=== PATIENT | female | born 1950 | race Caucasian/White ===

== ENCOUNTER 2019-06-27 13:30 | Day surgery (SDC) | payer MEDICARE, OTHER ==
[2019-06-25 09:18] VITALS: BMI 26.4
[~2019-06-27 13:30] MED LIST: HYDROmorphone 0.5 MG/0.5 ML SYRINGE IVP PRN; LACTATED RINGERS 1,000 ML IV SCH; ONDANSETRON 4 MG/2 ML VIAL IVP PRN
[2019-06-27 13:45] VITALS: TEMP 98.6
[2019-06-27] MEDS ORDERED: LIDOCAINE 1% 20 ML VIAL (10MG/ML) FOR IV START INTRADERMA ONE (13:57)
[2019-06-27] MEDS ORDERED: LIDOCAINE 1% INJ 10MG/ML (20 ML MDV) ONE (14:27)
[2019-06-27] MEDS ORDERED: PROPOFOL 10 MG/ML 20 ML VIAL IV ONE (14:27)
--- NOTE | 2019-06-27 15:27 | P.PCN ---
Date of Procedure: 06/27/19 Description of Procedure: Brief history: Patient is a pleasant scheduled for an elective upper endoscopy as well as colonoscopy as a part of evaluation of gastritis, blood per rectum and change in bowel habits. No prior colonoscopy reported. No family history of colon cancer reported. Procedure performed: Esophagogastroduodenoscopy with biopsy Colonoscopy with biopsy and tattoo Estimated blood loss: Minimal. Preoperative diagnosis: Gastritis, change in bowel habits, blood in stool [place] [facility] [place] After informed consent was obtained from the patient was brought into the endoscopy unit and IV sedation was administered by anesthesia under continuous monitoring. Initially upper endoscopy was done. The Olympus GF 190 video endoscope was inserted into the mouth and esophagus intubated without any difficulty and was gradually advanced into the stomach and duodenum and car efully examined. The bulb and second part of the duodenum appeared normal, with biopsies taken. The scope was then withdrawn into the stomach adequately insufflated with air and upon careful examination the antrum and body, cardia and fundus appeared normal, except for some mild scattered erythema in the body suggestive of mild gastritis biopsies taken. The scope was then withdrawn into the esophagus. The GE junction was located at 38 cm to the incisors. It appeared regular with no erythema erosions or ulcerations. Rest of the esophagus appeared normal. Patient tolerated the procedure well. At this time the patient continued to remain sedation. Initial digital rectal examination was normal. Olympus CF 190 video colonoscope was then inserted into the rectum and gradually advanced to distal sigmoid approximately 20 cm from the anal verge where a circumferential mass encompassing 80% of the lumen was seen. The mass was malignant-appearing and was biopsied. 3 mL of ink were used to tattoo the area distal to the mass. Retroflexion was performed in the rectum and no lesions were noted. Patient tolerated the procedure well. Impression: 1. Mild gastritis antrum and body biopsied. Duodenal biopsies. 2. Circumferential sigmoid mass 20 cm from the anal verge biopsied with tattoos placed distally to the mass. Recommendations: Findings of this examination were discussed with the patient as well as her family. Okay to resume diet. Okay to resume medications. Await pathology from biopsies. Patient will be referred for evaluation by surgical service. Primary care office will be informed of the findings.
[2019-06-27 15:39] VITALS: BP 137/85; PULSE 87; RESP 16
== END 2019-06-27 16:05 | disposition home or self-care (01) ==
LOC: ORWHC2ENDO 13:30
PROVIDERS: ATTEND Internal Medicine
DX: C18.7 Malignant neoplasm of sigmoid colon (principal); K29.50 Unspecified chronic gastritis without bleeding; I10 Essential (primary) hypertension; E07.9 Disorder of thyroid, unspecified; K21.9 Gastro-esophageal reflux disease without esophagitis; Z79.899 Other long term (current) drug therapy
CPT/HCPCS: 45380; 43239; 45381; 88305; J2001; J2704; 44404

== ENCOUNTER → 2019-07-19 | Outpatient (CLI) | payer MEDICARE, OTHER ==
[2019-07-19 11:14] LABS: Basophils % (A) 1 %; Eosinophils # (A) 0.1 k/uL (0-0.7); Eosinophils % (A) 2 %; HCT 44.8 % (34.0-46.0); HGB 14.5 gm/dL (11.4-16.0); Lymphocytes # (A) 1.1 k/uL (1.0-4.8); Lymphocytes % (A) 24 %; MCH 28.2 pg (25.0-35.0); MCHC 32.4 g/dL (31.0-37.0); MCV 87.1 fL (80.0-100.0); Monocytes # (A) 0.2 k/uL (0-1.0); Monocytes % (A) 4 %; Neutrophils % (A) 67 %; Platelet Count 272 k/uL (150-450); RBC 5.15 m/uL (3.80-5.40); RDW 12.3 % (11.5-15.5); WBC 4.4 k/uL (3.8-10.6)
[2019-07-19 11:24] LABS: INR 0.9 (<1.2); Partial Thromboplastin Time 22.9 sec (22.0-30.0); Prothrombin Time 10.1 sec (9.0-12.0)
[2019-07-19 15:54] LABS: Anion Gap 5.3 mmol/L (4.00-12.00); Carbon Dioxide 28.7 mmol/L (21.6-31.8); Non-African American GFR(CKD) 92.4 (60.0-200.0); Potassium 4.3 mmol/L (3.5-5.5)
== END ==
LOC: LABWHC1 10:41
PROVIDERS: ATTEND Student in an Organized Health Care Education/Training Program
DX: Z01.812 Encounter for preprocedural laboratory examination (principal); C18.9 Malignant neoplasm of colon, unspecified
CPT/HCPCS: 36415; 80048; 85025; 85610; 85730; 86850; 86900; 86901; 86920

== ENCOUNTER 2019-07-23 10:00 | Inpatient (IN) | payer MEDICARE, OTHER ==
[~2019-07-23 10:00] MED LIST changes: +ALVIMOPAN 12 MG CAPSULE PO ONE; +DEXAMETHASONE SOD PHOSPHATE 10 MG/ML 1 ML VIAL IV ONE; +HEPARIN SODIUM,PORCINE 5,000 UNIT/ML 1 ML VIAL SQ ONE; +MIDAZOLAM 2 MG/2 ML VIAL IV PRN; +ONDANSETRON 4 MG/2 ML VIAL IVP ONE; -ONDANSETRON 4 MG/2 ML VIAL IVP PRN; +metroNIDAZOLE-NS PMX 500 MG in SALINE 1 100ML.BAG IVPB ONE
[2019-07-23] MEDS ORDERED: LIDOCAINE 1% 20 ML VIAL (10MG/ML) FOR IV START INTRADERMA ONE (12:11)
[2019-07-23] MEDS ORDERED: MIDAZOLAM 2 MG/2 ML VIAL IV ONE (12:47)
[2019-07-23] MEDS ORDERED: LIDOCAINE 1% INJ 10MG/ML (20 ML MDV) ONE (13:09)
[2019-07-23] MEDS ORDERED: PROPOFOL 10 MG/ML 20 ML VIAL IV ONE (13:09)
[2019-07-23] MEDS ORDERED: ROCURONIUM BROMIDE 10 MG/ML 10 ML VIAL IV ONE (13:09)
[2019-07-23] MEDS ORDERED: MIDAZOLAM 2 MG/2 ML VIAL ONE (13:09)
[2019-07-23] MEDS ORDERED: NEOSTIGMINE 1 MG/ML 10 ML VIAL ONE (13:09)
[2019-07-23] MEDS ORDERED: ePHEDrine SULFATE/0.9% NACL/PF 50 MG/5 ML SYRINGE IV ONE (13:09)
[2019-07-23] MEDS ORDERED: GLYCOPYRROLATE 0.2 MG/ML 2 ML VIAL ONE (13:09)
[2019-07-23] MEDS ORDERED: fentaNYL (PF) 50 MCG/ML 2 ML AMP ONE (13:09)
[2019-07-23] MEDS ORDERED: PHENYLEPHRINE-0.9% NACL SYG 1 MG/10 ML SYRINGE ONE (13:09)
[2019-07-23] MEDS ORDERED: NALOXONE 0.4 MG/ML 1 ML VIAL IV PRN (13:20)
[2019-07-23] MEDS ORDERED: diphenhydrAMINE 50 MG/ML 1 ML VIAL IVP PRN (13:20)
[2019-07-23] MEDS ORDERED: NALBUPHINE 10 MG/ML (1 ML AMP) IV PRN (13:20)
[2019-07-23] MEDS ORDERED: LACTATED RINGERS 1,000 ML IV ONE (14:18)
--- NOTE | 2019-07-23 15:38 | P.OP ---
Date of Procedure: 07/23/19 Preoperative Diagnosis: colon cancer Postoperative Diagnosis: Same Procedure(s) Performed: Left hemicolectomy Anesthesia: GINETTE Surgeon: Peewee Rodriguez Veneer Puller #1: Jamir Prater Estimated Blood Loss (ml): 50 IV fluids (ml): 1,100 Urine output (ml): 100 Condition: stable Disposition: floor Description of Procedure: Patient is brought operative suite remained in the supine position underwent general endotracheal anesthesia per Department of anesthesia she was then placed in the lithotomy position prepped and draped in usual sterile fashion timeout performed correct patient correct procedure correct site was verified. A lower midline incision was made carried on the fashion which was incised and opened in the usual fashion no injuries were noted. The abdomen was inspected, the surface of the liver was palpated and no gross metastatic disease was noted. And the small bowel was packed into the upper quadrants. There was a retroperitoneal lesion noted at the aortic bifurcation this appeared to be mucinous in nature. Due to the mucinous nature of the lesion decision was made not to violate the retroperitoneum for biopsy or resection. The sigmoid colon was identified and the tattoo was identified. The colon was released along the white line of Toldt and approximate 8 cm proximal to the tumor the colon was stapled across with a RUTH ANN blue load 75 mm stapler. The mesentery was taken down with a LigaSure device at the base into the pelvis. At the rectosigmoid junction the colon was yet again stapled across with a 60 mm sequential firings of a Endo RUTH ANN purple load stapler. The specimen was marked with a proximal stitch and sent to pathology. There was ample amount of colon noted for anastomosis with no tension. Sizers were inserted through the rectum and 29 mm sizer was selected. The anvil was placed around the double's pursestring suture in the proximal end of the colon the sutures were tied down and a 29 mm Endo RUTH ANN stapler was used to create the low anastomosis. Leak test was performed and no leak was noted there was 2 complete donuts noted. Abdomen was copiously irrigated sponges were removed and sponge count, needle count and an short count was correct. The abdomen was closed with a 1 PDS looped suture followed by skin joshua. Sterile dressing was applied patient tolerated the procedure well no apparent complications
[2019-07-23] MEDS ORDERED: METOCLOPRAMIDE 5 MG/ML 2 ML VIAL IVP PRN (15:39)
[2019-07-23] MEDS: ROPIVACAINE 300 MG, HYDROMORPHONE (PF) 5 MG in SODIUM CHLORIDE 0.9% 190 ML EPIDURAL PRN ×2 (15:42→16:10)
[2019-07-23] MEDS: LACTATED RINGERS 1,000 ML IV SCH ×2 (16:50→23:48)
[2019-07-23 18:03] LABS: Basophils % (A) 0 %; Eosinophils % (A) 0 %; HCT 42.5 % (34.0-46.0); HGB 13.9 gm/dL (11.4-16.0); Lymphocytes # (A) 0.6 k/uL (1.0-4.8); Lymphocytes % (A) 5 %; MCH 28.6 pg (25.0-35.0); MCHC 32.8 g/dL (31.0-37.0); MCV 87.2 fL (80.0-100.0); Mean Platelet Volume 5.6; Monocytes # (A) 0.2 k/uL (0-1.0); Monocytes % (A) 1 %; Neutrophils # (A) 10.1 k/uL (1.3-7.7); Neutrophils % (A) 93 %; Platelet Count 219 k/uL (150-450); RBC 4.87 m/uL (3.80-5.40); RDW 12.3 % (11.5-15.5); WBC 10.9 k/uL (3.8-10.6)
[2019-07-23 18:07] LABS: African American GFR (CKD) >90 (>60 ml/min/1.73 sqM); Anion Gap 8 mmol/L; Blood Urea Nitrogen 19 mg/dL (7-17); Calcium 9.2 mg/dL (8.4-10.2); Carbon Dioxide 24 mmol/L (22-30); Chloride 108 mmol/L (98-107); Glucose 154 mg/dL (74-99); Non-African American GFR(CKD) >90 (>60 ml/min/1.73 sqM); Potassium 4.4 mmol/L (3.5-5.1); Sodium 140 mmol/L (137-145)
[2019-07-23] MEDS: FAMOTIDINE 20 MG/2 ML VIAL IV SCH (20:14)
[2019-07-24] MEDS: LACTATED RINGERS 1,000 ML IV SCH ×2 (05:21→19:31)
--- NOTE | 2019-07-24 07:20 | P.PN ---
Progress Note - Text 07/24 704am 68-year-old female status post left hemicolectomy by Dr. jones. Patient has an epidural catheter for postop pain control with solution running at 8 mL an hour with a VAS of 0. Patient has no motor or sensory deficits. Plan to continue epidural infusion
[2019-07-24] MEDS ORDERED: SODIUM CHLORIDE 0.9% 500 ML 500 ML IV ONE (07:36)
[2019-07-24] MEDS: METOPROLOL SUCCINATE (ER) 50 MG TAB.ER.24H PO SCH (07:54)
[2019-07-24] MEDS: FAMOTIDINE 20 MG/2 ML VIAL IV SCH ×2 (07:55→20:54)
[2019-07-24 08:00] LABS: Basophils % (A) 0 %; Eosinophils % (A) 0 %; HCT 40.8 % (34.0-46.0); HGB 13.3 gm/dL (11.4-16.0); Lymphocytes # (A) 0.7 k/uL (1.0-4.8); Lymphocytes % (A) 8 %; MCH 28.1 pg (25.0-35.0); MCHC 32.5 g/dL (31.0-37.0); MCV 86.6 fL (80.0-100.0); Mean Platelet Volume 6.3; Monocytes # (A) 0.5 k/uL (0-1.0); Monocytes % (A) 5 %; Neutrophils # (A) 7.7 k/uL (1.3-7.7); Neutrophils % (A) 85 %; Platelet Count 245 k/uL (150-450); RBC 4.71 m/uL (3.80-5.40); RDW 12.6 % (11.5-15.5)
[2019-07-24 08:15] LABS: African American GFR (CKD) >90 (>60 ml/min/1.73 sqM); Anion Gap 7 mmol/L; Blood Urea Nitrogen 26 mg/dL (7-17); Calcium 9.1 mg/dL (8.4-10.2); Carbon Dioxide 24 mmol/L (22-30); Chloride 108 mmol/L (98-107); Glucose 125 mg/dL (74-99); Non-African American GFR(CKD) 89 (>60 ml/min/1.73 sqM); Potassium 4.6 mmol/L (3.5-5.1); Sodium 139 mmol/L (137-145)
[2019-07-24] MEDS: ALVIMOPAN 12 MG CAPSULE PO SCH ×2 (09:10→20:54)
--- NOTE | 2019-07-24 14:24 | P.CONS ---
History of Present Illness - Reason for Consult Consult date: 07/23/19 Medical management Requesting physician: Peewee Rodriguez - Chief Complaint Colon cancer, post left sided colectomy, A. fib, anemia, hyperthyroidism - History of Present Illness 68-year-old female who started seen in the office patient few weeks ago found to have a new onset of A. fib was referred to have a colonoscopy came back with large mass in the left colon area patient was seen by Dr. rodriguez and schedule elective left sided colectomy. Surgery was done successfully today 07/23/2019 patient had epidural for pain management no NG tube she was diagnosed with A. fib the same time had hyperthyroidism was treated with Tapazole and has been doing well pulse rate is under control on beta cailin patient was not on any anticoagulation for now. Patient otherwise is doing well slightly bit anxious but pain is well controlled and hemodynamically very stable. Review of Systems CONSTITUTIONAL: Well-developed no acute respiratory distress. EYES: No icterus sclerae, no conjunctivitis. EARS, NOSE, MOUTH, THROAT, and FACE: No sore throat, lymphadenopathy, carotid bruits or deformity. RESPIRATORY: No SOB cough or wheezes. CARDIOVASCULAR: No CP, Palpitation, PND, Orthopnea, or angina. GASTROINTESTINAL: Slight abdominal pain with her surgical site with no nausea or vomiting. GENITOURINARY: Has a Samano catheter. INTEGUMENT/BREAST: Negative for any muscular injury with mild osteoarthritis.. HEMATOLOGIC/LYMPHATIC: Negative for bleed or purpura. MUSCULOSKELTAL: Negative for Myalgia or arthralgia. NEURLOGICAL: No LOC, Sz or syncope, blurred vision dizziness or abnormality.. BEHAVIORAL/PSYCH: Negative. ENDOCRINE: Negative. Past Medical History Past Medical History: Cancer, GERD/Reflux, Hypertension, Thyroid Disorder Additional Past Medical History / Comment(s): OCCASIONAL GERD, colon cancer, hx migraines, hx irregular heartbeat, occ blood in stool History of Any Multi-Drug Resistant Organisms: None Reported Past Surgical History: Section Additional Past Surgical History / Comment(s): colonoscopy Past Anesthesia/Blood Transfusion Reactions: No Reported Reaction Past Psychological History: No Psychological Hx Reported Smoking Status: Never smoker Past Alcohol Use History: None Reported Past Drug Use History: None Reported - Past Family History Mother Family Medical History: Cancer Father Family Medical History: Cancer Sister(s) Family Medical History: Cancer Additional Family Medical History / Comment(s): 2 SISTERS-BREAST CANCER. 1 SISTER CANCER IN LYMPH NODES. Medications and Allergies Home Medications Medication Instructions Recorded Confirmed Type Methimazole [Tapazole] 5 mg PO Q48H 06/25/19 07/23/19 History Metoprolol Succinate (ER) [Toprol 50 mg PO DAILY 06/25/19 07/23/19 History Xl] Allergies Allergy/AdvReac Type Severity Reaction Status Date / Time No Known Allergies Allergy Verified 07/23/19 12:01 Physical Exam Vitals: Vital Signs Temp Pulse Pulse Resp BP BP Pulse Ox 07/23/19 17:04 98.4 F 66 17 88/56 94 L 07/23/19 16:20 62 16 92/53 95 07/23/19 16:08 76 16 97/54 96 07/23/19 15:53 86 16 93/52 100 07/23/19 15:38 97 F L 87 18 106/56 98 07/23/19 11:59 98.6 F 102 H 16 151/76 95 Intake and Output 07/23/19 07/23/19 07/23/19 06:59 14:59 22:59 Intake Total 1500 105 Output Total 50 Balance 1500 55 Intake: IV 1500 105 Output: Estimated Blood Loss 50 Other: Voiding Method Indwelling Catheter Weight 72.121 kg 72.121 kg General Appearance: Alert, cooperative, no distress, appears stated age. Neck HEENT: Supple, no lymphadenopathy, no thyroid enlargement, no carotid bruits. Lungs: Clear to auscultation without crackles or wheezes no rhonchi, no deformity. Chest Wall: Chest wall normal expansion with deep inspiration no tenderness and no deformity was found on exam, no costochondral pain or discomfort. Heart: Regular rate and rhythm, S1, S2 normal, no murmur, rub or gallop no irregularity at the time of exam.. Back: Symmetric, no curvature, ROM normal, no CVA tenderness. Abdomen: Soft, no bowel sound, incision in the midline looks fine with no sign of bleeding. Extremities: Extremities normal, atraumatic, no cyanosis or edema. Pulses: 2+ and symmetric. Skin: Skin color, texture, tugor normal, no rashes or lesions. Neurologic: Alert oriented x3 cranial nerves II through XII intact, no motor deficit, no abnormal balance or gait. Results CBC & Chem 7: 07/24/19 07:32 07/24/19 07:45 Labs: Abnormal Lab Results - Last 24 Hours (Table) 07/19/19 07/23/19 07/23/19 Range/Units 10:51 18:00 18:00 WBC 10.9 H (3.8-10.6) k/uL Neutrophils # 10.1 H (1.3-7.7) k/uL Lymphocytes # 0.6 L (1.0-4.8) k/uL Chloride 108 H (98-107) mmol/L BUN 19 H (7-17) mg/dL Glucose 154 H (74-99) mg/dL Crossmatch See Detail Assessment and Plan Plan: 1 colon cancer: Post left sided colectomy doing well continue postsurgical care continue to watch patient hemodynamic status carefully. 2 A. fib: Pulse rate is well-controlled currently patient will continue metoprolol she is not on any anticoagulation for now except DVT prophylaxis postsurgery. 3 hyperthyroidism: On Tapazole 5 mg daily resume medication as soon as patient able to take medication. 4 anemia: Hemoglobin is holding well after surgery with no need for any transfusion but iron supplement and multivitamins. 5 hypertension: On metoprolol continue medication. 6 hyperglycemia: On diet control only Accu-Chek with sliding scales coverage and be done. 7 GI prophylaxis: Patient be on pantoprazole. 8 DVT prophylaxis: Venodyne boots and knee-high KIN hose will be done if agreeable heparin subcutaneous can be started in 24 hours. CODE STATUS: Full code. Dr. Rodriguez thank you very much for the consult if I can be any further help to please let me know
--- NOTE | 2019-07-24 15:59 | P.PN ---
Subjective Progress Note Date: 07/24/19 68-year-old female who started seen in the office patient few weeks ago found to have a new onset of A. fib was referred to have a colonoscopy came back with large mass in the left colon area patient was seen by Dr. jones and schedule elective left sided colectomy. Surgery was done successfully today 07/23/2019 patient had epidural for pain management no NG tube she was diagnosed with A. fib the same time had hyperthyroidism was treated with Tapazole and has been doing well pulse rate is under control on beta cailin patient was not on any anticoagulation for now. Patient otherwise is doing well slightly bit anxious but pain is well controlled and hemodynamically very stable. 07/24: Patient has been afebrile, heart rate 117, blood pressure 97/66, pulse ox 93% on room air repeat lab work reveals normal CBC, chloride 108, BUN 26, blood sugar 125. Patient remains with epidural in place for pain control. Patient has no motor or sensory deficits. Samano catheter remains in place. The patient is sitting up in a recliner. She denies any abdominal pain. She states she did have a small bowel movement last night. Bowel sounds are decreased. She is using incentive spirometry reaching 1000- 1500 MLS. Review of Systems CONSTITUTIONAL: Well-developed no acute respiratory distress. Denies fever, denies chills. EYES: No icterus sclerae, no conjunctivitis. EARS, NOSE, MOUTH, THROAT, and FACE: No sore throat, lymphadenopathy, carotid bruits or deformity. RESPIRATORY: No SOB cough or wheezes. CARDIOVASCULAR: No CP, Palpitation, PND, Orthopnea, or angina. GASTROINTESTINAL: Slight abdominal pain with her surgical site with no nausea or vomiting. GENITOURINARY: Has a Samano catheter. INTEGUMENT/BREAST: Negative for any muscular injury with mild osteoarthritis.. HEMATOLOGIC/LYMPHATIC: Negative for bleed or purpura. MUSCULOSKELTAL: Negative for Myalgia or arthralgia. NEURLOGICAL: No LOC, Sz or syncope, blurred vision dizziness or abnormality.. BEHAVIORAL/PSYCH: Negative. ENDOCRINE: Negative. Objective - Vital Signs Vital signs: Vital Signs Temp 98.3 F 07/24/19 07:30 Pulse 117 H 07/24/19 07:30 Resp 14 07/24/19 07:30 BP 97/66 07/24/19 07:30 Pulse Ox 93 L 07/24/19 07:30 Intake & Output 07/23/19 07/24/19 07/24/19 18:59 06:59 18:59 Intake Total 1605 1536 0.133 Output Total 50 700 Balance 1555 836 0.133 Weight 72.121 kg Intake: IV 1605 Intake, IV Titration 1536 0.133 Amount Lactated Ringers 1,000 ml 1440 @ 120 mls/hr IV .Q8H20M JOSE Rx#:[id number] Ropivacaine 300 mg 96 0.133 Hydromorphone (Pf) 5 mg In Sodium Chloride 0.9% 190 ml @ Per Protocol EPIDURAL .Q0M PRN Rx#: [id number] Output: Urine 700 Estimated Blood Loss 50 Other: Voiding Method Indwelling Catheter Indwelling Catheter - Exam General Appearance: Alert, cooperative, no distress, appears stated age. Patient is resting in chair. Neck HEENT: Supple, no lymphadenopathy, no thyroid enlargement, no carotid bruits. Lungs: Clear to auscultation without crackles or wheezes no rhonchi, no deformity. Chest Wall: Chest wall normal expansion with deep inspiration no tenderness and no deformity was found on exam, no costochondral pain or discomfort. Heart: Regular rate and rhythm, S1, S2 normal, no murmur, rub or gallop no irregularity at the time of exam.. Back: Symmetric, no curvature, ROM normal, no CVA tenderness. Abdomen: Soft, hypoactive bowel sound, incision in the midline looks fine with n o sign of bleeding. Samano catheter draining clear georgina urine. Extremities: Extremities normal, atraumatic, no cyanosis or edema. Pulses: 2+ and symmetric. Skin: Skin color, texture, tugor normal, no rashes or lesions. Neurologic: Alert oriented x3 cranial nerves II through XII intact, no motor def icit, no abnormal balance or gait. - Labs CBC & Chem 7: 07/24/19 07:32 07/24/19 07:45 Labs: Abnormal Lab Results - Last 24 Hours (Table) 07/19/19 07/23/19 07/23/19 Range/Units 10:51 18:00 18:00 WBC 10.9 H (3.8-10.6) k/uL Neutrophils # 10.1 H (1.3-7.7) k/uL Lymphocytes # 0.6 L (1.0-4.8) k/uL Chloride 108 H (98-107) mmol/L BUN 19 H (7-17) mg/dL Glucose 154 H (74-99) mg/dL Crossmatch See Detail 07/24/19 07/24/19 Range/Units 07:32 07:45 WBC (3.8-10.6) k/uL Neutrophils # (1.3-7.7) k/uL Lymphocytes # 0.7 L (1.0-4.8) k/uL Chloride 108 H (98-107) mmol/L BUN 26 H (7-17) mg/dL Glucose 125 H (74-99) mg/dL Crossmatch Assessment and Plan Plan: 1 colon cancer: Post left sided colectomy doing well continue postsurgical care continue to watch patient hemodynamic status carefully. Continue epidural for pain control, incentive spirometry, pain management. 2 A. fib: Pulse rate is well-controlled currently patient will continue metoprolol she is not on any anticoagulation for now except DVT prophylaxis postsurgery. 3 hyperthyroidism: On Tapazole 5 mg daily resume medication as soon as patient able to take medication. 4 anemia: Hemoglobin is holding well after surgery with no need for any transfusion but iron supplement and multivitamins. 5 hypertension: On metoprolol continue medication. 6 hyperglycemia: On diet control only Accu-Chek with sliding scales coverage and be done. 7 GI prophylaxis: Patient be on pantoprazole. 8 DVT prophylaxis: Venodyne boots and knee-high KIN hose will be done if agreeable heparin subcutaneous can be started in 24 hours. CODE STATUS: Full code. Discharge plan: Home Impression and plan of care have been directed as dictated by the signing physician. Puja Diamond nurse practitioner acting as scribe for signing ph ysician.
--- NOTE | 2019-07-24 16:31 | P.PN ---
Subjective Progress Note Date: 07/24/19 Patient is doing well. She apparently had a BM overnight after she was brought to her room however no flatus this AM. Objective - Vital Signs Vital signs: Vital Signs Temp 98.3 F 07/24/19 15:00 Pulse 80 07/24/19 16:00 Resp 16 07/24/19 15:00 BP 100/62 07/24/19 15:00 Pulse Ox 95 07/24/19 15:00 Intake & Output 07/23/19 07/24/19 07/24/19 18:59 06:59 18:59 Intake Total 1605 1536 44.167 Output Total 50 700 Balance 1555 836 44.167 Weight 72.121 kg Intake: IV 1605 Intake, IV Titration 1536 44.167 Amount Lactated Ringers 1,000 ml 1440 @ 120 mls/hr IV .Q8H20M JOSE Rx#:[id number] Ropivacaine 300 mg 96 44.167 Hydromorphone (Pf) 5 mg In Sodium Chloride 0.9% 190 ml @ Per Protocol EPIDURAL .Q0M PRN Rx#: [id number] Output: Urine 700 Estimated Blood Loss 50 Other: Voiding Method Indwelling Catheter Indwelling Catheter Indwelling Catheter - Constitutional General appearance: Present: cooperative - Respiratory Details: nonlabored - Cardiovascular Heart rate: 112 - Gastrointestinal Gastrointestinal Comment(s): S/NT/ND dressing is CDI - Psychiatric Psychiatric: Present: A&O x's 3 - Labs CBC & Chem 7: 07/24/19 07:32 07/24/19 07:45 Labs: Abnormal Lab Results - Last 24 Hours (Table) 07/19/19 07/23/19 07/23/19 Range/Units 10:51 18:00 18:00 WBC 10.9 H (3.8-10.6) k/uL Neutrophils # 10.1 H (1.3-7.7) k/uL Lymphocytes # 0.6 L (1.0-4.8) k/uL Chloride 108 H (98-107) mmol/L BUN 19 H (7-17) mg/dL Glucose 154 H (74-99) mg/dL Crossmatch See Detail 07/24/19 07/24/19 Range/Units 07:32 07:45 WBC (3.8-10.6) k/uL Neutrophils # (1.3-7.7) k/uL Lymphocytes # 0.7 L (1.0-4.8) k/uL Chloride 108 H (98-107) mmol/L BUN 26 H (7-17) mg/dL Glucose 125 H (74-99) mg/dL Crossmatch Assessment and Plan Assessment: POD#1 Left hemicolectomy Plan: Pain is well controlled on epidural. Management per anesthesia. She may have sips and ice chips. Ambulation/OOBTC. Cont. robledo with epidural
[2019-07-25] MEDS: LACTATED RINGERS 1,000 ML IV SCH ×4 (00:26→18:16)
[2019-07-25] MEDS: ROPIVACAINE 300 MG, HYDROMORPHONE (PF) 5 MG in SODIUM CHLORIDE 0.9% 190 ML EPIDURAL PRN (00:27)
--- NOTE | 2019-07-25 05:50 | P.PN ---
Progress Note - Text Progress Note Date: 07/25/19 68 yo female s/p open hemicolectomy, POD#2. VAS=2/10, no motor deficit. No nausea, vomiting or headache. Epidural catheter insertion site intact and clean. Keep epidural rate at 4 cc/hr.
[2019-07-25 08:33] LABS: Basophils % (A) 0 %; Eosinophils % (A) 0 %; HCT 38.1 % (34.0-46.0); HGB 12.9 gm/dL (11.4-16.0); Lymphocytes # (A) 1.3 k/uL (1.0-4.8); Lymphocytes % (A) 17 %; MCH 29.5 pg (25.0-35.0); MCHC 33.8 g/dL (31.0-37.0); MCV 87.4 fL (80.0-100.0); Mean Platelet Volume 5.5; Monocytes # (A) 0.4 k/uL (0-1.0); Monocytes % (A) 4 %; Neutrophils # (A) 6.1 k/uL (1.3-7.7); Neutrophils % (A) 77 %; Platelet Count 215 k/uL (150-450); RBC 4.36 m/uL (3.80-5.40); RDW 12.5 % (11.5-15.5)
[2019-07-25 08:43] LABS: African American GFR (CKD) >90 (>60 ml/min/1.73 sqM); Anion Gap 4 mmol/L; Blood Urea Nitrogen 23 mg/dL (7-17); Carbon Dioxide 28 mmol/L (22-30); Chloride 106 mmol/L (98-107); Glucose 86 mg/dL (74-99); Non-African American GFR(CKD) >90 (>60 ml/min/1.73 sqM); Potassium 4.6 mmol/L (3.5-5.1); Sodium 138 mmol/L (137-145)
[2019-07-25] MEDS: ALVIMOPAN 12 MG CAPSULE PO SCH ×2 (09:09→20:08)
[2019-07-25] MEDS: FAMOTIDINE 20 MG/2 ML VIAL IV SCH ×2 (09:09→20:08)
[2019-07-25] MEDS: METOPROLOL SUCCINATE (ER) 50 MG TAB.ER.24H PO SCH (09:09)
--- NOTE | 2019-07-25 12:14 | P.PN ---
Subjective Progress Note Date: 07/25/19 Patient is doing well. No reported BM or flatus. Pain well controlled. Up in chair. Objective - Vital Signs Vital signs: Vital Signs Temp 97.9 F 07/25/19 07:00 Pulse 91 07/25/19 07:00 Resp 16 07/25/19 07:00 BP 110/71 07/25/19 07:00 Pulse Ox 94 L 07/25/19 07:00 Intake & Output 07/24/19 07/25/19 07/25/19 18:59 06:59 18:59 Intake Total 44.167 1709.467 Output Total 400 975 Balance -355.833 734.467 Intake: Intake, IV Titration 44.167 1709.467 Amount Lactated Ringers 1,000 ml 1680 @ 120 mls/hr IV .Q8H20M JOSE Rx#:[id number] Ropivacaine 300 mg 44.167 29.467 Hydromorphone (Pf) 5 mg In Sodium Chloride 0.9% 190 ml @ Per Protocol EPIDURAL .Q0M PRN Rx#: [id number] Output: Urine 400 975 Other: Voiding Method Indwelling Catheter Indwelling Catheter Indwelling Catheter - Constitutional General appearance: Present: cooperative - Respiratory Details: nonlabored - Cardiovascular Rhythm: regular - Gastrointestinal Gastrointestinal Comment(s): S/ND Dressing CDI - Psychiatric Psychiatric: Present: A&O x's 3 - Labs CBC & Chem 7: 07/25/19 08:02 07/25/19 08:02 Labs: Abnormal Lab Results - Last 24 Hours (Table) 07/25/19 Range/Units 08:02 BUN 23 H (7-17) mg/dL Assessment and Plan Assessment: POD#2 Left hemicolectomy Plan: Pain is well controlled on epidural. Management per anesthesia. She may have sips and ice chips. Ambulation/OOBTC. Cont. robledo with epidural. Advance diet when return of bowel function occurs. Patient did have a small hypoechoic lesion on her liver on CT prior to surgery. Surgery was not delayed for biopsy of the lesion due to patient being symptomatic from the near obstructing lesion. I did discuss with the patient that she will need to be evaluated by IR for possible biopsy of the liver lesion. She understood
--- NOTE | 2019-07-25 13:57 | P.PN ---
Subjective Progress Note Date: 07/25/19 Principal diagnosis: Colon cancer, post left sided colectomy, A. fib, anemia, hyperthyroidism 68-year-old female who started seen in the office patient few weeks ago found to have a new onset of A. fib was referred to have a colonoscopy came back with large mass in the left colon area patient was seen by Dr. jones and schedule elective left sided colectomy. Surgery was done successfully today 07/23/2019 patient had epidural for pain management no NG tube she was diagnosed with A. fib the same time had hyperthyroidism was treated with Tapazole and has been doing well pulse rate is under control on beta cailin patient was not on any anticoagulation for now. Patient otherwise is doing well slightly bit anxious but pain is well controlled and hemodynamically very stable. 07/25: Patient is doing very well still on epidural for pain management no NG tube still have Samano catheter and ambulating with help pain is well-controlled patient is very stable hemodynamically. Objective - Vital Signs Vital signs: Vital Signs Temp 97.9 F 07/25/19 07:00 Pulse 91 07/25/19 07:00 Resp 16 07/25/19 07:00 BP 110/71 07/25/19 07:00 Pulse Ox 94 L 07/25/19 07:00 Intake & Output 07/24/19 07/25/19 07/25/19 18:59 06:59 18:59 Intake Total 44.167 1709.467 Output Total 400 975 Balance -355.833 734.467 Intake: Intake, IV Titration 44.167 1709.467 Amount Lactated Ringers 1,000 ml 1680 @ 120 mls/hr IV .Q8H20M [facility] Rx#:[id number] Ropivacaine 300 mg 44.167 29.467 Hydromorphone (Pf) 5 mg In Sodium Chloride 0.9% 190 ml @ Per Protocol EPIDURAL .Q0M PRN Rx#: [id number] Output: Urine 400 975 Other: Voiding Method Indwelling Catheter Indwelling Catheter Indwelling Catheter - Exam Review of Systems CONSTITUTIONAL: Well-developed no acute respiratory distress. EYES: No icterus sclerae, no conjunctivitis. EARS, NOSE, MOUTH, THROAT, and FACE: No sore throat, lymphadenopathy, carotid bruits or deformity. RESPIRATORY: No SOB cough or wheezes. CARDIOVASCULAR: No CP, Palpitation, PND, Orthopnea, or angina. GASTROINTESTINAL: Slight abdominal pain with her surgical site with no nausea or vomiting. GENITOURINARY: Has a Samano catheter. INTEGUMENT/BREAST: Negative for any muscular injury with mild osteoarthritis.. HEMATOLOGIC/LYMPHATIC: Negative for bleed or purpura. MUSCULOSKELTAL: Negative for Myalgia or arthralgia. NEURLOGICAL: No LOC, Sz or syncope, blurred vision dizziness or abnormality.. BEHAVIORAL/PSYCH: Negative. ENDOCRINE: Negative. Physical Exam General Appearance: Alert, cooperative, no distress, appears stated age. Neck HEENT: Supple, no lymphadenopathy, no thyroid enlargement, no carotid bruits. Lungs: Clear to auscultation without crackles or wheezes no rhonchi, no deformity. Chest Wall: Chest wall normal expansion with deep inspiration no tenderness and no deformity was found on exam, no costochondral pain or discomfort. Heart: Regular rate and rhythm, S1, S2 normal, no murmur, rub or gallop no irregularity at the time of exam.. Back: Symmetric, no curvature, ROM normal, no CVA tenderness. Abdomen: Soft, no bowel sound, incision in the midline looks fine with no sign of bleeding. Extremities: Extremities normal, atraumatic, no cyanosis or edema. Pulses: 2+ and symmetric. Skin: Skin color, texture, tugor normal, no rashes or lesions. Neurologic: Alert oriented x3 cranial nerves II through XII intact, no motor deficit, no abnormal balance or gait. - Labs CBC & Chem 7: 07/25/19 08:02 07/25/19 08:02 Labs: Abnormal Lab Results - Last 24 Hours (Table) 07/25/19 Range/Units 08:02 BUN 23 H (7-17) mg/dL Assessment and Plan Plan: 1 colon cancer: Post left sided colectomy doing well continue postsurgical care continue to watch patient hemodynamic status carefully. 2 A. fib: Pulse rate is well-controlled currently patient will continue metoprolol she is not on any anticoagulation for now except DVT prophylaxis postsurgery. 3 hyperthyroidism: On Tapazole 5 mg daily resume medication as soon as patient able to take medication. 4 anemia: Hemoglobin is holding well after surgery with no need for any transfusion but iron supplement and multivitamins. 5 hypertension: On metoprolol continue medication. 6 hyperglycemia: On diet control only Accu-Chek with sliding scales coverage and be done. 7 GI prophylaxis: Patient be on pantoprazole. Patient is doing very well advance PTOT still on epidural and well controlled on pain management, A. fib slightly more active still no anticoagulation needed at this point till this is discussed as an outpatient after recovery.
[2019-07-26] MEDS: ROPIVACAINE 300 MG, HYDROMORPHONE (PF) 5 MG in SODIUM CHLORIDE 0.9% 190 ML EPIDURAL PRN (05:03)
[2019-07-26 07:31] LABS: Basophils % (A) 0 %; Eosinophils # (A) 0.1 k/uL (0-0.7); Eosinophils % (A) 2 %; HCT 36.7 % (34.0-46.0); HGB 12.2 gm/dL (11.4-16.0); Lymphocytes # (A) 1.1 k/uL (1.0-4.8); Lymphocytes % (A) 18 %; MCH 29.1 pg (25.0-35.0); MCHC 33.2 g/dL (31.0-37.0); MCV 87.5 fL (80.0-100.0); Mean Platelet Volume 7.1; Monocytes # (A) 0.3 k/uL (0-1.0); Monocytes % (A) 4 %; Neutrophils # (A) 4.6 k/uL (1.3-7.7); Neutrophils % (A) 75 %; Platelet Count 166 k/uL (150-450); RDW 12.1 % (11.5-15.5); WBC 6.2 k/uL (3.8-10.6)
[2019-07-26] MEDS: METOPROLOL SUCCINATE (ER) 50 MG TAB.ER.24H PO SCH (09:04)
[2019-07-26] MEDS: FAMOTIDINE 20 MG/2 ML VIAL IV SCH ×2 (09:04→20:12)
[2019-07-26] MEDS: ALVIMOPAN 12 MG CAPSULE PO SCH ×2 (09:04→20:12)
[2019-07-26] MEDS: LACTATED RINGERS 1,000 ML IV SCH ×2 (11:20→20:12)
--- NOTE | 2019-07-26 12:33 | P.PN ---
Subjective Progress Note Date: 07/26/19 Patient is doing well. No BM but she is passing flatus. Pain well controlled. Up in chair. Objective - Vital Signs Vital signs: Vital Signs Temp 98.0 F 07/26/19 07:00 Pulse 96 07/26/19 07:00 Resp 16 07/26/19 07:00 BP 144/84 07/26/19 07:00 Pulse Ox 96 07/26/19 07:00 Intake & Output 07/25/19 07/26/19 07/26/19 18:59 06:59 18:59 Intake Total 960 1584.4 Output Total 650 450 Balance 310 1134.4 Intake: IV 960 Lactated Ringers 1,000 ml 960 @ 120 mls/hr IV .Q8H20M [facility] Rx#:[id number] Intake, IV Titration 1554.4 Amount Lactated Ringers 1,000 ml 1440 @ 120 mls/hr IV .Q8H20M [facility] Rx#:[id number] Ropivacaine 300 mg 114.4 Hydromorphone (Pf) 5 mg In Sodium Chloride 0.9% 190 ml @ Per Protocol EPIDURAL .Q0M PRN Rx#: [id number] Oral 30 Output: Urine 650 450 Uretheral (Robledo) 400 Other: Voiding Method Indwelling Catheter Indwelling Catheter Indwelling Catheter - Constitutional General appearance: Present: cooperative - Respiratory Details: nonlabored - Cardiovascular Heart rate: 80 - Gastrointestinal Gastrointestinal Comment(s): S/NT/ND dressing CDI - Psychiatric Psychiatric: Present: A&O x's 3 - Labs CBC & Chem 7: 07/26/19 06:50 07/25/19 08:02 Assessment and Plan Assessment: POD#3 Left hemicolectomy Plan: Pain is well controlled on epidural. Management per anesthesia. She may have clears today. Ambulation/OOBTC. Cont. robledo with epidural. Advance diet when return of bowel function occurs. Liver lesion discussed with IR. At this time there was low concern for it being metastatic lesion according to radiologist and the recommendation from IR is for CT PET as an outpatient.
--- NOTE | 2019-07-26 14:28 | P.PN ---
Progress Note - Text 07/26 645am 68-year-old female status post left hemicolectomy with Dr. jones. Patient has an epidural catheter for postop pain control with the solution running at 8 mL an hour. Patient has a VAS of 1 or sensory deficit.plan to DC epidural catheter and the nurse was informed
--- NOTE | 2019-07-26 14:54 | P.PN ---
Subjective Progress Note Date: 07/26/19 Principal diagnosis: Colon cancer, post left sided colectomy, A. fib, anemia, hyperthyroidism 68-year-old female who started seen in the office patient few weeks ago found to have a new onset of A. fib was referred to have a colonoscopy came back with large mass in the left colon area patient was seen by Dr. jones and schedule elective left sided colectomy. Surgery was done successfully today 07/23/2019 patient had epidural for pain management no NG tube she was diagnosed with A. fib the same time had hyperthyroidism was treated with Tapazole and has been doing well pulse rate is under control on beta cailin patient was not on any anticoagulation for now. Patient otherwise is doing well slightly bit anxious but pain is well controlled and hemodynamically very stable. 07/25: Patient is doing very well still on epidural for pain management no NG tube still have Samano catheter and ambulating with help pain is well-controlled patient is very stable hemodynamically. 07/26 colon pathology came back positive with invasive moderately differentiated adenocarcinoma margins negative for malignancy but there is 2 of 15 sample of mesenteric lymph node positive for metastasis. Patient is passing gas but no bowel movement yet advance diet still have Samano catheter still have epidural which will be removed probably by the end of the day today. She is agreeable to see oncology watch his the hospital for further management also she had a spot in the liver will be going for CT guided biopsy as an outpatient by intervention radiology. Objective - Vital Signs Vital signs: Vital Signs Temp 98.0 F 07/26/19 07:00 Pulse 96 07/26/19 07:00 Resp 16 07/26/19 07:00 BP 144/84 07/26/19 07:00 Pulse Ox 96 07/26/19 07:00 Intake & Output 07/25/19 07/26/19 07/26/19 18:59 06:59 18:59 Intake Total 960 1584.4 Output Total 650 450 Balance 310 1134.4 Weight 72.121 kg Intake: IV 960 Lactated Ringers 1,000 ml 960 @ 120 mls/hr IV .Q8H20M [facility] Rx#:[id number] Intake, IV Titration 1554.4 Amount Lactated Ringers 1,000 ml 1440 @ 120 mls/hr IV .Q8H20M [facility] Rx#:[id number] Ropivacaine 300 mg 114.4 Hydromorphone (Pf) 5 mg In Sodium Chloride 0.9% 190 ml @ Per Protocol EPIDURAL .Q0M [facility] Rx#: [id number] Oral 30 Output: Urine 650 450 Uretheral (Samano) 400 Other: Voiding Method Indwelling Catheter Indwelling Catheter Indwelling Catheter - Exam Review of Systems CONSTITUTIONAL: Well-developed no acute respiratory distress. EYES: No icterus sclerae, no conjunctivitis. EARS, NOSE, MOUTH, THROAT, and FACE: No sore throat, lymphadenopathy, carotid bruits or deformity. RESPIRATORY: No SOB cough or wheezes. CARDIOVASCULAR: No CP, Palpitation, PND, Orthopnea, or angina. GASTROINTESTINAL: Slight abdominal pain with her surgical site with no nausea or vomiting. GENITOURINARY: Has a Samano catheter. INTEGUMENT/BREAST: Negative for any muscular injury with mild osteoarthritis.. HEMATOLOGIC/LYMPHATIC: Negative for bleed or purpura. MUSCULOSKELTAL: Negative for Myalgia or arthralgia. NEURLOGICAL: No LOC, Sz or syncope, blurred vision dizziness or abnormality.. BEHAVIORAL/PSYCH: Negative. ENDOCRINE: Negative. Physical Exam General Appearance: Alert, cooperative, no distress, appears stated age. Neck HEENT: Supple, no lymphadenopathy, no thyroid enlargement, no carotid bruits. Lungs: Clear to auscultation without crackles or wheezes no rhonchi, no deformity. Chest Wall: Chest wall normal expansion with deep inspiration no tenderness and no deformity was found on exam, no costochondral pain or discomfort. Heart: Regular rate and rhythm, S1, S2 normal, no murmur, rub or gallop no irregularity at the time of exam.. Back: Symmetric, no curvature, ROM normal, no CVA tenderness. Abdomen: Soft, no bowel sound, incision in the midline looks fine with no sign of bleeding. Extremities: Extremities normal, atraumatic, no cyanosis or edema. Pulses: 2+ and symmetric. Skin: Skin color, texture, tugor normal, no rashes or lesions. Neurologic: Alert oriented x3 cranial nerves II through XII intact, no motor deficit, no abnormal balance or gait. - Labs CBC & Chem 7: 07/26/19 06:50 07/25/19 08:02 Assessment and Plan Plan: 1 colon cancer: Post left sided colectomy with pathology positive for invasive moderately differentiated adenocarcinoma with negative margin but 2 out of 15 lymph nodes positive with possible metastasis to the liver, we'll consult oncology for early involvement patient most likely will require chemotherapy after her liver biopsy. Further staging my P require and leave it up to onc ology. 2 A. fib: Pulse rate is well-controlled currently patient will continue metoprolol she is not on any anticoagulation for now except DVT prophylaxis postsurgery. 3 hyperthyroidism: On Tapazole 5 mg daily resume medication as soon as patient able to take medication. 4 anemia: Hemoglobin is holding well after surgery with no need for any transfusion but iron supplement and multivitamins. 5 hypertension: On metoprolol continue medication. 6 hyperglycemia: On diet control only Accu-Chek with sliding scales coverage and be done. 7 GI prophylaxis: Patient be on pantoprazole. Patient is doing very well advance PTOT still on epidural and well controlled on pain management, A. fib slightly more active still no anticoagulation needed at this point till this is discussed as an outpatient after recovery.
--- NOTE | 2019-07-26 15:57 | P.CONS ---
History of Present Illness - Reason for Consult Consult date: 07/26/19 sigmoid adenocarcinoma Requesting physician: Luis Collins - Chief Complaint Planned surgery - History of Present Illness Ms. Polo is a very pleasant 68-year-old female patient of Dr. Collins who had noticed unintentional weight loss, associated with abdominal pain, pain with bowel movements and blood in her stool. This prompted her to request a colonoscopy. Patient was seen by Dr. Nugent, had colonoscopy and EGD June 27. Sigmoid biopsy was positive for moderately differentiated adenocarcinoma. Patient was taken to surgery by Dr. Rodriguez on 07/23 and she had a left hemicolectomy. Final pathology revealing a moderately differentiated adenocarcinoma, negative margins, 2 out of 15 lymph nodes positive, no perforation, MSI reported stable. Patient states doing very well postoperatively, her pain is controlled, she is being advanced to a clear diet, she does have an appetite. Patient thinks may be her parents had type some type of cancer, she has 2 sisters, both had breast cancer, no personal history of cancer. She is in need of a mammogram. Review of Systems 14 point review of systems is negative except as stated in HPI Past Medical History Past Medical History: Cancer, GERD/Reflux, Hypertension, Thyroid Disorder Additional Past Medical History / Comment(s): OCCASIONAL GERD, colon cancer, hx migraines, hx irregular heartbeat, occ blood in stool History of Any Multi-Drug Resistant Organisms: None Reported Past Surgical History: Section Additional Past Surgical History / Comment(s): colonoscopy Past Anesthesia/Blood Transfusion Reactions: No Reported Reaction Past Psychological History: No Psychological Hx Reported Smoking Status: Never smoker Past Alcohol Use History: None Reported Past Drug Use History: None Reported - Past Family History Mother Family Medical History: Cancer Father Family Medical History: Cancer Sister(s) Family Medical History: Cancer Additional Family Medical History / Comment(s): 2 SISTERS-BREAST CANCER. 1 SISTER CANCER IN LYMPH NODES. Medications and Allergies Home Medications Medication Instructions Recorded Confirmed Type Methimazole [Tapazole] 5 mg PO Q48H 06/25/19 07/23/19 History Metoprolol Succinate (ER) [Toprol 50 mg PO DAILY 06/25/19 07/23/19 History Xl] Allergies Allergy/AdvReac Type Severity Reaction Status Date / Time No Known Allergies Allergy Verified 07/23/19 12:01 Physical Exam Vitals: Vital Signs Temp Pulse Resp BP Pulse Ox 07/26/19 14:51 98.0 F 76 15 132/81 94 L 07/26/19 07:00 98.0 F 96 16 144/84 96 07/26/19 00:20 98.2 F 104 H 18 126/71 94 L 07/25/19 18:56 97.8 F 80 18 134/83 95 Intake and Output 07/26/19 07/26/19 07/26/19 06:59 14:59 22:59 Intake Total 1554.4 Output Total 450 400 Balance 1104.4 -400 Intake: Intake, IV Titration 1554.4 Amount Lactated Ringers 1,000 ml 1440 @ 120 mls/hr IV .Q8H20M [facility] Rx#:[id number] Ropivacaine 300 mg 114.4 Hydromorphone (Pf) 5 mg In Sodium Chloride 0.9% 190 ml @ Per Protocol EPIDURAL .Q0M [facility] Rx#: [id number] Output: Urine 450 400 Uretheral (Samano) 400 Other: Voiding Method Indwelling Catheter Weight 72.121 kg - Constitutional General appearance: average body habitus, cooperative, no acute distress - EENT Eyes: anicteric sclerae, EOMI ENT: hearing grossly normal, normal oropharynx - Neck Neck: no lymphadenopathy - Respiratory Respiratory: bilateral: CTA - Cardiovascular Rhythm: irregularly irregular Heart sounds: normal: S1, S2 Abnormal Heart Sounds: no systolic murmur, no diastolic murmur, no rub, no S3 Gallop, no S4 Gallop, no click, no other leg Peripheral Edema: bilateral: None - Gastrointestinal Midline incision dressing is clean dry and intact, no unusual pain with palpation, only minimal swelling, hypoactive bowel sounds General gastrointestinal: no absent bowel sounds, decreased bowel sounds, no distended, no hepatomegaly, no hyperactive bowel sounds, no normal bowel sounds, no organomegaly, no rigid, no scaphoid, soft, no splenomegaly, no tenderness, no umbilical hernia, no ventral hernia - Integumentary Integumentary: normal, normal turgor - Neurologic Neurologic: CNII-XII intact - Musculoskeletal Musculoskeletal: strength equal bilaterally - Psychiatric Psychiatric: A&O x's 3, appropriate affect, intact judgment & insight Results CBC & Chem 7: 07/26/19 06:50 07/25/19 08:02 Assessment and Plan (1) Adenocarcinoma of sigmoid colon Narrative/Plan: I reviewed the pathology with the patient. I told her that because of the positive lymph nodes that Medical Oncology is going to recommend adjuvant chemotherapy. We discussed the reasoning behind adjuvant treatment. I explained to patient that treatment would not even be considered until she is completely healed up from surgery, usually somewhere between 4-6 weeks. She verbalized understanding. She is interested in talking with the Medical Oncologist about adjuvant chemotherapy. We'll place a request in chart for her to have an appointment in about [address] AP. Current Visit: Yes Status: Acute Priority: High Code(s): C18.7 - MALIGNANT NEOPLASM OF SIGMOID COLON SNOMED Code(s): 798038339 Plan: Doctor attests: I performed a history and physical examination of this patient, developed impression and plan of care, discussed with dictator. I agree with dictators note, documented as a scribe.
[2019-07-26] MEDS ORDERED: IOPAMIDOL CONTRAST (ORAL USE) VIAL PO PRN (17:26)
--- NOTE | 2019-07-27 07:02 | P.PN ---
Subjective Progress Note Date: 07/27/19 Patient is doing well. Small BM yesterday she is passing flatus. Pain well controlled. Up in chair, ambulating. Objective - Vital Signs Vital signs: Vital Signs Temp 98 F 07/27/19 01:42 Pulse 94 07/27/19 01:42 Resp 16 07/27/19 01:42 BP 100/65 07/27/19 01:42 Pulse Ox 95 07/27/19 01:42 Intake & Output 07/26/19 07/27/19 07/27/19 18:59 06:59 18:59 Intake Total 15 320 Output Total 400 Balance -385 320 Weight 72.121 kg Intake: Intake, IV Titration 240 Amount Lactated Ringers 1,000 ml 240 @ 20 mls/hr IV .Q24H [facility] Rx#:[id number] Oral 15 80 Output: Urine 400 Uretheral (Robledo) 400 Other: Voiding Method Indwelling Catheter Indwelling Catheter # Voids 3 - Constitutional General appearance: Present: cooperative - Respiratory Details: nonlabored - Gastrointestinal Gastrointestinal Comment(s): Incision CDI - Labs CBC & Chem 7: 07/26/19 06:50 07/25/19 08:02 Assessment and Plan Assessment: POD#4 Left hemicolectomy Plan: Pain is well controlled. DC epidural and robledo today, start oral pain meds as needed. Advance diet to soft. Discharge planning
[2019-07-27] MEDS ORDERED: HYDROmorphone 1 MG/ML 1 ML SYRINGE IVP PRN (07:17)
[2019-07-27] MEDS: FAMOTIDINE 20 MG/2 ML VIAL IV SCH ×2 (07:59→20:46)
[2019-07-27] MEDS: ALVIMOPAN 12 MG CAPSULE PO SCH (07:59)
[2019-07-27] MEDS: METOPROLOL SUCCINATE (ER) 50 MG TAB.ER.24H PO SCH (07:59)
[2019-07-27] MEDS: HYDROcodone/APAP 5-325MG 1 EACH TAB PO PRN ×2 (11:10→20:50)
--- NOTE | 2019-07-27 12:10 | P.PN ---
Subjective Progress Note Date: 07/27/19 68-year-old female who started seen in the office patient few weeks ago found to have a new onset of A. fib was referred to have a colonoscopy came back with large mass in the left colon area patient was seen by Dr. jones and schedule elective left sided colectomy. Surgery was done successfully today 07/23/2019 patient had epidural for pain management no NG tube she was diagnosed with A. fib the same time had hyperthyroidism was treated with Tapazole and has been doing well pulse rate is under control on beta cailin patient was not on any anticoagulation for now. Patient otherwise is doing well slightly bit anxious but pain is well controlled and hemodynamically very stable. 07/24: Patient has been afebrile, heart rate 117, blood pressure 97/66, pulse ox 93% on room air repeat lab work reveals normal CBC, chloride 108, BUN 26, blood sugar 125. Patient remains with epidural in place for pain control. Patient has no motor or sensory deficits. Samano catheter remains in place. The patient is sitting up in a recliner. She denies any abdominal pain. She states she did have a small bowel movement last night. Bowel sounds are decreased. She is using incentive spirometry reaching 1000- 1500 MLS. 07/25: Patient is doing very well still on epidural for pain management no NG t ube still have Samano catheter and ambulating with help pain is well-controlled patient is very stable hemodynamically. 07/26 colon pathology came back positive with invasive moderately differentiated adenocarcinoma margins negative for malignancy but there is 2 of 15 sample of mesenteric lymph node positive for metastasis. Patient is passing gas but no bowel movement yet advance diet still have Samano catheter still have epidural which will be removed probably by the end of the day today. She is agreeable to see oncology watch his the hospital for further management also she had a spot in the liver will be going for CT guided biopsy as an outpatient by intervention radiology. 07/27: Patient has been seen by oncology with recommendations for adjuvant chemotherapy as patient did have a positive lymph node and would start after she is completely healed from surgery usually 4-6 weeks. Patient is to follow-up with oncology in 6 weeks. Epidural was discontinued this morning and expect Samano catheter to be removed today. Patient states that she slept well last night. Pain is currently well controlled but she does have a little pain in the right lower quadrant. She is to start a chopped diet for lunch. She is utilizing incentive spirometry every hour. Review of Systems CONSTITUTIONAL: Well-developed no acute respiratory distress. Denies fever, denies chills. EYES: No icterus sclerae, no conjunctivitis. EARS, NOSE, MOUTH, THROAT, and FACE: No sore throat, lymphadenopathy, carotid bruits or deformity. RESPIRATORY: No SOB cough or wheezes. CARDIOVASCULAR: No CP, Palpitation, PND, Orthopnea, or angina. GASTROINTESTINAL: Slight abdominal pain with her surgical site with no nausea or vomiting. GENITOURINARY: Has a Samano catheter. INTEGUMENT/BREAST: Negative for any muscular injury with mild osteoarthritis.. HEMATOLOGIC/LYMPHATIC: Negative for bleed or purpura. MUSCULOSKELTAL: Negative for Myalgia or arthralgia. NEURLOGICAL: No LOC, Sz or syncope, blurred vision dizziness or abnormality.. BEHAVIORAL/PSYCH: Negative. ENDOCRINE: Negative. Objective - Vital Signs Vital signs: Vital Signs Temp 97.9 F 07/27/19 07:29 Pulse 98 07/27/19 07:29 Resp 16 07/27/19 07:29 BP 114/71 07/27/19 07:29 Pulse Ox 99 07/27/19 07:29 Intake & Output 07/26/19 07/27/19 07/27/19 18:59 06:59 18:59 Intake Total 15 320 Output Total 400 2300 Balance -385 320 -2300 Weight 72.121 kg Intake: Intake, IV Titration 240 Amount Lactated Ringers 1,000 ml 240 @ 20 mls/hr IV .Q24H [facility] Rx#:[id number] Oral 15 80 Output: Urine 400 2300 Uretheral (Samano) 400 Other: Voiding Method Indwelling Catheter Indwelling Catheter # Voids 3 - Exam General Appearance: Alert, cooperative, no distress, appears stated age. Patient is resting in bed. Neck HEENT: Supple, no lymphadenopathy, no thyroid enlargement, no carotid bruits. Lungs: Clear to auscultation without crackles or wheezes no rhonchi, no deformity. Chest Wall: Chest wall normal expansion with deep inspiration no tenderness and no deformity was found on exam, no costochondral pain or discomfort. Heart: Regular rate and rhythm, S1, S2 normal, no murmur, rub or gallop no irregularity at the time of exam.. Back: Symmetric, no curvature, ROM normal, no CVA tenderness. Abdomen: Soft, hypoactive bowel sound, incision in the midline looks fine with no sign of bleeding. Samano catheter draining clear georgina urine. Extremities: Extremities normal, atraumatic, no cyanosis or edema. Pulses: 2+ and symmetric. Skin: Skin color, texture, tugor normal, no rashes or lesions. Neurologic: Alert oriented x3 cranial nerves II through XII intact, no motor deficit, no abnormal balance or gait. - Labs CBC & Chem 7: 07/26/19 06:50 07/25/19 08:02 Assessment and Plan Plan: 1 colon cancer: Post left sided colectomy doing well continue postsurgical care continue to watch patient hemodynamic status carefully. Continue epidural discontinued this morning, continue incentive spirometry, pain management. 2 A. fib: Pulse rate is well-controlled currently patient will continue metoprolol she is not on any anticoagulation for now except DVT prophylaxis postsurgery. 3 hyperthyroidism: On Tapazole 5 mg daily resume medication as soon as patient able to take medication. 4 anemia: Hemoglobin is holding well after surgery with no need for any transfusion but iron supplement and multivitamins. 5 hypertension: On metoprolol continue medication. 6 hyperglycemia: On diet control only Accu-Chek with sliding scales coverage and be done. 7 GI prophylaxis: Patient be on pantoprazole. 8 DVT prophylaxis: Venodyne boots and knee-high KIN hose will be done if agreeable heparin subcutaneous can be started in 24 hours. CODE STATUS: Full code. Discharge plan: Home Impression and plan of care have been directed as dictated by the signing physician. Puja Diamond nurse practitioner acting as scribe for signing physician.
[2019-07-27] MEDS: HEPARIN SODIUM,PORCINE 5,000 UNIT/ML 1 ML VIAL SQ SCH (15:46)
[2019-07-27] MEDS: LACTATED RINGERS 1,000 ML IV SCH (17:06)
[2019-07-28] MEDS: HEPARIN SODIUM,PORCINE 5,000 UNIT/ML 1 ML VIAL SQ SCH ×3 (00:15→11:33)
[2019-07-28 06:05] LABS: Appearance,Urine Turbid (Clear); Bacteria,Urine Occasional /hpf; Bilirubin,Urine Negative (Negative); Blood,Urine Large (Negative); Color,Urine Dark Red; Glucose,Urine (UA) Negative (Negative); Ketones,Urine Negative (Negative); Leukocyte Esterase,Urine Large (Negative); Mucus,Urine Many /hpf; Nitrite,Urine Negative (Negative); Protein,Urine 2+ (Negative); RBC,Urine >182 /hpf (0-5); Specific Gravity,Urine 1.012 (1.001-1.035); Squamous Epithelial Cell,Urine <1 /hpf (0-4); Urobilinogen,Urine <2.0 mg/dL (<2.0); WBC,Urine >182 /hpf (0-5)
[2019-07-28] MEDS: METOPROLOL SUCCINATE (ER) 50 MG TAB.ER.24H PO SCH (08:13)
[2019-07-28] MEDS: HYDROcodone/APAP 5-325MG 1 EACH TAB PO PRN ×3 (08:13→20:59)
[2019-07-28] MEDS: FAMOTIDINE 20 MG/2 ML VIAL IV SCH ×2 (08:14→20:59)
[2019-07-28 09:29] LABS: African American GFR (CKD) >90 (>60 ml/min/1.73 sqM); Anion Gap 6 mmol/L; Blood Urea Nitrogen 12 mg/dL (7-17); Calcium 8.8 mg/dL (8.4-10.2); Carbon Dioxide 26 mmol/L (22-30); Chloride 106 mmol/L (98-107); Glucose 118 mg/dL (74-99); Non-African American GFR(CKD) >90 (>60 ml/min/1.73 sqM); Sodium 138 mmol/L (137-145)
--- NOTE | 2019-07-28 12:01 | P.PN ---
Subjective Progress Note Date: 07/28/19 68-year-old female who started seen in the office patient few weeks ago found to have a new onset of A. fib was referred to have a colonoscopy came back with large mass in the left colon area patient was seen by Dr. jones and schedule elective left sided colectomy. Surgery was done successfully today 07/23/2019 patient had epidural for pain management no NG tube she was diagnosed with A. fib the same time had hyperthyroidism was treated with Tapazole and has been doing well pulse rate is under control on beta cailin patient was not on any anticoagulation for now. Patient otherwise is doing well slightly bit anxious but pain is well controlled and hemodynamically very stable. 07/24: Patient has been afebrile, heart rate 117, blood pressure 97/66, pulse ox 93% on room air repeat lab work reveals normal CBC, chloride 108, BUN 26, blood sugar 125. Patient remains with epidural in place for pain control. Patient has no motor or sensory deficits. Samano catheter remains in place. The patient is sitting up in a recliner. She denies any abdominal pain. She states she did have a small bowel movement last night. Bowel sounds are decreased. She is using incentive spirometry reaching 1000- 1500 MLS. 07/25: Patient is doing very well still on epidural for pain management no NG t ube still have Samano catheter and ambulating with help pain is well-controlled patient is very stable hemodynamically. 07/26 colon pathology came back positive with invasive moderately differentiated adenocarcinoma margins negative for malignancy but there is 2 of 15 sample of mesenteric lymph node positive for metastasis. Patient is passing gas but no bowel movement yet advance diet still have Samano catheter still have epidural which will be removed probably by the end of the day today. She is agreeable to see oncology watch his the hospital for further management also she had a spot in the liver will be going for CT guided biopsy as an outpatient by intervention radiology. 07/27: Patient has been seen by oncology with recommendations for adjuvant chemotherapy as patient did have a positive lymph node and would start after she is completely healed from surgery usually 4-6 weeks. Patient is to follow-up with oncology in 6 weeks. Epidural was discontinued this morning and expect Samano catheter to be removed today. Patient states that she slept well last night. Pain is currently well controlled but she does have a little pain in the right lower quadrant. She is to start a chopped diet for lunch. She is utilizing incentive spirometry every hour. 07/28: Patient has been afebrile, heart rate 103, blood pressure 122/88, pulse ox 97% on room air. Patient had one episode of a dark susie colored urine for which a UA was sent. She has had no difficulty passing urine and no pain or burning with urination. Urinalysis is turbid, blood large, leukoesterase large, RBCs greater than 182, wbc's greater than 182, bacteria occasional. Urine culture will be obtained. Heparin will be discontinued although this is not thought to be cause of hematuria. Review of Systems CONSTITUTIONAL: Well-developed no acute respiratory distress. Denies fever, denies chills. EYES: No icterus sclerae, no conjunctivitis. EARS, NOSE, MOUTH, THROAT, and FACE: No sore throat, lymphadenopathy, carotid bruits or deformity. RESPIRATORY: No SOB cough or wheezes. CARDIOVASCULAR: No CP, Palpitation, PND, Orthopnea, or angina. GASTROINTESTINAL: Slight abdominal pain with her surgical site with no nausea or vomiting. GENITOURINARY: Reports hematuria INTEGUMENT/BREAST: Negative for any muscular injury with mild osteoarthritis.. MUSCULOSKELTAL: Negative for Myalgia or arthralgia. NEURLOGICAL: No LOC, Sz or syncope, blurred vision dizziness or abnormality.. BEHAVIORAL/PSYCH: Negative. ENDOCRINE: Negative. Objective - Vital Signs Vital signs: Vital Signs Temp 98.3 F 07/28/19 00:43 Pulse 103 H 07/28/19 00:43 Resp 18 07/28/19 00:43 BP 122/88 07/28/19 00:43 Pulse Ox 97 07/28/19 00:43 Intake & Output 07/27/19 07/28/19 07/28/19 18:59 06:59 18:59 Intake Total 880 560 Output Total 3025 1190 Balance -2147 -050 Intake: IV 800 Lactated Ringers 1,000 ml 800 @ 20 mls/hr IV .Q24H [facility] Rx#:[id number] Intake, IV Titration 180 Amount Lactated Ringers 1,000 ml 180 @ 20 mls/hr IV .Q24H [facility] Rx#:[id number] Oral 80 380 Output: Urine 3025 1190 Other: # Voids 1 1 - Exam General Appearance: Alert, cooperative, no distress, appears stated age. Patient is resting in chair and appears to be comfortable. Neck HEENT: Supple, no lymphadenopathy, no thyroid enlargement, no carotid bruits. Lungs: Clear to auscultation without crackles or wheezes no rhonchi, no deformity. Chest Wall: Chest wall normal expansion with deep inspiration no tenderness and no deformity was found on exam, no costochondral pain or discomfort. Heart: Regular rate and rhythm, S1, S2 normal, no murmur, rub or gallop no irregularity at the time of exam.. Back: Symmetric, no curvature, ROM normal, no CVA tenderness. Abdomen: Soft, hypoactive bowel sound, incision in the midline looks fine with no sign of bleeding. Extremities: Extremities normal, atraumatic, no cyanosis or edema. Pulses: 2+ and symmetric. Skin: Skin color, texture, tugor normal, no rashes or lesions. Neurologic: Alert oriented x3 cranial nerves II through XII intact, no motor deficit, no abnormal balance or gait. - Labs CBC & Chem 7: 07/26/19 06:50 07/28/19 09:03 Labs: Abnormal Lab Results - Last 24 Hours (Table) 07/28/19 Range/Units 05:40 Urine Appearance Turbid H (Clear) Urine Protein 2+ H (Negative) Urine Blood Large H (Negative) Ur Leukocyte Esterase Large H (Negative) Urine RBC >182 H (0-5) /hpf Urine WBC >182 H (0-5) /hpf Urine Bacteria Occasional H (None) /hpf Urine Mucus Many H (None) /hpf Assessment and Plan Plan: 1 colon cancer: Post left sided colectomy doing well continue postsurgical care continue to watch patient hemodynamic status carefully. Continue epidural discontinued this morning, continue incentive spirometry, pain management. 2 paroxysmal atrial fibrillation. Continue Toprol-XL. No anticoagulation. 3 hyperthyroidism: On Tapazole 5 mg daily resume medication as soon as patient able to take medication. 4 anemia: Hemoglobin is holding well after surgery with no need for any transfusion but iron supplement and multivitamins. 5 hypertension: On metoprolol continue medication. 6 hyperglycemia: On diet control only Accu-Chek with sliding scales coverage and be done. 7 GI prophylaxis: Patient be on pantoprazole. 8 DVT prophylaxis: Venodyne boots and knee-high KIN hose. 9. Hematuria secondary to Samano catheter trauma. Urine culture will be ob tained. Heparin discontinued. CODE STATUS: Full code. Discharge plan: Home Impression and plan of care have been directed as dictated by the signing physician. Puja Diamond nurse practitioner acting as scribe for signing physician.
--- NOTE | 2019-07-28 12:05 | P.PN ---
Subjective Progress Note Date: 07/28/19 Patient is doing well. Small BM yesterday she is passing flatus. Pain well controlled. Up in chair, ambulating. Since the robledo was discountinued patient has been having dark red urine. UA and culture sent. Objective - Vital Signs Vital signs: Vital Signs Temp 98.2 F 07/28/19 07:00 Pulse 111 H 07/28/19 07:00 Resp 19 07/28/19 07:00 BP 148/89 07/28/19 07:00 Pulse Ox 96 07/28/19 07:00 Intake & Output 07/27/19 07/28/19 07/28/19 18:59 06:59 18:59 Intake Total 880 560 Output Total 3025 1190 Balance -2145 -630 Intake: IV 800 Lactated Ringers 1,000 ml 800 @ 20 mls/hr IV .Q24H [facility] Rx#:[id number] Intake, IV Titration 180 Amount Lactated Ringers 1,000 ml 180 @ 20 mls/hr IV .Q24H [facility] Rx#:[id number] Oral 80 380 Output: Urine 3025 1190 Other: # Voids 1 1 - Constitutional General appearance: Present: cooperative - Respiratory Details: nonlabored - Cardiovascular Details: afib - Gastrointestinal Gastrointestinal Comment(s): S/NT/ND Incision CDI - Psychiatric Psychiatric: Present: A&O x's 3 - Labs CBC & Chem 7: 07/26/19 06:50 07/28/19 09:03 Labs: Abnormal Lab Results - Last 24 Hours (Table) 07/28/19 07/28/19 Range/Units 05:40 09:03 Creatinine 0.48 L (0.52-1.04) mg/dL Glucose 118 H (74-99) mg/dL Urine Appearance Turbid H (Clear) Urine Protein 2+ H (Negative) Urine Blood Large H (Negative) Ur Leukocyte Esterase Large H (Negative) Urine RBC >182 H (0-5) /hpf Urine WBC >182 H (0-5) /hpf Urine Bacteria Occasional H (None) /hpf Urine Mucus Many H (None) /hpf Assessment and Plan Assessment: POD#4 Left hemicolectomy Plan: Pain is well controlled.Diet is tolerated. Patient is being worked up for UTI. The dark blood could also represent old clot in bladder from manipulation during surgery. Will continue to watch closely. Anticipate DC tomorrow
[2019-07-28] MEDS: LACTATED RINGERS 1,000 ML IV SCH (20:42)
[2019-07-28] MEDS: ONDANSETRON 4 MG/2 ML VIAL IVP PRN (20:59)
[2019-07-29 07:02] LABS: African American GFR (CKD) >90 (>60 ml/min/1.73 sqM); Anion Gap 3 mmol/L; Blood Urea Nitrogen 11 mg/dL (7-17); Calcium 8.6 mg/dL (8.4-10.2); Carbon Dioxide 31 mmol/L (22-30); Chloride 105 mmol/L (98-107); Glucose 110 mg/dL (74-99); Non-African American GFR(CKD) >90 (>60 ml/min/1.73 sqM); Potassium 3.9 mmol/L (3.5-5.1); Sodium 139 mmol/L (137-145)
[2019-07-29] MEDS: ONDANSETRON 4 MG/2 ML VIAL IVP PRN (08:01)
[2019-07-29] MEDS: FAMOTIDINE 20 MG/2 ML VIAL IV SCH ×2 (08:01→21:14)
[2019-07-29] MEDS: METOPROLOL SUCCINATE (ER) 50 MG TAB.ER.24H PO SCH (08:01)
[2019-07-29] MEDS: HYDROcodone/APAP 5-325MG 1 EACH TAB PO PRN ×2 (08:31→13:24)
[2019-07-29 09:47] LABS: HCT 37.8 % (34.0-46.0); HGB 12.6 gm/dL (11.4-16.0); MCH 29.1 pg (25.0-35.0); MCHC 33.2 g/dL (31.0-37.0); MCV 87.5 fL (80.0-100.0); Mean Platelet Volume 6.7; Platelet Count 213 k/uL (150-450); RBC 4.32 m/uL (3.80-5.40); WBC 9.3 k/uL (3.8-10.6)
--- NOTE | 2019-07-29 10:40 | XR ---
EXAMINATION TYPE: XR abdomen 2V DATE OF EXAM: 07/29/2019 10:04 AM CLINICAL HISTORY: Bloating, nausea and prior colonic surgery. TECHNIQUE: Supine and upright views of the abdomen were obtained. COMPARISON: None. FINDINGS: There is gaseous distention of the left hemicolon and transverse colon without abnormal dil ation as caliber measures up to 5.3 cm. No dilated small bowel. Extensive degenerative changes of the spine with diffuse osseous demineralization levoscoliosis. No abnormal calcification in the abdomen or pelvis. Surgical sutures in the pelvis and joshua in the left lower quadrant. Lung bases are well aerated.. IMPRESSION: Gaseous distention without abnormal dilation of the left hemicolon. Colonic ileus is susp ected.
[2019-07-29] MEDS: SODIUM CHLORIDE 0.9% 1,000 ML IV SCH ×2 (13:15→23:55)
[2019-07-29 14:56] VITALS: BMI 27.6
--- NOTE | 2019-07-29 14:58 | P.PN ---
Subjective Progress Note Date: 07/29/19 68-year-old female who started seen in the office patient few weeks ago found to have a new onset of A. fib was referred to have a colonoscopy came back with large mass in the left colon area patient was seen by Dr. jones and schedule elective left sided colectomy. Surgery was done successfully today 07/23/2019 patient had epidural for pain management no NG tube she was diagnosed with A. fib the same time had hyperthyroidism was treated with Tapazole and has been doing well pulse rate is under control on beta cailin patient was not on any anticoagulation for now. Patient otherwise is doing well slightly bit anxious but pain is well controlled and hemodynamically very stable. 07/24: Patient has been afebrile, heart rate 117, blood pressure 97/66, pulse ox 93% on room air repeat lab work reveals normal CBC, chloride 108, BUN 26, blood sugar 125. Patient remains with epidural in place for pain control. Patient has no motor or sensory deficits. Samano catheter remains in place. The patient is sitting up in a recliner. She denies any abdominal pain. She states she did have a small bowel movement last night. Bowel sounds are decreased. She is using incentive spirometry reaching 1000- 1500 MLS. 07/25: Patient is doing very well still on epidural for pain management no NG t ube still have Samano catheter and ambulating with help pain is well-controlled patient is very stable hemodynamically. 07/26 colon pathology came back positive with invasive moderately differentiated adenocarcinoma margins negative for malignancy but there is 2 of 15 sample of mesenteric lymph node positive for metastasis. Patient is passing gas but no bowel movement yet advance diet still have Samano catheter still have epidural which will be removed probably by the end of the day today. She is agreeable to see oncology watch his the hospital for further management also she had a spot in the liver will be going for CT guided biopsy as an outpatient by intervention radiology. 07/27: Patient has been seen by oncology with recommendations for adjuvant chemotherapy as patient did have a positive lymph node and would start after she is completely healed from surgery usually 4-6 weeks. Patient is to follow-up with oncology in 6 weeks. Epidural was discontinued this morning and expect Samano catheter to be removed today. Patient states that she slept well last night. Pain is currently well controlled but she does have a little pain in the right lower quadrant. She is to start a chopped diet for lunch. She is utilizing incentive spirometry every hour. 07/28: Patient has been afebrile, heart rate 103, blood pressure 122/88, pulse ox 97% on room air. Patient had one episode of a dark susie colored urine for which a UA was sent. She has had no difficulty passing urine and no pain or burning with urination. Urinalysis is turbid, blood large, leukoesterase large, RBCs greater than 182, wbc's greater than 182, bacteria occasional. Urine culture will be obtained. Heparin will be discontinued although this is not thought to be cause of hematuria. 07/29: Patient states that she is not feeling well today. She complains of nausea every time she tries to eat. She states she is not passing gas today. She did have a smear of a bowel movement only. She is complaining of pain in the mid abdomen area. Hematuria is improved today. Abdominal x-rays ordered that revealed gaseous distention without abnormal dilatation of the left hemicolon. Colonic ileus is suspected. Urine culture showing gram-negative bacilli. CBC reveals a normal white count of 9.3, hemoglobin stable at 12.6, platelet count 213. Creatinine is 0.58. Review of Systems CONSTITUTIONAL: Well-developed no acute respiratory distress. Denies fever, denies chills. EYES: No icterus sclerae, no conjunctivitis. EARS, NOSE, MOUTH, THROAT, and FACE: No sore throat, lymphadenopathy, carotid bruits or deformity. RESPIRATORY: No SOB cough or wheezes. CARDIOVASCULAR: No CP, Palpitation, PND, Orthopnea, or angina. GASTROINTESTINAL: Reports abdominal pain, reports nausea. GENITOURINARY: Reports hematuria INTEGUMENT/BREAST: Negative for any muscular injury with mild osteoarthritis.. MUSCULOSKELTAL: Negative for Myalgia or arthralgia. NEURLOGICAL: No LOC, Sz or syncope, blurred vision dizziness or abnormality.. BEHAVIORAL/PSYCH: Negative. ENDOCRINE: Negative. Objective - Vital Signs Vital signs: Vital Signs Temp 98 F 07/29/19 07:00 Pulse 106 H 07/29/19 07:00 Resp 16 07/29/19 07:00 BP 134/76 07/29/19 07:00 Pulse Ox 94 L 07/29/19 07:00 Intake & Output 07/28/19 07/29/19 07/29/19 18:59 06:59 18:59 Intake Total 1170 Balance 1170 Intake: Oral 1170 Other: Voiding Method Toilet # Voids 4 2 # Bowel Movements 1 - Exam General Appearance: Alert, cooperative, no distress, appears stated age. Patient is resting in chair and appears to be comfortable. Neck HEENT: Supple, no lymphadenopathy, no thyroid enlargement, no carotid bruits. Lungs: Clear to auscultation without crackles or wheezes no rhonchi, no deformity. Chest Wall: Chest wall normal expansion with deep inspiration no tenderness and no deformity was found on exam, no costochondral pain or discomfort. Heart: Regular rate and rhythm, S1, S2 normal, no murmur, rub or gallop no irregularity at the time of exam.. Back: Symmetric, no curvature, ROM normal, no CVA tenderness. Abdomen: Soft, hypoactive bowel sound, incision in the midline with no sign of bleeding. Generalized mid abdominal tenderness, mild. Extremities: Extremities normal, atraumatic, no cyanosis or edema. Pulses: 2+ and symmetric. Skin: Skin color, texture, tugor normal, no rashes or lesions. Neurologic: Alert oriented x3 cranial nerves II through XII intact, no motor deficit, no abnormal balance or gait. - Labs CBC & Chem 7: 07/29/19 06:32 07/29/19 06:32 Labs: Abnormal Lab Results - Last 24 Hours (Table) 07/29/19 Range/Units 06:32 Carbon Dioxide 31 H (22-30) mmol/L Glucose 110 H (74-99) mg/dL Microbiology - Last 24 Hours (Table) 07/28/19 11:40 Urine Culture - Preliminary Urine,Clean Catch Assessment and Plan Plan: 1 colon cancer: Post left sided colectomy doing well continue postsurgical care continue to watch patient hemodynamic status carefully. Continue epidural discontinued, continue incentive spirometry, pain management. 2 paroxysmal atrial fibrillation. Continue Toprol-XL. No anticoagulation. 3 hyperthyroidism: On Tapazole 5 mg daily resume medication as soon as patient able to take medication. 4 anemia, currently with normal hemoglobin. 5 hypertension: On metoprolol continue medication. 6 hyperglycemia: On diet control only Accu-Chek with sliding scales coverage and be done. 7 GI prophylaxis: Patient be on pantoprazole. 8 DVT prophylaxis: Venodyne boots and knee-high KIN hose. 9. Hematuria secondary to Samano catheter trauma. Urine culture will be obtained. Heparin discontinued. Rocephin started prophylactically. CODE STATUS: Full code. Discharge plan: Home Impression and plan of care have been directed as dictated by the signing physician. Puja Diamond nurse practitioner acting as scribe for signing physician.
--- NOTE | 2019-07-29 17:08 | P.PN ---
Subjective Patient is doing well. 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 No pain. Passing gas. Objective - Vital Signs Vital signs: Vital Signs Temp 98.3 F 07/29/19 15:00 Pulse 72 07/29/19 15:00 Resp 16 07/29/19 15:00 BP 118/80 07/29/19 15:00 Pulse Ox 95 07/29/19 15:00 Intake & Output 07/28/19 07/29/19 07/29/19 18:59 06:59 18:59 Intake Total 1170 Balance 1170 Weight 77.474 kg Intake: Oral 1170 Other: Voiding Method Toilet Toilet # Voids 4 2 1 # Bowel Movements 1 - Constitutional General appearance: Present: cooperative - Respiratory Details: nonlabored - Cardiovascular Details: afib Heart rate: 90 - Gastrointestinal Gastrointestinal Comment(s): S/ND/Incision CDI - Psychiatric Psychiatric: Present: A&O x's 3 - Labs CBC & Chem 7: 07/29/19 06:32 07/29/19 06:32 Labs: Abnormal Lab Results - Last 24 Hours (Table) 07/29/19 Range/Units 06:32 Carbon Dioxide 31 H (22-30) mmol/L Glucose 110 H (74-99) mg/dL Microbiology - Last 24 Hours (Table) 07/28/19 11:40 Urine Culture - Preliminary Urine,Clean Catch Gram Neg Bacilli Assessment and Plan Assessment: POD#6 Left hemicolectomy Plan: Pain is well controlled.Diet is tolerated. Patient is being worked up for UTI. The dark blood could also represent old clot in bladder from manipulation during surgery. Will continue to watch closely.
[2019-07-29] MEDS: LACTATED RINGERS 1,000 ML IV SCH (19:09)
[2019-07-30] MEDS: HYDROcodone/APAP 5-325MG 1 EACH TAB PO PRN ×3 (00:07→17:35)
[2019-07-30 07:39] LABS: HCT 37.3 % (34.0-46.0); HGB 11.9 gm/dL (11.4-16.0); MCH 27.9 pg (25.0-35.0); MCHC 31.8 g/dL (31.0-37.0); MCV 87.6 fL (80.0-100.0); Mean Platelet Volume 6.4; Platelet Count 212 k/uL (150-450); RBC 4.26 m/uL (3.80-5.40); RDW 12.9 % (11.5-15.5); WBC 7.5 k/uL (3.8-10.6)
[2019-07-30 07:53] LABS: African American GFR (CKD) >90 (>60 ml/min/1.73 sqM); Anion Gap 6 mmol/L; Blood Urea Nitrogen 12 mg/dL (7-17); Calcium 8.6 mg/dL (8.4-10.2); Carbon Dioxide 31 mmol/L (22-30); Chloride 105 mmol/L (98-107); Glucose 102 mg/dL (74-99); Non-African American GFR(CKD) >90 (>60 ml/min/1.73 sqM); Potassium 3.8 mmol/L (3.5-5.1); Sodium 142 mmol/L (137-145)
[2019-07-30] MEDS: METOPROLOL SUCCINATE (ER) 50 MG TAB.ER.24H PO SCH (08:46)
[2019-07-30] MEDS: FAMOTIDINE 20 MG/2 ML VIAL IV SCH (08:46)
--- NOTE | 2019-07-30 11:59 | P.PN ---
Subjective Progress Note Date: 07/30/19 68-year-old female who started seen in the office patient few weeks ago found to have a new onset of A. fib was referred to have a colonoscopy came back with large mass in the left colon area patient was seen by Dr. jones and schedule elective left sided colectomy. Surgery was done successfully today 07/23/2019 patient had epidural for pain management no NG tube she was diagnosed with A. fib the same time had hyperthyroidism was treated with Tapazole and has been doing well pulse rate is under control on beta cailin patient was not on any anticoagulation for now. Patient otherwise is doing well slightly bit anxious but pain is well controlled and hemodynamically very stable. 07/24: Patient has been afebrile, heart rate 117, blood pressure 97/66, pulse ox 93% on room air repeat lab work reveals normal CBC, chloride 108, BUN 26, blood sugar 125. Patient remains with epidural in place for pain control. Patient has no motor or sensory deficits. Samano catheter remains in place. The patient is sitting up in a recliner. She denies any abdominal pain. She states she did have a small bowel movement last night. Bowel sounds are decreased. She is using incentive spirometry reaching 1000- 1500 MLS. 07/25: Patient is doing very well still on epidural for pain management no NG t ube still have Samano catheter and ambulating with help pain is well-controlled patient is very stable hemodynamically. 07/26 colon pathology came back positive with invasive moderately differentiated adenocarcinoma margins negative for malignancy but there is 2 of 15 sample of mesenteric lymph node positive for metastasis. Patient is passing gas but no bowel movement yet advance diet still have Samano catheter still have epidural which will be removed probably by the end of the day today. She is agreeable to see oncology watch his the hospital for further management also she had a spot in the liver will be going for CT guided biopsy as an outpatient by intervention radiology. 07/27: Patient has been seen by oncology with recommendations for adjuvant chemotherapy as patient did have a positive lymph node and would start after she is completely healed from surgery usually 4-6 weeks. Patient is to follow-up with oncology in 6 weeks. Epidural was discontinued this morning and expect Samano catheter to be removed today. Patient states that she slept well last night. Pain is currently well controlled but she does have a little pain in the right lower quadrant. She is to start a chopped diet for lunch. She is utilizing incentive spirometry every hour. 07/28: Patient has been afebrile, heart rate 103, blood pressure 122/88, pulse ox 97% on room air. Patient had one episode of a dark susie colored urine for which a UA was sent. She has had no difficulty passing urine and no pain or burning with urination. Urinalysis is turbid, blood large, leukoesterase large, RBCs greater than 182, wbc's greater than 182, bacteria occasional. Urine culture will be obtained. Heparin will be discontinued although this is not thought to be cause of hematuria. 07/29: Patient states that she is not feeling well today. She complains of nausea every time she tries to eat. She states she is not passing gas today. She did have a smear of a bowel movement only. She is complaining of pain in the mid abdomen area. Hematuria is improved today. Abdominal x-rays ordered that revealed gaseous distention without abnormal dilatation of the left hemicolon. Colonic ileus is suspected. Urine culture showing gram-negative bacilli. CBC reveals a normal white count of 9.3, hemoglobin stable at 12.6, platelet count 213. Creatinine is 0.58. 07/30: Hematuria has resolved. She states she has a little burning with urination. Appetite is a little better this morning and she did eat her br eakfast. No nausea today. She denies having bowel movement. Patient also complains of burning type pain across her abdomen. Plan is to increase activity today and anticipate discharge home in the next 24 hours. Review of Systems CONSTITUTIONAL: Well-developed no acute respiratory distress. Denies fever, denies chills. EYES: No icterus sclerae, no conjunctivitis. EARS, NOSE, MOUTH, THROAT, and FACE: No sore throat, lymphadenopathy, carotid bruits or deformity. RESPIRATORY: No SOB cough or wheezes. CARDIOVASCULAR: No CP, Palpitation, PND, Orthopnea, or angina. GASTROINTESTINAL: Reports abdominal pain, denies nausea. GENITOURINARY: Denies hematuria INTEGUMENT/BREAST: Negative for any muscular injury with mild osteoarthritis.. MUSCULOSKELTAL: Negative for Myalgia or arthralgia. NEURLOGICAL: No LOC, Sz or syncope, blurred vision dizziness or abnormality.. BEHAVIORAL/PSYCH: Negative. ENDOCRINE: Negative. Objective - Vital Signs Vital signs: Vital Signs Temp 98.2 F 07/30/19 02:53 Pulse 85 07/30/19 02:53 Resp 18 07/30/19 02:53 BP 133/87 07/30/19 02:53 Pulse Ox 97 07/30/19 02:53 Intake & Output 07/29/19 07/30/19 07/30/19 18:59 06:59 18:59 Intake Total 200 Balance 200 Weight 77.474 kg Intake: Oral 200 Other: Voiding Method Toilet Toilet # Voids 1 3 - Exam General Appearance: Alert, cooperative, no distress, appears stated age. Patient is resting in chair and appears to be comfortable. Neck HEENT: Supple, no lymphadenopathy, no thyroid enlargement, no carotid bruits. Lungs: Clear to auscultation without crackles or wheezes no rhonchi, no deformity. Chest Wall: Chest wall normal expansion with deep inspiration no tenderness and no deformity was found on exam, no costochondral pain or discomfort. Heart: Regular rate and rhythm, S1, S2 normal, no murmur, rub or gallop no irregularity at the time of exam.. Abdomen: Soft, hypoactive bowel sound, incision in the midline with no sign of bleeding. Generalized mid abdominal tenderness, mild. Extremities: Extremities normal, atraumatic, no cyanosis or edema. Pulses: 2+ and symmetric. Skin: Skin color, texture, tugor normal, no rashes or lesions. Neurologic: Alert oriented x3 cranial nerves II through XII intact, no motor deficit, no abnormal balance or gait. - Labs CBC & Chem 7: 07/30/19 06:39 07/30/19 06:39 Labs: Abnormal Lab Results - Last 24 Hours (Table) 07/30/19 Range/Units 06:39 Carbon Dioxide 31 H (22-30) mmol/L Glucose 102 H (74-99) mg/dL Microbiology - Last 24 Hours (Table) 07/28/19 11:40 Urine Culture - Preliminary Urine,Clean Catch Gram Neg Bacilli Assessment and Plan Plan: 1 colon cancer: Post left sided colectomy doing well continue postsurgical care continue to watch patient hemodynamic status carefully. Continue incentive spirometry, pain management. 2 paroxysmal atrial fibrillation. Continue Toprol-XL. No anticoagulation. 3 hyperthyroidism: On Tapazole 5 mg daily resume medication as soon as patient able to take medication. 4 anemia, currently with normal hemoglobin. 5 hypertension: On metoprolol continue medication. 6 hyperglycemia: On diet control only Accu-Chek with sliding scales coverage and be done. 7 GI prophylaxis: Patient be on pantoprazole. 8 DVT prophylaxis: Venodyne boots and knee-high KIN hose. 9. Hematuria secondary to Samano catheter trauma with possible catheter- associated e coli UTI. Rocephin started prophylactically. CODE STATUS: Full code. Discharge plan: Home Impression and plan of care have been directed as dictated by the signing physician. Puja Diamond nurse practitioner acting as scribe for signing physician.
--- NOTE | 2019-07-30 16:28 | P.PN ---
Subjective Progress Note Date: 07/30/19 Patient is doing well. 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 Minimal incisional pain. Passing gas and stool. Objective - Vital Signs Vital signs: Vital Signs Temp 98.1 F 07/30/19 15:07 Pulse 85 07/30/19 15:07 Resp 16 07/30/19 15:07 BP 123/71 07/30/19 15:07 Pulse Ox 96 07/30/19 15:07 Intake & Output 07/29/19 07/30/19 07/30/19 18:59 06:59 18:59 Intake Total 200 Balance 200 Weight 77.474 kg Intake: Oral 200 Other: Voiding Method Toilet Toilet # Voids 1 3 2 # Bowel Movements 2 - Constitutional General appearance: Present: cooperative - Respiratory Details: nonlabored - Cardiovascular Rhythm: regular - Gastrointestinal Gastrointestinal Comment(s): S/NT/ND incision CDI - Psychiatric Psychiatric: Present: A&O x's 3 - Labs CBC & Chem 7: 07/30/19 06:39 07/30/19 06:39 Labs: Abnormal Lab Results - Last 24 Hours (Table) 07/30/19 Range/Units 06:39 Carbon Dioxide 31 H (22-30) mmol/L Glucose 102 H (74-99) mg/dL Microbiology - Last 24 Hours (Table) 07/28/19 11:40 Urine Culture - Final Urine,Clean Catch Escherichia coli Assessment and Plan Assessment: POD#7 Left hemicolectomy Plan: Pain is well controlled.Diet is tolerated. Urine is clear. Patient is stable shepherd rgically for DC, will defer to medicine recs on if patient should have oral ABX for ecoli in urine as an outpatient.
[2019-07-30] MEDS: SODIUM CHLORIDE 0.9% 1,000 ML IV SCH (17:36)
[2019-07-30] MEDS: FAMOTIDINE 20 MG TAB PO SCH (21:18)
[2019-07-30] MEDS: LACTATED RINGERS 1,000 ML IV SCH (23:31)
[2019-07-31] MEDS: SODIUM CHLORIDE 0.9% 1,000 ML IV SCH (01:21)
[2019-07-31] MEDS: HYDROcodone/APAP 5-325MG 1 EACH TAB PO PRN (08:55)
[2019-07-31] MEDS: METOPROLOL SUCCINATE (ER) 50 MG TAB.ER.24H PO SCH (08:56)
[2019-07-31] MEDS: FAMOTIDINE 20 MG TAB PO SCH (08:56)
[2019-07-31 09:29] VITALS: BP 99/66; PULSE 101; RESP 17; TEMP 98.1
--- NOTE | 2019-07-31 13:30 | P.PN ---
Subjective Progress Note Date: 07/31/19 68-year-old female who started seen in the office patient few weeks ago found to have a new onset of A. fib was referred to have a colonoscopy came back with large mass in the left colon area patient was seen by Dr. jones and schedule elective left sided colectomy. Surgery was done successfully today 07/23/2019 patient had epidural for pain management no NG tube she was diagnosed with A. fib the same time had hyperthyroidism was treated with Tapazole and has been doing well pulse rate is under control on beta cailin patient was not on any anticoagulation for now. Patient otherwise is doing well slightly bit anxious but pain is well controlled and hemodynamically very stable. 07/24: Patient has been afebrile, heart rate 117, blood pressure 97/66, pulse ox 93% on room air repeat lab work reveals normal CBC, chloride 108, BUN 26, blood sugar 125. Patient remains with epidural in place for pain control. Patient has no motor or sensory deficits. Samano catheter remains in place. The patient is sitting up in a recliner. She denies any abdominal pain. She states she did have a small bowel movement last night. Bowel sounds are decreased. She is using incentive spirometry reaching 1000- 1500 MLS. 07/25: Patient is doing very well still on epidural for pain management no NG t ube still have Samano catheter and ambulating with help pain is well-controlled patient is very stable hemodynamically. 07/26 colon pathology came back positive with invasive moderately differentiated adenocarcinoma margins negative for malignancy but there is 2 of 15 sample of mesenteric lymph node positive for metastasis. Patient is passing gas but no bowel movement yet advance diet still have Samano catheter still have epidural which will be removed probably by the end of the day today. She is agreeable to see oncology watch his the hospital for further management also she had a spot in the liver will be going for CT guided biopsy as an outpatient by intervention radiology. 07/27: Patient has been seen by oncology with recommendations for adjuvant chemotherapy as patient did have a positive lymph node and would start after she is completely healed from surgery usually 4-6 weeks. Patient is to follow-up with oncology in 6 weeks. Epidural was discontinued this morning and expect Samano catheter to be removed today. Patient states that she slept well last night. Pain is currently well controlled but she does have a little pain in the right lower quadrant. She is to start a chopped diet for lunch. She is utilizing incentive spirometry every hour. 07/28: Patient has been afebrile, heart rate 103, blood pressure 122/88, pulse ox 97% on room air. Patient had one episode of a dark susie colored urine for which a UA was sent. She has had no difficulty passing urine and no pain or burning with urination. Urinalysis is turbid, blood large, leukoesterase large, RBCs greater than 182, wbc's greater than 182, bacteria occasional. Urine culture will be obtained. Heparin will be discontinued although this is not thought to be cause of hematuria. 07/29: Patient states that she is not feeling well today. She complains of nausea every time she tries to eat. She states she is not passing gas today. She did have a smear of a bowel movement only. She is complaining of pain in the mid abdomen area. Hematuria is improved today. Abdominal x-rays ordered that revealed gaseous distention without abnormal dilatation of the left hemicolon. Colonic ileus is suspected. Urine culture showing gram-negative bacilli. CBC reveals a normal white count of 9.3, hemoglobin stable at 12.6, platelet count 213. Creatinine is 0.58. 07/30: Hematuria has resolved. She states she has a little burning with urination. Appetite is a little better this morning and she did eat her br eakfast. No nausea today. She denies having bowel movement. Patient also complains of burning type pain across her abdomen. Plan is to increase activity today and anticipate discharge home in the next 24 hours. 07/31: Patient states that she is feeling much better today. She did have a bowel movement and ate breakfast this morning. Hematuria has resolved. She has been cleared for discharge by surgery. Vital signs this morning are afebrile, heart rate 101, blood pressure 99/66, pulse ox 95% on room air. Review of Systems CONSTITUTIONAL: Well-developed no acute respiratory distress. Denies fever, denies chills. EYES: No icterus sclerae, no conjunctivitis. EARS, NOSE, MOUTH, THROAT, and FACE: No sore throat, lymphadenopathy, carotid bruits or deformity. RESPIRATORY: No SOB cough or wheezes. CARDIOVASCULAR: No CP, Palpitation, PND, Orthopnea, or angina. GASTROINTESTINAL: Reports abdominal pain, denies nausea. Denies vomiting GENITOURINARY: Denies hematuria INTEGUMENT/BREAST: Negative for any muscular injury with mild osteoarthritis.. MUSCULOSKELTAL: Negative for Myalgia or arthralgia. NEURLOGICAL: No LOC, Sz or syncope, blurred vision dizziness or abnormality. BEHAVIORAL/PSYCH: Negative. ENDOCRINE: Negative. Objective - Vital Signs Vital signs: Vital Signs Temp 98.1 F 07/31/19 07:00 Pulse 101 H 07/31/19 07:00 Resp 17 07/31/19 07:00 BP 99/66 07/31/19 07:00 Pulse Ox 95 07/31/19 07:00 Intake & Output 07/30/19 07/31/19 07/31/19 18:59 06:59 18:59 Intake Total 100 Balance 100 Intake: Oral 100 Other: Voiding Method Toilet # Voids 2 1 # Bowel Movements 2 - Exam General Appearance: Alert, cooperative, no distress, appears stated age. Patient is ambulating in her room and appears to be comfortable. Neck HEENT: Supple, no lymphadenopathy, no thyroid enlargement, no carotid bruits. Lungs: Clear to auscultation without crackles or wheezes no rhonchi, no deformity. Chest Wall: Chest wall normal expansion with deep inspiration no tenderness and no deformity was found on exam, no costochondral pain or discomfort. Heart: Regular rate and rhythm, S1, S2 normal, no murmur, rub or gallop no irregularity at the time of exam.. Abdomen: Soft, hypoactive bowel sound, incision in the midline with no sign of bleeding. Generalized mid abdominal tenderness, mild. Extremities: Extremities normal, atraumatic, no cyanosis or edema. Pulses: 2+ and symmetric. Skin: Skin color, texture, tugor normal, no rashes or lesions. Neurologic: Alert oriented x3 cranial nerves II through XII intact, no motor deficit, no abnormal balance or gait. - Labs CBC & Chem 7: 07/30/19 06:39 07/30/19 06:39 Labs: Microbiology - Last 24 Hours (Table) 07/28/19 11:40 Urine Culture - Final Urine,Clean Catch Escherichia coli Assessment and Plan Plan: 1 colon cancer: Post left sided colectomy doing well continue postsurgical care continue to watch patient hemodynamic status carefully. Continue incentive spirometry, pain management. 2 paroxysmal atrial fibrillation. Continue Toprol-XL. No anticoagulation. 3 hyperthyroidism: On Tapazole 5 mg daily resume medication as soon as patient able to take medication. 4 anemia, currently with normal hemoglobin. 5 hypertension: On metoprolol continue medication. 6 hyperglycemia: On diet control only Accu-Chek with sliding scales coverage and be done. 7 GI prophylaxis: Patient be on pantoprazole. 8 DVT prophylaxis: Venodyne boots and knee-high KIN hose. 9. Hematuria secondary to Samano catheter trauma with possible catheter- associated e coli UTI. Rocephin started prophylactically and transition to oral. CODE STATUS: Full code. Discharge plan: Home today Impression and plan of care have been directed as dictated by the signing physician. Puja Diamond nurse practitioner acting as scribe for signing physician.
== END 2019-07-31 14:33 | disposition home or self-care (01) | DRG 330 ==
LOC: 2ORMAIN 11:28 → 4SSUR 15:30
PROVIDERS: ADMIT Student in an Organized Health Care Education/Training Program; ATTEND Student in an Organized Health Care Education/Training Program
PROC: 0DTG0ZZ Resection of Left Large Intestine, Open Approach (ICD-10-PCS; principal; 2019-07-23 13:00)
DX: C18.7 Malignant neoplasm of sigmoid colon (principal); C77.9 Secondary and unspecified malignant neoplasm of lymph node, unspecified; T83.511A Infection and inflammatory reaction due to indwelling urethral catheter, initial encounter; N39.0 Urinary tract infection, site not specified; K56.7 Ileus, unspecified; D64.9 Anemia, unspecified; E05.90 Thyrotoxicosis, unspecified without thyrotoxic crisis or storm; I10 Essential (primary) hypertension; Z80.3 Family history of malignant neoplasm of breast; Z79.899 Other long term (current) drug therapy; R73.9 Hyperglycemia, unspecified; I48.0 Paroxysmal atrial fibrillation; R31.9 Hematuria, unspecified; Y84.6 Urinary catheterization as the cause of abnormal reaction of the patient, or of later complication, without mention of misadventure at the time of the procedure; B96.20 Unspecified Escherichia coli [E. coli] as the cause of diseases classified elsewhere
CPT/HCPCS: 36415; 74019; 80048; 81001; 85025; 85027; 86850; 86900; 86901; 86920; 87077; 87086; 87186; 88309

== ENCOUNTER 2019-09-07 17:10 | Emergency (ER) | payer MEDICARE, OTHER ==
[2019-09-07 17:16] VITALS: RESP 18
--- NOTE | 2019-09-07 18:12 | ED ---
General Adult HPI - General Chief complaint: Recheck/Abnormal Lab/Rx Stated complaint: poss infection-post op Time Seen by Provider: 09/07/19 17:25 Source: patient, RN notes reviewed, old records reviewed Mode of arrival: ambulatory Limitations: no limitations - History of Present Illness Initial comments: 68-year-old female patient with past history of colon cancer presents to ED for chief complaint of redness around port placement. Patient had a port placed on for chemotherapy. Noted some redness around it yesterday and today. Denies any other systemic symptoms. Denies any other complaints. Systemic: Pt denies fatigue, fever/chills. Pt denies weakness, night sweats, weight loss. Neuro: Pt denies headache, visual disturbances, syncope or pre-syncope. HEENT: Pt denies ocular discharge or irritation, otalgia, rhinorrhea, pharyngitis or notable lymphadenopathy. Cardiopulmonary: Pt denies chest pain, SOB, heart palpitations, dyspnea on exertion. Abdominal/GI: Pt denies abdominal pain, n/v/d. : Pt denies dysuria, burning w/ urination, frequency/urgency. Denies new onset urinary or bowel incontinence. MSK: Pt denies myalgia, loss of strength or function in extremities. Neuro: Pt denies new onset weakness, paresthesias. - Related Data Home Medications Medication Instructions Recorded Confirmed Methimazole [Tapazole] 5 mg PO Q48H 06/25/19 07/23/19 Metoprolol Succinate (ER) [Toprol 50 mg PO DAILY 06/25/19 07/23/19 Xl] Previous Rx's Medication Instructions Recorded HYDROcodone/APAP 5-325MG [[place] 1 - 2 tab PO Q6HR PRN #15 tab 07/30/19 5-325] Cefuroxime Axetil [Ceftin] 500 mg PO BID #10 tab 07/31/19 Allergies Allergy/AdvReac Type Severity Reaction Status Date / Time No Known Allergies Allergy Verified 09/07/19 17:13 Review of Systems ROS Statement: Those systems with pertinent positive or pertinent negative responses have been documented in the HPI. ROS Other: All systems not noted in ROS Statement are negative. Past Medical History Past Medical History: Cancer, GERD/Reflux, Hypertension, Thyroid Disorder Additional Past Medical History / Comment(s): OCCASIONAL GERD, colon cancer, hx migraines, hx irregular heartbeat, occ blood in stool History of Any Multi-Drug Resistant Organisms: None Reported Past Surgical History: Section Additional Past Surgical History / Comment(s): colonoscopy, mediport R chest Past Anesthesia/Blood Transfusion Reactions: No Reported Reaction Past Psychological History: No Psychological Hx Reported Smoking Status: Never smoker Past Alcohol Use History: None Reported Past Drug Use History: None Reported - Past Family History Mother Family Medical History: Cancer Father Family Medical History: Cancer Sister(s) Family Medical History: Cancer Additional Family Medical History / Comment(s): 2 SISTERS-BREAST CANCER. 1 SISTER CANCER IN LYMPH NODES. General Exam - General Exam Comments Initial Comments: Constitutional: NAD, AOX3, Pt has pleasant affect. HEENT: NC/AT, trachea midline, neck supple, no lymphadenopathy. Posterior pharynx non erythematous, without exudates. External ears appear normal, without discharge. Mucous membranes moist. Eyes PERRLA, EOM intact. There is no scleral icterus. No pallor noted. Cardiopulmonary: RRR, no murmurs, rubs or gallops, no JVD noted. Lungs CTAB in anterior and posterior heard. No peripheral edema. Abdominal exam: Abdomen soft and non-distended. Abdomen non-tender to palpation in all 4 quadrants. Bowel sounds active in LLQ. No hepatosplenomegaly. No ecchymosis Neuro: CN II-XII grossly intact. No nuchal rigidity. No raccon eyes, no park sign, no hemotympanum. No cervical spinal tenderness. MSK: No posterior calf tenderness bilaterally, homans sign negative bilaterally. Posterior tibialis and radial pulse +2 bilaterally. Sensation intact in upper and lower extremities. Full active ROM in upper and lower extremities, 5/5 stregnth. Derm: Mild amount of erythema around port placement. Incision sites are examined and he appeared be clean and dry without any purulent drainage. This erythema is sharply demarginated no fluctuance or discharge. Limitations: no limitations Course Vital Signs 09/07/19 09/07/19 17:14 18:30 Temperature 97.9 F 98.2 F Pulse Rate 109 H 87 Respiratory 18 18 Rate Blood Pressure 172/94 135/92 O2 Sat by Pulse 100 95 Oximetry Medical Decision Making - Medical Decision Making 68-year-old female patient with past history of colon cancer presents to ED for chief complaint of redness around port placement. Patient had a port placed on for chemotherapy. Noted some redness around it yesterday and today. Denies any other systemic symptoms. Denies any other complaints. Pt VSS, afebrile. Physical exam displayed: Mild amount of erythema around port placement. Incision sites are examined and he appeared be clean and dry without any purulent drainage. This erythema is sharply demarginated no fluctuance or discharge. Medically appears to be contact dermatitis from either Decore prep or the tape. Patient is also examined by Dr. Grace who was in agreement. Pt will be discharged and will follow up with PCP and Dr. Rodriguez. Will return to ER if condition worsens. Disposition Clinical Impression: Skin sensitivity, Contact dermatitis Disposition: HOME SELF-CARE Condition: Stable Instructions (If sedation given, give patient instructions): Contact Dermatitis (ED) Additional Instructions: Follow-up with primary care provider and Dr. Rodriguez tomorrow. Return to ER if condition worsens. Is patient prescribed a controlled substance at d/c from ED?: No Referrals: Luis Collins MD [Primary Care Provider] - 1-2 days
[2019-09-07 18:31] VITALS: BP 135/92; PULSE 87; TEMP 98.2
== END 2019-09-07 18:31 | disposition home or self-care (01) ==
LOC: EC 17:10
DX: L25.9 Unspecified contact dermatitis, unspecified cause (principal); I10 Essential (primary) hypertension; Z85.038 Personal history of other malignant neoplasm of large intestine; Z79.899 Other long term (current) drug therapy
CPT/HCPCS: 99283

== ENCOUNTER → 2019-09-13 | Outpatient (CLI) | payer MEDICARE, OTHER ==
--- NOTE | 2019-09-13 11:06 | MM ---
Reason for exam: clinical finding. Last mammogram was performed 11 years and 3 months ago. History: Patient is postmenopausal and had first child at age 39. Family history of breast cancer in sister at age 50. Physical Findings: Nurse Summary: 0.5cm nodule in the left breast at 1 o'clock (nurse khoi). MG 3D Diag Mammo W/Cad LESLYE Bilateral CC and MLO view(s) were taken. Prior study comparison: June 19, 2008, right breast bilat/unilat ultrasound. The breast tissue is heterogeneously dense. This may lower the sensitivity of mammography. Finding: There is a 6 mm round mass located 7 cm from the nipple in the upper outer quadrant of the right breast, 4cm anterior to port. Right mediport. These results were verbally communicated with the patient and result sheet given to the patient on 09/13/19. ASSESSMENT: Incomplete: need additional imaging evaluation, BI-RAD 0 RECOMMENDATION: Ultrasound of both breasts.
--- NOTE | 2019-09-13 11:08 | USB ---
Reason for exam: additional evaluation requested from abnormal screening. History: Patient is postmenopausal and had first child at age 39. Family history of breast cancer in sister at age 50. US Breast Limited BILAT Right limited breast ultrasound including focal area of concern, retroareolar and axilla demonstrates a 0.2 x 0.3 x 0.2cm oval, irregular lesion too small to characterize at 9 o'clock and a 0.6 x 0.5 x 0.4cm lymph node at 10 o'clock, benign correlates to mammogram. Left limited breast ultrasound including focal area of concern, retroareolar and axilla demonstrates mammary tissue in dense breast tissue at 1 o'clock, not at palpable. These results were verbally communicated with the patient and result sheet given to the patient on 09/13/19. ASSESSMENT: Probably benign, BI-RAD 3 RECOMMENDATION: Ultrasound of both breasts in 6 months.
== END | disposition home or self-care (01) ==
LOC: RADMAMWWP 08:05
PROVIDERS: ATTEND Internal Medicine Hematology & Oncology
DX: N63.10 Unspecified lump in the right breast, unspecified quadrant (principal); N63.20 Unspecified lump in the left breast, unspecified quadrant; R92.8 Other abnormal and inconclusive findings on diagnostic imaging of breast
CPT/HCPCS: 77066; 76642; G0279; 77062

== ENCOUNTER → 2020-02-12 | Outpatient (CLI) | payer MEDICARE, OTHER ==
--- NOTE | 2020-02-12 09:48 | US ---
EXAMINATION TYPE: US thyroid st tissue head/neck DATE OF EXAM: 02/12/2020 COMPARISON: NONE CLINICAL HISTORY: E04.2 goiter. Thyroid nodules GLAND SIZE: Right Lobe: 4.0 x 1.6 x 2.9 cm Overall Parenchyma: heterogenous Left Lobe: 3.6 x 2.4 x 2.4 cm Overall Parenchyma: heterogeneous Isthmus Thickness: .4 cm NODULES RIGHT: # of nodules measured on right: Enlarged and appears nodular. LEFT: # of nodules measured on left: Enlarged and appears nodular. ISTHMUS: # of nodules measured in the isthmus: 1 1. 3.0 x 1.6 x 2.4 cm hypoechoic mixed nodule at the left pole with poorly defined margins; . This nodule is wider than tall and shows intranodular vascularity. Prior size No prior Bilateral neck scanned, no evidence of lymphadenopathy. IMPRESSION: Bilateral nonspecific thyroid nodularity.
== END | disposition home or self-care (01) ==
LOC: RADUSWWP 08:39
PROVIDERS: ATTEND Internal Medicine
DX: E04.2 Nontoxic multinodular goiter (principal)
CPT/HCPCS: 76536; 76705

== ENCOUNTER → 2020-02-12 | Outpatient (CLI) | payer MEDICARE, OTHER ==
--- NOTE | 2020-02-12 09:53 | US ---
EXAMINATION TYPE: US liver DATE OF EXAM: 02/12/2020 COMPARISON: NONE CLINICAL HISTORY: R94.5 abnormal liver function study. Abnormal liver function EXAM MEASUREMENTS: Liver Length: 11.1 cm Gallbladder Wall: 02 cm CBD: .4 cm Right Kidney: 9.7 x 3.7 x 4.5 cm Pancreas: Obscured by bowel gas Liver: Increased attenuation Gallbladder: No stones seen Evidence for sonographic Leung's sign: No CBD: wnl Right Kidney: wnl IMPRESSION: Increased hepatic attenuation may reflect mild fatty liver.
== END | disposition home or self-care (01) ==
LOC: RADUSWWP 08:41
PROVIDERS: ATTEND Internal Medicine Hematology & Oncology
DX: R94.5 Abnormal results of liver function studies (principal)
CPT/HCPCS: 76705

== ENCOUNTER → 2020-03-24 | Outpatient (CLI) | payer MEDICARE, OTHER ==
--- NOTE | 2020-03-24 11:40 | USB ---
Reason for exam: follow-up at short interval from prior study. History: Patient is postmenopausal and had first child at age 39. Family history of breast cancer in sister at age 50. Physical Findings: Nurse did not find any significant physical abnormalities on exam. US Breast Limited BILAT Right limited breast ultrasound including focal area of concern, retroareolar and axilla demonstrates a 0.5 x 0.4 x 0.3cm vascular lymph node at 10 o'clock. Left limited breast ultrasound including focal area of concern, retroareolar and axilla demonstrates hypoechoic normal tissue within dense versus lesion, cannot rule out lesion at 1 o'clock. These results were verbally communicated with the patient and result sheet given to the patient on 03/24/20. ASSESSMENT: Suspicious, BI-RAD 4 RECOMMENDATION: Ultrasound core biopsy of the left breast. Called Dr. Iglesias's office with mammographic findings. Biopsy scheduled for 04/09/20 at 9:30. PRELIMINARY REPORT CALLED AND FAXED TO DR. IGLESIAS ON 03/24/20.
== END | disposition home or self-care (01) ==
LOC: RADUSWWP 10:08
PROVIDERS: ATTEND Internal Medicine Hematology & Oncology
DX: R92.8 Other abnormal and inconclusive findings on diagnostic imaging of breast (principal)

== ENCOUNTER → 2020-03-24 | Outpatient (CLI) | payer MEDICARE, OTHER ==
[2020-03-24 12:11] LABS: African American GFR (CKD) >90 (>60 ml/min/1.73 sqM); Blood Urea Nitrogen 16 mg/dL (7-17); Non-African American GFR(CKD) >90 (>60 ml/min/1.73 sqM)
--- NOTE | 2020-03-24 18:30 | CT ---
EXAMINATION TYPE: CT ChestAbdPelvis w con DATE OF EXAM: 03/24/2020 INDICATION: follow up colon cancer COMPARISON: Thyroid ultrasound 02/12/2020, liver ultrasound 02/12/2020 CT DLP: 736.2 mGycm CONTRAST: Performed with Oral Contrast and with IV Contrast, patient injected with 100 mL of Isovue 300. TECHNIQUE: Axial images at 5 mm thick sections. Reconstructed images in the coronal plane. Delayed images through the kidneys. FINDINGS: CT CHEST: Right lobe thyroid is enlarged and heterogenous. The inferior left lobe thyroid is enlarged. There is a hypodense lesion within the inferior medial left lobe thyroid measuring 1.8 cm. No suspicious lung nodules or focal infiltrates are present. No enlarged mediastinal or hilar adenopathy is evident. The ascending aorta diameter at the level of the main pulmonary artery is 3.5 cm. The main pulmonary artery diameter at the bifurcation is 3.[address] ABDOMEN: Liver: There is a 1.0 cm cyst on the superior right lobe liver measuring 33 Hounsfield unit. This is not a simple cyst. Consider additional evaluation with MRI with contrast. Spleen: Normal Pancreas: Normal Adrenal glands: The adrenal glands are normal. Gallbladder: Normal Kidneys: No masses are evident. No hydronephrosis is present. No cysts are present. Delayed images were obtained through the kidneys, which remain unremarkable. Aorta: Normal Inferior vena cava: Normal. CT PELVIS: Loops of bowel within the abdomen and pelvis are normal. There are loops of bowel which are incom pletely distended or lack oral contrast limiting their evaluation. Appendix: Normal as visualized. Urinary bladder: Normal. Genitourinary structures: Uterus contains calcified fibroids. Adnexal regions are normal. No free flu id is within the pelvis. Osseous structures: No suspicious lytic or sclerotic lesions. Right acetabular subchondral cysts appe ar to be present facet degenerative changes are within the lumbar spine IMPRESSIONS: 1. Nonsimple cyst within the liver. Recommend MRI with contrast for additional evaluation. 2. Large heterogenous thyroid. 3. Subchondral cysts at the right acetabulum present on the comparison 2019 plain film.
== END | disposition home or self-care (01) ==
LOC: RADCTMAIN 09:58
PROVIDERS: ATTEND Internal Medicine Hematology & Oncology
DX: C18.7 Malignant neoplasm of sigmoid colon (principal); K76.89 Other specified diseases of liver; R92.8 Other abnormal and inconclusive findings on diagnostic imaging of breast
CPT/HCPCS: 82565; 84520; 71260; 74177; 36415; Q9967

== ENCOUNTER → 2020-04-09 | Day surgery (SDC) | payer MEDICARE, OTHER ==
[2020-04-09 09:29] VITALS: RESP 16; TEMP 98.3
--- NOTE | 2020-04-09 11:15 | USB ---
EXAMINATION TYPE: US breast needle core LT DATE OF EXAM: 04/09/2020 CLINICAL HISTORY: R92.8 Abnormal mammogram. TECHNIQUE: Ultrasound guided core biopsy of left breast. COMPARISON: 03/24/2020 FINDINGS: The procedure of ultrasound guided core biopsy was explained to the patient. Benefits, alternatives, and risks were discussed. An informed consent was then obtained. The patient was placed in supine positioning for imaging and for the procedure. The overlying skin was prepped and draped in usual sterile fashion. Lidocaine buffered with bicarbonate was used as anesthetic into the skin and subcutaneous tissue up to area of concern in the left breast. A mason was made with surgical scalpel. Under ultrasound guidance, a 12-gauge vacuum assisted biopsy gun device was used to obtain 5 core samples. Following this, a biopsy clip was left in lesion. Postprocedural mammogram demonstrated the clip to be in ideal position. The patient tolerated the procedure well without any immediate complication. The patient was kept in the radiology department for short stay after the procedure and then discharged home in stable condition. IMPRESSION: Successful, uncomplicated ultrasound guided core biopsy of area of concern in the left breast, full pathology results to follow. Pathology Results: Benign LEFT BREAST LESION AT ONE O'CLOCK POSITION, BIOPSY: Benign breast parenchyma with fibrocystic changes. Recommendation Follow up ultrasound of the left breast in 6 months. KAITLYN
--- NOTE | 2020-04-09 11:24 | MM ---
Reason for exam: additional evaluation requested from abnormal screening. Last mammogram was performed 7 months ago. History: Patient is postmenopausal and had first child at age 39. Family history of breast cancer in sister at age 50. MG Diagnostic Mammo LT Wo CAD CC and MLO view(s) were taken of the left breast. Prior study comparison: September 13, 2019, bilateral MG 3d diag mammo w/cad LELSYE. May 30, 2008, bilateral digital screening mammogram. ASSESSMENT: Post procedure mammogram for marker placement RECOMMENDATION: Ultrasound of the left breast in 6 months. PENDING PATHOLOGY RESULTS.
[2020-04-09 11:25] VITALS: BP 144/95; PULSE 99
== END ==
LOC: RADUSWWP 09:09
PROVIDERS: ATTEND Internal Medicine Hematology & Oncology
DX: N60.12 Diffuse cystic mastopathy of left breast (principal); Z78.0 Asymptomatic menopausal state; Z80.3 Family history of malignant neoplasm of breast
CPT/HCPCS: 88305; 77065; 19083; A4648; J2001

== ENCOUNTER → 2020-06-30 | Outpatient (CLI) | payer MEDICARE, OTHER ==
--- NOTE | 2020-06-30 12:21 | CT ---
EXAMINATION TYPE: CT ChestAbdPelvis w con DATE OF EXAM: 06/30/2020 COMPARISON: 03/24/2020 HISTORY: 69-year-old female C18.7 colon CA TECHNIQUE: Contiguous axial scanning of the chest, abdomen, and pelvis performed with IV Contrast, pa tient injected with 100 mL of Isovue 300. Delayed images through the kidneys were obtained. Coronal/s agittal reconstructions performed. CT DLP: 886.5 mGycm Automated exposure control for dose reduction was used. FINDINGS: CHEST: The heart is normal size without pericardial effusion. Aorta normal caliber with conventional arch vessel branching anatomy. Enlarged thyroid gland with underlying nodules measuring up to 2.4 cm. The thyroid gland is incomplet adrian visualized. Dedicated ultrasound evaluation recommended. Right anterior chest wall injection port with catheter tip at the cavoatrial junction. No thoracic lymphadenopathy by CT size criteria. Mild centrilobular emphysema. Some stranding scarring or atelectasis in the lower lungs. No pleural e ffusion or consolidation. ABDOMEN: Tiny hiatal hernia. 1.3 cm oval hypodensity left liver lobe remains unchanged for 3 months and is too small for accurate CT characterization, probable cyst. No other focal liver lesion. No biliary ductal dilatation. Portal venous system is patent. Gallbladder, adrenal glands, right kidney with an extrarenal pelvis, spleen, and atrophic pancreas sh ow no gross abnormality. There is an indeterminate 1.2 cm cortical lesion medial mid pole left kidney, axial image 34, better seen on the delayed kidney images. This may be minimally larger as compared to 1 cm on 03/24/2020. No dilated small bowel, free fluid, or free air. Lobulated soft tissue density right lower quadrant mesentery measuring 5.3 cm craniocaudal by 4.2 cm wide by 2.5 cm AP (refer to the coronal images 35 and 36 and axial image 91). No mesenteric or retroperitoneal lymphadenopathy is otherwise seen. Normal appendix. Oral contrast progressed to the splenic flexure. Mild overall stool burden. There is staple line at the rectosigmoid junction from prior resection and re-anastomosis. PELVIS: Bladder is distended. Uterus anteverted with small calcified fibroids measuring up to 1.0 cm within. Left ovary is visualized. Right ovary not clearly delineated from adjacent bowel loops. No abnormal f luid collection in the pelvis or pelvic lymphadenopathy. BONES: Moderate degenerative changes right hip and mild at the left hip. Hypertrophic facet arthropathy mid to lower lumbar spine with grade 1 anterolisthesis L4-L5. Moderate to advanced degenerative disc dise ase L5-S1. Additional moderate to advanced degenerative disc disease mid to lower thoracic spine. No osseous destructive process. IMPRESSION: 1. PRIOR RESECTION AND REANASTOMOSIS AT THE RECTOSIGMOID JUNCTION. 2. LOBULATED SOFT TISSUE DENSITY IN THE RIGHT LOWER QUADRANT MEASURING 5.3 X 4.2 X 2.5 CM. THE ETIOLO GY IS UNCLEAR AT THIS TIME. SOME DIFFERENTIAL CONSIDERATIONS INCLUDE CLUMPED UP VARICES OF THE RIGHT GONADAL VEIN AND UNDERLYING MESENTERIC LYMPHADENOPATHY. CORRELATE WITH TUMOR MARKERS. COMPARISON TO A [place] OLDER OUTSIDE PRIORS SHOULD BE CONSIDERED. ALSO, CONSIDERATION CAN BE GIVEN TO CONTRAST-ENHANCED P ELVIC MRI. THE FIELD OF VIEW SHOULD BE INCREASED TO INCLUDE THIS AREA. 3. INDETERMINATE 1.2 CM CORTICAL LESION MEDIAL LEFT KIDNEY MAY BE MINIMALLY LARGER COMPARED TO 1 C M ON 03/24/2020. IT IS TOO SMALL FOR ACCURATE CT CHARACTERIZATION. CLOSE ATTENTION ON FOLLOW-UP A SM ALL SOLID MASS/RCC IS NOT EXCLUDED AT THIS TIME. A COMPLICATED CYST WOULD BE THE ALTERNATIVE CONSIDER ATION. 4. THYROMEGALY WITH MULTIPLE NODULES MEASURING UP TO 2.4 CM. ULTRASOUND FOLLOW-UP INDICATED. 5. STABLE 1.3 CM LESION LEFT LIVER LOBE FOR 3 MONTHS, LIKELY A BENIGN CYST.
== END | disposition home or self-care (01) ==
LOC: RADCTMAIN 09:00
PROVIDERS: ATTEND Internal Medicine Hematology & Oncology
DX: K76.89 Other specified diseases of liver (principal); N28.9 Disorder of kidney and ureter, unspecified; M79.89 Other specified soft tissue disorders; C18.7 Malignant neoplasm of sigmoid colon
CPT/HCPCS: 82565; 84520; 71260; 74177; 36415; Q9967

== ENCOUNTER → 2020-07-24 | Outpatient (CLI) | payer MEDICARE, OTHER | END | disposition home or self-care (01) | LOC: LABWHC1 09:31 | PROVIDERS: ATTEND Student in an Organized Health Care Education/Training Program | DX: U07.1 COVID-19 (principal) | CPT/HCPCS: U0003; C9803 ==

== ENCOUNTER 2020-07-31 13:21 | Day surgery (SDC) | payer MEDICARE, OTHER ==
[2020-07-29 14:13] VITALS: BMI 27.4
[~2020-07-31 13:21] MED LIST changes: -ALVIMOPAN 12 MG CAPSULE PO ONE; -DEXAMETHASONE SOD PHOSPHATE 10 MG/ML 1 ML VIAL IV ONE; -HEPARIN SODIUM,PORCINE 5,000 UNIT/ML 1 ML VIAL SQ ONE; -HYDROmorphone 0.5 MG/0.5 ML SYRINGE IVP PRN; -MIDAZOLAM 2 MG/2 ML VIAL IV PRN; -ONDANSETRON 4 MG/2 ML VIAL IVP ONE; -metroNIDAZOLE-NS PMX 500 MG in SALINE 1 100ML.BAG IVPB ONE
[2020-07-31 13:35] VITALS: TEMP 97.8
[2020-07-31] MEDS ORDERED: LIDOCAINE 1% (10MG/ML) FOR IV START INTRADERMA ONE (13:35)
[2020-07-31] MEDS ORDERED: LACTATED RINGERS 1,000 ML IV ONE (13:35)
[2020-07-31] MEDS ORDERED: PROPOFOL 10 MG/ML 20 ML VIAL IV ONE (17:21)
[2020-07-31] MEDS ORDERED: LIDOCAINE 1% INJ 10MG/ML (20 ML MDV) ONE (17:21)
[2020-07-31 17:46] VITALS: RESP 16
[2020-07-31 18:05] VITALS: BP 126/84; PULSE 90
--- NOTE | 2020-07-31 19:32 | P.OP ---
Date of Procedure: 07/31/20 Preoperative Diagnosis: history of colon cancer Postoperative Diagnosis: transverse colon polyp Procedure(s) Performed: colonoscopy with hot snare polypectomy Anesthesia: MAC Surgeon: Peewee Rodriguez Estimated Blood Loss (ml): 0 Condition: stable Description of Procedure: Patient brought to endo placed in left later decub rectal exam performed no gross abdnormalities noted, scope passed from rectum to cecum with ease, slowly withdrawn visualizing all escobar of colon. Small pedunculated polyp in the transverse colon was removed via hot snare polypectomy. No other abdnormalities seen. Patients anastamotic site was patent with no sign of recurrence. Repeat colonoscopy in 1 year due to history of cancer Plan - Discharge Summary Discharge Rx Participant: No New Discharge Prescriptions: No Action Levothyroxine Sodium [Synthroid] 50 mcg PO Q48H Multivitamins, Thera [Multivitamin (formulary)] 1 tab PO DAILY Metoprolol Succinate (ER) [Toprol Xl] 50 mg PO DAILY Apixaban [Eliquis] 5 mg PO BID Discharge Medication List Levothyroxine Sodium [Synthroid] 50 mcg PO Q48H 03/25/20 [History] Apixaban [Eliquis] 5 mg PO BID 07/29/20 [History] Metoprolol Succinate (ER) [Toprol Xl] 50 mg PO DAILY 07/29/20 [History] Multivitamins, Thera [Multivitamin (formulary)] 1 tab PO DAILY 07/29/20 [History] Follow up Appointment(s)/Referral(s): Peewee Rodriguez, [Doctor of Osteopathic Medicine] - As Needed Patient Instructions/Handouts: *Surgery [facility] - (Anesthesia) Endoscopy Discharge Instructions, Colorectal Polyps (DC), Colonoscopy (DC) Discharge Disposition: HOME SELF-CARE
== END 2020-07-31 18:17 | disposition home or self-care (01) ==
LOC: ORWHC2ENDO 13:21
PROVIDERS: ATTEND Student in an Organized Health Care Education/Training Program
DX: Z12.11 Encounter for screening for malignant neoplasm of colon (principal); D12.3 Benign neoplasm of transverse colon; Z85.038 Personal history of other malignant neoplasm of large intestine; Z80.3 Family history of malignant neoplasm of breast; K21.9 Gastro-esophageal reflux disease without esophagitis; I10 Essential (primary) hypertension; E05.90 Thyrotoxicosis, unspecified without thyrotoxic crisis or storm; Z80.0 Family history of malignant neoplasm of digestive organs; Z80.7 Family history of other malignant neoplasms of lymphoid, hematopoietic and related tissues; Z80.9 Family history of malignant neoplasm, unspecified; Z98.890 Other specified postprocedural states; Z90.49 Acquired absence of other specified parts of digestive tract; Z79.890 Hormone replacement therapy; Z79.899 Other long term (current) drug therapy; Z79.01 Long term (current) use of anticoagulants
CPT/HCPCS: 45385; 88305; J2001; J2704

== ENCOUNTER → 2020-09-29 | Outpatient (CLI) | payer MEDICARE, OTHER ==
[2020-09-29 09:55] LABS: African American GFR (CKD) >90 (>60 ml/min/1.73 sqM); Blood Urea Nitrogen 22 mg/dL (7-17); Non-African American GFR(CKD) 82 (>60 ml/min/1.73 sqM)
--- NOTE | 2020-09-29 13:33 | CT ---
EXAMINATION TYPE: CT ChestAbdPelvis w con DATE OF EXAM: 09/29/2020 COMPARISON: CT 06/30/2020 HISTORY: colon CA, observation for mets CT DLP: 1065 mGycm Automated exposure control for dose reduction was used. CONTRAST: CT scan of the chest, abdomen and pelvis is performed with Oral Contrast and with IV Contrast, patien t injected with 100 mL of Isovue 300. FINDINGS: Umbilical hernia contains fat. LUNGS: The lungs are grossly clear, there is no concerning parenchymal mass or nodule identified. T here is no pleural effusion or pneumothorax seen. The tracheobronchial tree is patent. MEDIASTINUM: There are no greater than 1 cm hilar or mediastinal lymph nodes. No pericardial effusi on is seen. AORTA: No significant abnormality is seen. OTHER: Thyroid gland shows low dense nodules bilaterally. There is a port in the right pectoral carlos on and coursing via a internal jugular approach, tip of the catheter is not seen. LIVER/GB: No significant interval change is appreciated, hypodensity in the left lobe is unchanged. PANCREAS: No significant interval change is seen. SPLEEN: No significant abnormality is seen. ADRENALS: No significant abnormality is seen. KIDNEYS: No significant abnormality is seen. REPRODUCTIVE ORGANS: No interval change seen. BOWEL: Postop changes are noted in the sigmoid colon, appendix is filling with contrast and is unrem arkable. There is abnormal soft tissue seen associated with the bowel wall, coronal image 37, axial i mage 67. FREE AIR: No Free Air visible. ASCITES: None seen. RETROPERITONEAL ADENOPATHY: No retroperitoneal adenopathy is seen. LYMPH NODES: No greater than 1 cm abdominal or pelvic lymph nodes are appreciated. URINARY BLADDER: No significant abnormality is seen. PELVIC ADENOPATHY: Abnormal soft tissue along the right common iliac artery and vein measures approx imately 5.2cm in greatest transverse dimension 3.3 cm in AP dimension by 4.9 cm and cephalad to cauda l dimension which is increased from 3.5 x 2.8 cm on prior exam. OSSEOUS STRUCTURES: No significant interval change is seen, there is a spinal curvature and degenera tive disc disease, osteoarthritic changes present within the hips. IMPRESSION: Interval growth of right lower quadrant soft tissue mass may represent adenopathy. Postop changes. Indeterminate soft tissue density associated with the bowel in the left upper quadrant.
== END | disposition home or self-care (01) ==
LOC: RADCTMAIN 09:05
PROVIDERS: ATTEND Internal Medicine Hematology & Oncology
DX: M79.89 Other specified soft tissue disorders (principal); C18.7 Malignant neoplasm of sigmoid colon
CPT/HCPCS: 82565; 84520; 71260; 74177; 36415; Q9967

== ENCOUNTER → 2020-12-04 | Outpatient (CLI) | payer MEDICARE, OTHER ==
--- NOTE | 2020-12-07 10:13 | PE ---
EXAMINATION TYPE: PET CT fusion skull to thigh DATE OF EXAM: 12/04/2020 COMPARISON: Most recent CT September 29, 2020 and older CTs HISTORY: Colon cancer diagnosed 2019 with surgery July 2019 after chemotherapy 2018. TECHNIQUE: Following the intravenous administration of 11.24 mCi of F-18 FDG, whole body images are performed from the skull base to the midthigh. Images are reviewed on the computer in the coronal, a xial, and sagittal planes. Reconstructed rotating images are created on independent workstation and reviewed on the computer. A localization and attenuation correction CT is performed in conjunction with the PET scan. Blood glucose level equals 110. SCAN: Subsequent Scan FINDINGS: SKULL BASE AND NECK: Persistent suspicious right thyroid nodule measuring 2.5 x 2.2 cm axial image 6 2 has abnormal hypermetabolic uptake, max SUV is 5.28. The similar size slightly lower left thyroid n odule does not show suspicious hypermetabolic uptake. Advise sampling of the right sided hypermetabol ic nodule. No additional areas of abnormal hypermetabolic uptake. CHEST, MEDIASTINUM, AND HILAR REGION: No areas of abnormal hypermetabolic uptake. ABDOMEN AND PELVIS: Stable 1.1 cm low dense lesion left hepatic lobe axial image 135 is ametabolic. Persistent postsurgical changes at level of sigmoid colon near image 207, no suspicious new soft tiss ue nodule or abnormal hypermetabolic uptake at this level. Persistent low dense tissue anterior to ri ght common iliac vessels measuring 3.8 x 2.1 cm axial image 189 is ametabolic favor fluid etiology or thin-walled cyst. Normal excretion in the bladder. No areas of suspicious hypermetabolic uptake. OSSEOUS STRUCTURES: No areas of abnormal hypermetabolic uptake. OTHER CT: Stable right internal jugular Mediport catheter. Persistent cardiomegaly. Persistent enlarg ed main and right pulmonary artery, CT finding consistent with underlying pulmonary artery hypertensi on. There is nonobstructing 2 to 3 mm stone right kidney axial image 153. Anteverted uterus with small ca lcified fibroids. Scoliotic curvature centered in the lumbar spine. Exaggerated curvature on sagittal images. Slight gr leo 1 anterolisthesis L4 on L5. IMPRESSION: No suspicious local recurrent or new metastatic disease. Dominant right thyroid nodule is suspicious given abnormal hypermetabolic uptake, sampling advised to rule out primary thyroid neopla sm.
== END | disposition home or self-care (01) ==
LOC: RADPETMAIN 09:12
PROVIDERS: ATTEND Internal Medicine Hematology & Oncology
DX: C18.7 Malignant neoplasm of sigmoid colon (principal); E04.1 Nontoxic single thyroid nodule; Z85.038 Personal history of other malignant neoplasm of large intestine
CPT/HCPCS: 78815; A9552

== ENCOUNTER → 2020-12-29 | Outpatient (CLI) | payer MEDICARE, OTHER ==
--- NOTE | 2020-12-29 10:07 | MM ---
Reason for exam: additional evaluation requested from prior study. Last mammogram was performed 9 months ago. History: Patient is postmenopausal and had first child at age 39. Family history of breast cancer in sister at age 50. Benign US breast needle core LT of the left breast, April 09, 2020. Physical Findings: Nurse did not find any significant physical abnormalities on exam. MG 3D Diag Mammo W/Cad LESLYE Bilateral CC and MLO view(s) were taken. Prior study comparison: April 09, 2020, left breast MG diagnostic mammo LT wo CAD. September 13, 2019, bilateral MG 3d diag mammo w/cad LESLYE. The breast tissue is heterogeneously dense. This may lower the sensitivity of mammography. Benign appearing bilateral calcifications. There is chronic nodularity in the right breast. No significant new findings when compared with previous films. These results were verbally communicated with the patient and result sheet given to the patient on 12/29/20. ASSESSMENT: Benign, BI-RAD 2 RECOMMENDATION: Routine screening mammogram of both breasts in 1 year.
== END | disposition home or self-care (01) ==
LOC: RADMAMWWP 08:55
PROVIDERS: ATTEND Student in an Organized Health Care Education/Training Program
DX: R92.1 Mammographic calcification found on diagnostic imaging of breast (principal); R92.8 Other abnormal and inconclusive findings on diagnostic imaging of breast; Z78.0 Asymptomatic menopausal state; Z80.3 Family history of malignant neoplasm of breast
CPT/HCPCS: 77066; G0279; 77062

== ENCOUNTER → 2021-03-12 | Outpatient (CLI) | payer MEDICARE, OTHER ==
[2021-03-12 10:13] LABS: African American GFR (CKD) >90 (>60 ml/min/1.73 sqM); Blood Urea Nitrogen 21 mg/dL (7-17); Non-African American GFR(CKD) 88 (>60 ml/min/1.73 sqM)
--- NOTE | 2021-03-12 13:28 | CT ---
EXAMINATION TYPE: CT abdomen pelvis wo/w con DATE OF EXAM: 03/12/2021 COMPARISON: PET/CT 12/04/2020 INDICATION: follow up colon cancer DLP: 1660 mGycm, Automated exposure control for dose reduction was used. CONTRAST: 100 mL of Isovue 300. Study performed with Oral Contrast TECHNIQUE: Axial images were obtained from above the diaphragm to the pubic rami in the axial plane a t 5 mm thick sections. Reconstructed images are reviewed on the computer in the coronal plane. FINDINGS: Limited CT sections are obtained the lung bases. The lung bases are clear. CT ABDOMEN: Liver: Normal Spleen: Normal Pancreas: Atrophic Adrenal glands: The adrenal glands are normal. Gallbladder: Normal Kidneys: No masses are evident. No hydronephrosis is present. No cysts are present. Delayed images were obtained through the kidneys, which remain unremarkable. There is a 0.3 cm mid right posterior renal stone without obstruction. Aorta: Vascular calcification is within the aorta. Inferior vena cava: Normal. CT PELVIS: Anterior abdominal wall hernia in the infraumbilical region is present containing mesenter ic fat. No loops of bowel appear to be directly involved although a loop of small bowel may be at the opening. Loops of bowel within the abdomen and pelvis are normal. No suspicious postsurgical changes or recur rent masses are evident. There are loops of bowel which are incompletely distended or lack oral con trast limiting their evaluation. Appendix: Normal as visualized. Urinary bladder: Normal. Genitourinary structures: Uterus is within the right hemipelvis. Uterus contains calcifications which could be calcified fibroids. Adnexa appear normal. Osseous structures: No suspicious lytic or sclerotic lesions. Degenerative changes at the bilateral h ips. Some degenerative disc changes within the lumbar spine. Lumbar spine is scoliotic with convexity to the left. IMPRESSIONS: 1. No suspicious changes suggest recurrent or metastatic colon cancer. 2. Nonobstructing right renal stone. 3. Fat-containing anterior abdominal wall hernia
== END | disposition home or self-care (01) ==
LOC: RADCTMAIN 09:29
PROVIDERS: ATTEND Internal Medicine Hematology & Oncology
DX: C18.9 Malignant neoplasm of colon, unspecified (principal); N20.0 Calculus of kidney; K43.9 Ventral hernia without obstruction or gangrene
CPT/HCPCS: 82565; 84520; 74178; 36415; Q9967

== ENCOUNTER 2021-07-23 08:26 | Day surgery (SDC) | payer MEDICARE, OTHER ==
[2021-07-21 10:51] VITALS: BMI 29.8
[2021-07-23 09:07] VITALS: TEMP 97.6
[2021-07-23] MEDS ORDERED: PROPOFOL 10 MG/ML 20 ML VIAL IV ONE (09:59)
[2021-07-23] MEDS ORDERED: LACTATED RINGERS 700 ML IV ONE (10:20)
[2021-07-23] MEDS ORDERED: IV FLUID CONTINUATION 700 ML IV ONE (10:20)
--- NOTE | 2021-07-23 10:20 | P.OP ---
Date of Procedure: 07/23/21 Preoperative Diagnosis: History of colorectal cancer Postoperative Diagnosis: Polyp in cecum Procedure(s) Performed: Colonoscopy with hot snare polypectomy Anesthesia: MAC Surgeon: Peewee Rodriguez Estimated Blood Loss (ml): 1 Condition: stable Disposition: same day Description of Procedure: Patient is brought operative suite placed in the left lateral venous position underwent sedation per department of anesthesia timeout performed correct patient correct procedure correct site was verified rectal exam was performed no gross abnormalities are noted scope was passed from the rectum to the cecum with ease and the cecum there was a polyp noted right at the appendiceal orifice this was removed via hot snare polypectomy. Hemostasis was noted the scope was then slowly withdrawn being sure to visualize all escobar of the colon on the way out no other gross abnormalities were noted the anastomosis and the rectum was widely patent with no signs of recurrence. Patient tolerated repeat colonoscopy in one year Plan - Discharge Summary Discharge Rx Participant: No New Discharge Prescriptions: No Action Multivitamins, Thera [Multivitamin (formulary)] 1 tab PO DAILY Metoprolol Succinate (ER) [Toprol Xl] 50 mg PO QAM Apixaban [Eliquis] 5 mg PO BID methIMAzole [Tapazole] 5 mg PO Q2D Discharge Medication List Apixaban [Eliquis] 5 mg PO BID 07/29/20 [History] Metoprolol Succinate (ER) [Toprol Xl] 50 mg PO QAM 07/29/20 [History] Multivitamins, Thera [Multivitamin (formulary)] 1 tab PO DAILY 07/29/20 [History] methIMAzole [Tapazole] 5 mg PO Q2D 07/21/21 [History]
[2021-07-23 10:24] VITALS: BP 109/75
[2021-07-23 10:37] VITALS: PULSE 91; RESP 16
== END 2021-07-23 10:50 | disposition home or self-care (01) ==
LOC: ORWHC2ENDO 08:26
PROVIDERS: ATTEND Student in an Organized Health Care Education/Training Program
DX: D12.0 Benign neoplasm of cecum (principal); Z85.038 Personal history of other malignant neoplasm of large intestine
CPT/HCPCS: 45385; 88305; J2704

== ENCOUNTER → 2021-08-19 | Outpatient (CLI) | payer MEDICARE, OTHER ==
[2021-08-19 11:06] LABS: African American GFR (CKD) >90 (>60 ml/min/1.73 sqM); Blood Urea Nitrogen 18 mg/dL (7-17); Non-African American GFR(CKD) 85 (>60 ml/min/1.73 sqM)
--- NOTE | 2021-08-19 13:07 | CT ---
EXAMINATION TYPE: CT ChestAbdPelvis w con DATE OF EXAM: 08/19/2021 COMPARISON: None HISTORY: Colon cancer. CT DLP: 1785 mGycm CONTRAST: CT scan of the chest, abdomen and pelvis is performed with Oral Contrast and with IV Contrast, patien t injected with 100 mL of Isovue M300. CT Chest: LUNGS: The lungs are clear and free of infiltrate or atelectasis. No pulmonary nodule or mass is det ected. No pleural effusion or CT evidence of interstitial lung disease. MEDIASTINUM: Thyroid nodularity noted. Correlate with ultrasound. Thoracic aorta is of normal caliber . The heart is not enlarged. No evidence for mediastinal mass or adenopathy. HILAR STRUCTURES: No evidence for mass. No hilar adenopathy is appreciated. OTHER: No significant abnormality. CONTRAST CT ABDOMEN AND PELVIS FINDINGS: LIVER/GB: No calcified gallstones. No space occupying hepatic lesion. Biliary tree is of normal ca liber. PANCREAS: No inflammation. No distinct mass. SPLEEN: No splenic enlargement. No lesion seen. ADRENALS: No nodule. No thickening. KIDNEYS/BLADDER: No hydronephrosis. No nephrolithiasis. No distinct renal mass. BOWEL: Normal appendix. Normal bowel caliber. No inflammation. GENITAL ORGANS: Calcified uterine leiomyomas. LYMPH NODES: No greater than 1cm abdominal or pelvic lymph nodes are appreciated. AORTA: No significant abnormality. OSSEOUS STRUCTURES: No significant abnormality is seen. OTHER: Fat-containing infraumbilical hernia. IMPRESSION: 1. No evidence for metastatic disease or recurrent disease.
== END | disposition home or self-care (01) ==
LOC: RADCTMAIN 10:13
PROVIDERS: ATTEND Internal Medicine Hematology & Oncology
DX: C18.9 Malignant neoplasm of colon, unspecified (principal)
CPT/HCPCS: 82565; 84520; 71260; 74177; 36415; Q9967 ×2

== ENCOUNTER → 2022-01-04 | Outpatient (CLI) | payer MEDICARE, OTHER ==
--- NOTE | 2022-01-04 18:54 | CT ---
EXAMINATION TYPE: CT ChestAbdPelvis w con DATE OF EXAM: 01/04/2022 INDICATION: Malignant neoplasm of sigmoid colon, obs for other suspected COMPARISON: 08/19/2021 CT DLP: 1858 mGycm CONTRAST: Performed with Oral Contrast and with IV Contrast, patient injected with 100 ml mL of Isovue 370. TECHNIQUE: Axial images at 5 mm thick sections. Reconstructed images in the coronal plane. Delayed images through the kidneys. FINDINGS: CT CHEST: The thyroid is enlarged and heterogenous. There appear be several hypodense masses within t he thyroid. Thyroid extends in the superior mediastinum. Correlate for goiter. No suspicious lung nodules or focal infiltrates are present. No enlarged mediastinal or hilar adenopathy is evident. The ascending aorta diameter at the level of the main pulmonary artery is 3.6 cm. The main pulmonary artery diameter at the bifurcation is 3.[address] ABDOMEN: There is an anterior abdominal wall hernia with an opening of 5.1 cm in the periumbilical region. No loops of bowel are involved. There is close approximation with a loop of colon without ev idence of entrapment. Liver: There is mild fatty infiltration of the liver. Spleen: Normal Pancreas: Normal Adrenal glands: The adrenal glands are normal. Gallbladder: Normal Kidneys: No masses are evident. No hydronephrosis is present. No cysts are present. Delayed images were obtained through the kidneys, which remain unremarkable. Aorta: Normal Inferior vena cava: Normal. CT PELVIS: Loops of bowel visualized unremarkable. No recurrent sigmoid masses are evident. Postsurgical changes are within the sigmoid colon. There are loops of bowel which are incompletely distended or lack oral contrast limiting their evaluation. Appendix: Normal as visualized. Urinary bladder: Decompressed with limited evaluation Genitourinary structures: Uterus contains calcification. Underlying fibroids likely present.. Adnexa are unremarkable. Osseous structures: No suspicious lytic or sclerotic lesions. There appears to be a cyst within the p osterior right femoral head within the acetabulum. Correlate for degenerative changes. Degenerative disc changes are within the lumbar spine. Facet degenerative changes are within the lumb ar spine. Some degenerative disc changes are within the thoracic region. Grade 1 spondylolisthesis of L4 internal 5 is present. Mild wedge deformity of T11 is present. These findings appear stable from comparison of 2020. IMPRESSIONS: 1. No suspicious changes to suggest recurrent or metastatic colon cancer. 2. Enlarged heterogenous thyroid present previously. Correlate for goiter
== END | disposition home or self-care (01) ==
LOC: RADCTMAIN 09:24
PROVIDERS: ATTEND Internal Medicine Hematology & Oncology
DX: C18.7 Malignant neoplasm of sigmoid colon (principal); E04.9 Nontoxic goiter, unspecified
CPT/HCPCS: 82565; 84520; 71260; 74177; 36415; Q9967

== ENCOUNTER → 2022-07-05 | Outpatient (CLI) | payer MEDICARE, OTHER ==
[2022-07-05 10:53] LABS: African American GFR (CKD) >90 (>60 ml/min/1.73 sqM); Blood Urea Nitrogen 21 mg/dL (7-17); Non-African American GFR(CKD) 79 (>60 ml/min/1.73 sqM)
--- NOTE | 2022-07-05 12:50 | CT ---
EXAMINATION TYPE: CT ChestAbdPelvis w con DATE OF EXAM: 07/05/2022 COMPARISON: Most recent CT January 04, 2022 and older studies. HISTORY: colon ca CT DLP: 1266.7 mGycm. Automated Exposure Control for Dose Reduction was Utilized. CONTRAST: CT scan of the thorax, abdomen and pelvis is performed with IV Contrast, patient injected with 70 mL of Isovue 300. FINDINGS: LUNGS: Mild linear scarring in both bases redemonstrated. No suspicious greater than 5 mm pulmonary n odules or masses. There is no pleural effusion or pneumothorax seen. The tracheobronchial tree is patent. MEDIASTINUM: There are no greater than 1 cm hilar or mediastinal lymph nodes. No pericardial effusi on is seen. Stable mild cardiomegaly. Stable mild to moderate biatrial dilatation. OTHER: Stable right internal jugular Mediport catheter. Stable heterogeneous enlarged thyroid with mu ltiple hypodense and calcified nodules. LIVER/GB: Stable 1.3 cm thin-walled cyst left hepatic lobe axial image 52. PANCREAS: Mild fat replaced atrophy distal body and tail redemonstrated. SPLEEN: No significant abnormality is seen. ADRENALS: No significant abnormality is seen. KIDNEYS: No significant abnormality is seen. BOWEL: Oral contrast reaches level of the rectum. No suspicious small or large bowel dilatation. Norm al contrast-filled appendix ascends from the posterior aspect of the cecum. GENITAL ORGANS: Anteverted uterus extends to right of midline similar to prior with scattered calcifi ed fibroids redemonstrated. Stable oval low dense structure superior to this likely reflecting slight ly prominent right ovary measuring 3.4 x 2.2 cm is unchanged from several prior CTs. LYMPH NODES: No new greater than 1cm abdominal or pelvic lymph nodes are appreciated. OSSEOUS STRUCTURES: Slight scoliotic curvature with multilevel spurring throughout the thoracolumbar spine is redemonstrated grade 1 anterolisthesis L4 on L5 redemonstrated. Moderate disc space narrowin g L5-S1 level redemonstrated. Multilevel facet arthropathy in the lumbar spine is seen. OTHER: Focal eventration or ventral wall hernia containing fat and nondilated bowel in the midline up per pelvis axial image 91 redemonstrated. Additional eventration or hernia defect superior to this in the midline again seen. IMPRESSION: No suspicious new mass or adenopathy to suggest recurrent active neoplasm. No significan t change from prior CTs.
== END | disposition home or self-care (01) ==
LOC: RADCTMAIN 10:01
PROVIDERS: ATTEND Internal Medicine Hematology & Oncology
DX: C18.7 Malignant neoplasm of sigmoid colon (principal)
CPT/HCPCS: 82565; 84520; 71260; 74177; 36415; Q9967

== ENCOUNTER → 2022-07-26 | Outpatient (CLI) | payer MEDICARE, OTHER ==
--- NOTE | 2022-07-26 09:27 | BD ---
EXAMINATION TYPE: Axial Bone Density DATE OF EXAM: 07/26/2022 COMPARISON: NONE CLINICAL HISTORY: 71 years year old Female. ICD-10 CODE: M810 OSTEOPOROSIS Height: 5'4 Weight: 185 FRAX RISK QUESTIONS: Secondary Osteoporosis: RISK FACTORS HISTORY OF: Postmenopausal woman: y MEDICATIONS: Thyroid Medications: Which medication: unsure name How Lon-3 years Additional Medications: eliquis,metoprolol,methimazole,duloxetine Additional History: colon cancer, 2019, chemotherapy EXAM MEASUREMENTS: Bone mineral densitometry was performed using the [employer]. Bone mineral density as measured about the Lumbar spine is: ----- L1-L4(G/cm2): 1.114 T Score Values are as follows: ----- L1: -0.9 ----- L2: -1.3 ----- L3: -1.0 ----- L4: 0.5 ----- L1-L4:-0.6 Bone mineral density about the R hip (g/cm2): 0.779 Bone mineral density about the L hip (g/cm2): 0.846 T Score values are as follows: -----R Neck: -1.9 -----L Neck: -1.4 -----R Total: -1.4 -----L Total: -1.3 FRAX%s: The graph provided illustrates a 11.6% chance for a major osteoporotic fx and a2.5% chance fo r the hips probability for fx in 10 years time. IMPRESSION: Osteopenia (T Score between -2.5 and -1). There is slightly increased risk of fracture and the patient may be considered for treatment. Re-Screen 2-5 years. NOTE: T-SCORE=SD OF THE YOUNG ADULT MEAN.
--- NOTE | 2022-07-27 09:13 | MM ---
Reason for Exam: Screening (asymptomatic). Last mammogram was performed 1 year(s) and 7 month(s) ago. Patient History: Menarche at age 12. First Full-Term at age 39. Late child-bearing (after 30). Postmenopausal. 04/09/2020, Benign Core Biopsy on the left side. Sister had breast cancer, age 50. Sister had breast cancer. Risk Values: Esme 5 year model risk: 5.6%. NCI Lifetime model risk: 13.2%. Prior Study Comparison: 09/13/2019 Bilateral Diagnostic Mammogram, [facility]. 04/09/2020 Left Diagnostic Mammogram, [facility]. 12/29/2020 Bilateral Diagnostic Mammogram, [facility]. Tissue Density: The breast tissue is heterogeneously dense. This may lower the sensitivity of mammography. Findings: Analyzed By CAD. Right chest wall [id number], left breast biopsy clip. There is no suspicious group of microcalcifications or new suspicious mass in either breast. Overall Assessment: Negative, BI-RAD 1 Management: Screening Mammogram of both breasts in 1 year. A clinical breast exam by your physician is recommended on an annual basis and results should be correlated with mammographic findings. [facility] will attempt to contact patient to return for supplemental views and ultrasound if indicated. Electronically signed and approved by: Osei Villarreal DO
== END | disposition home or self-care (01) ==
LOC: RADMAMWWP 08:31
PROVIDERS: ATTEND Internal Medicine Geriatric Medicine
DX: Z12.31 Encounter for screening mammogram for malignant neoplasm of breast (principal); M85.89 Other specified disorders of bone density and structure, multiple sites; M81.0 Age-related osteoporosis without current pathological fracture; Z78.0 Asymptomatic menopausal state; Z80.3 Family history of malignant neoplasm of breast
CPT/HCPCS: 77063; 77067; 77080

== ENCOUNTER → 2023-01-10 | Outpatient (CLI) | payer MEDICARE, OTHER ==
[2023-01-10 10:49] LABS: African American GFR (CKD) >90 (>60 ml/min/1.73 sqM); Blood Urea Nitrogen 20 mg/dL (7-17); Non-African American GFR(CKD) 86 (>60 ml/min/1.73 sqM)
--- NOTE | 2023-01-10 12:47 | CT ---
EXAMINATION TYPE: CT ChestAbdPelvis w con CT DLP: 1829 mGycm, Automated exposure control for dose reduction was used. DATE OF EXAM: 01/10/2023 11:26 AM COMPARISON: 07/05/2022, 01/04/2022, 08/19/2021, PET/CT 12/04/2020. CLINICAL INDICATION:Female, 72 years old with history of C18.7 MALIGNANT NEOPLASM OF SIGMOID COLON; , Hx colon ca. Follow up Technique: Multiple axial images of the chest, abdomen, and pelvis were obtained. Two-dimensional cor onal and sagittal reconstructions were obtained. Contrast used:100 mL of Isovue 300 with IV Contrast, Oral contrast used: with Oral Contrast Findings: CHEST: LUNGS/ PLEURA: No focal consolidation, pneumothorax or pleural effusion. Scattered streaky atelectasi s present. Mild emphysema changes. AIRWAY: Patent and unremarkable. HEART: The heart is mildly enlarged for size particularly the left atrium. MEDIASTINUM: No gross evidence of adenopathy. Small hiatal hernia is present. VASCULATURE: No aortic aneurysm. Right chest wall Pllbhy-i-Xjon with tip in appropriate position wit hin the superior vena cava. MUSCULOSKELETAL: No acute osseous abnormalities. SOFT TISSUES/LYMPH NODES: Right thyroid gland bilateral thyroid nodule similar to priors LOWER NECK: No significant findings. ABDOMEN: ABDOMEN LIVER: Stable hepatic cyst. GALLBLADDER AND BILE DUCTS: Unremarkable. PANCREAS: Unremarkable. SPLEEN: Unremarkable. ADRENAL GLANDS: Unremarkable. KIDNEYS AND URETERS: No evidence of hydronephrosis or renal calculus. The ureters are unremarkable. PELVIS BLADDER: Unremarkable REPRODUCTIVE: Calcifications likely representing fibroid change within the uterus. ABDOMEN & PELVIS STOMACH AND BOWEL: No evidence of bowel obstruction. Sigmoid colon and rectum appear without evidence for wall thickening. Contrast is present within the lumen. The appendix is normal. No bowel wall thi ckening. PERITONEUM: No evidence of pneumoperitoneum or free fluid. Lung the right ureter in the retroperitone um is redemonstration of suspected loculated fluid that was not FDG avid on prior PET/CT. Measuring 4 .1 x 2.5 cm which is not significantly changed from priors given differences in technique. VASCULATURE: No evidence of aortic aneurysm. MUSCULOSKELETAL: No acute osseous abnormalities, multilevel disc degeneration changes throughout the spine. There is moderate to severe degeneration of the hips with subchondral cystic change. LYMPH NODES: No gross evidence for lymphadenopathy. SOFT TISSUE/ABDOMINAL WALL: Fat-containing umbilical hernia IMPRESSION: No suspicious mass or adenopathy to suggest recurrence.
== END | disposition home or self-care (01) ==
LOC: RADCTMAIN 09:06
PROVIDERS: ATTEND Internal Medicine Hematology & Oncology
DX: C18.7 Malignant neoplasm of sigmoid colon (principal)
CPT/HCPCS: 82565; 84520; 71260; 74177; 36415; Q9967

== ENCOUNTER 2023-04-12 09:05 | Day surgery (SDC) | payer MEDICARE, OTHER ==
[2023-04-07 11:40] VITALS: BMI 29.7
--- NOTE | 2023-04-12 07:39 | P.GSHP ---
History of Present Illness H&P Date: 04/12/23 CHIEF COMPLAINT: Colon screen HISTORY OF PRESENT ILLNESS: The patient is a 72-year-old female who presents for colon screen. Lower endoscopy was offered for further evaluation and management. PAST MEDICAL HISTORY: Please see list. PAST SURGICAL HISTORY: Please see list. MEDICATIONS: Please see list. ALLERGIES: Please see list. SOCIAL HISTORY: No illicit drug use FAMILY HISTORY: No reports of Crohn disease or ulcerative colitis. REVIEW OF ORGAN SYSTEMS: CONSTITUTIONAL: No reports of fevers or chills. PHYSICAL EXAM: VITAL SIGNS: Stable GENERAL: Well-developed pleasant in no acute distress. HEENT: No scleral icterus. Extraocular movements grossly intact. Moist buccal mucosa. NECK: Supple without lymphadenopathy. CHEST: Unlabored respirations. Equal bilateral excursions. CARDIOVASCULAR: Regular rate and rhythm. Distal 2+ pulses. ABDOMEN: Soft, nontender, nondistended. MUSCULOSKELETAL: No clubbing, cyanosis, or edema. ASSESSMENT: 1. Colon screen. PLAN: 1. Recommend proceeding with a lower endoscopy Past Medical History Past Medical History: Cancer, GERD/Reflux, Hypertension, Thyroid Disorder Additional Past Medical History / Comment(s): OCCASIONAL GERD, colon cancer- received last chemo 02-19-2020, hx irregular heartbeat History of Any Multi-Drug Resistant Organisms: None Reported Past Surgical History: Bowel Resection, Section Additional Past Surgical History / Comment(s): bowel resection for colon cancer 2019, mediport R chest-, COLONOSCOPY, Past Anesthesia/Blood Transfusion Reactions: No Reported Reaction Smoking Status: Never smoker - Past Family History Mother Family Medical History: Cancer Father Family Medical History: Cancer Additional Family Medical History / Comment(s): had a lot of health problems Sister(s) Family Medical History: Cancer Additional Family Medical History / Comment(s): 2 SISTERS-BREAST CANCER. 1 SISTER CANCER IN LYMPH NODES. Medications and Allergies Home Medications Medication Instructions Recorded Confirmed Type Apixaban [Eliquis] 5 mg PO BID 07/29/20 04/07/23 History Metoprolol Succinate (ER) [Toprol 50 mg PO QAM 07/29/20 04/07/23 History Xl] methIMAzole [Tapazole] 5 mg PO Q48H 07/21/21 04/07/23 History DULoxetine HCL [Cymbalta] 30 mg PO DAILY 04/07/23 04/07/23 History Allergies Allergy/AdvReac Type Severity Reaction Status Date / Time No Known Allergies Allergy Verified 04/07/23 11:31
[2023-04-12 11:25] VITALS: TEMP 97
[2023-04-12] MEDS ORDERED: PROPOFOL 10 MG/ML 20 ML VIAL IV ONE (12:04)
--- NOTE | 2023-04-12 12:30 | P.PCN ---
Date of Procedure: 04/12/23 Description of Procedure: Grade 2 prep. Diverticulosis sigmoid colon, grade 3 external hemorrhoid. Snare and ascending colon polyp 6 mm. Repeat colonoscopy in 3 years, 2025 Plan - Discharge Summary Discharge Rx Participant: No New Discharge Prescriptions: No Action Metoprolol Succinate (ER) [Toprol Xl] 50 mg PO QAM Apixaban [Eliquis] 5 mg PO BID methIMAzole [Tapazole] 5 mg PO Q48H DULoxetine HCL [Cymbalta] 30 mg PO DAILY Discharge Medication List Apixaban [Eliquis] 5 mg PO BID 07/29/20 [History] Metoprolol Succinate (ER) [Toprol Xl] 50 mg PO QAM 07/29/20 [History] methIMAzole [Tapazole] 5 mg PO Q48H 07/21/21 [History] DULoxetine HCL [Cymbalta] 30 mg PO DAILY 04/07/23 [History]
[2023-04-12 12:49] VITALS: BP 133/86; PULSE 81; RESP 16
== END 2023-04-12 13:24 | disposition home or self-care (01) ==
LOC: ORWHC2ENDO 09:05
PROVIDERS: ATTEND Surgery Plastic and Reconstructive Surgery
DX: Z12.11 Encounter for screening for malignant neoplasm of colon (principal); D12.2 Benign neoplasm of ascending colon; I10 Essential (primary) hypertension; E78.5 Hyperlipidemia, unspecified; K21.9 Gastro-esophageal reflux disease without esophagitis; Z85.038 Personal history of other malignant neoplasm of large intestine; Z80.3 Family history of malignant neoplasm of breast; Z79.01 Long term (current) use of anticoagulants
CPT/HCPCS: 88305; 45385; J2704

== ENCOUNTER → 2023-07-07 | Outpatient (CLI) | payer MEDICARE, OTHER ==
[2023-07-07 10:10] LABS: African American GFR (CKD) >90 (>60 ml/min/1.73 sqM); Blood Urea Nitrogen 24 mg/dL (7-17); Non-African American GFR(CKD) 84 (>60 ml/min/1.73 sqM)
--- NOTE | 2023-07-07 13:39 | CT ---
EXAMINATION TYPE: CT ChestAbdPelvis w con DATE OF EXAM: 07/07/2023 COMPARISON: 01/10/2023 HISTORY: 72-year-old female obs for mets, history of colon cancer TECHNIQUE: Contiguous axial scanning of the chest, abdomen, and pelvis performed with IV Contrast, pa tient injected with 100 mL of Isovue 300. Delayed images through the kidneys were obtained. Coronal/s agittal reconstructions performed. CT DLP: 1499.60 mGycm Automated exposure control for dose reduction was used. FINDINGS: CHEST: Right anterior chest wall injection port with catheter tip at the cavoatrial junction. Redemonstrated multiple thyroid nodules measuring up to 2.7 cm in the right thyroid lobe. 2.7 cm left thyroid lobe. 2.1 cm thyroid isthmus. Heart normal size without pericardial effusion. Aorta normal caliber with conventional arch vessel branching anatomy. No thoracic lymphadenopathy by CT size criteria. Strandy scarring or atelectasis mid and lower lungs. Mild generalized emphysematous changes throughou t the lungs. No consolidation or pleural effusion. ABDOMEN: Stable 1.2 cm left liver lobe cyst. No other focal liver lesion. Portal venous system is patent. No b iliary ductal dilatation. Adrenal glands and right kidney, and atrophic pancreas show no gross abnormality. There is a small 1 cm cortical cyst medial left kidney redemonstrated. Nonspecific small 8 mm hypoden sity posterior spleen is unchanged. No dilated small bowel, free fluid, or free air. No mesenteric or retroperitoneal lymphadenopathy. Mild umbilical rectus diastases measuring 4.8 cm wide with some bulging omental fat. Oral contrast progressed to the rectum. Mild distal stool. No pericolonic inflammatory change. Normal appendix. Staple line distal sigmoid. Pelvis: Bladder nondistended. Uterus anteverted. Myometrial calcifications measuring up to 1 cm suggest under lying fibroid change. Ovaries are visualized. There is a 4.5 x 2.9 cm lobulated low density structure located above the right ovary along the expected course of the gonadal vein. This remains unchanged back to at least 03/12/2021. Etiology unclear. Possible lymphangioma or benign etiology. Otherwise, no other abnormal fluid collection in the pelvis or pelvic lymphadenopathy. Bones: There is moderate to severe degenerative change in both hips. Moderate degenerative disc disease thr oughout the thoracic spine. Hypertrophic facet arthropathy throughout the lumbar spine with degenerat bev, nearly grade 2 anterolisthesis L4-L5. Moderate degenerative disc disease lower lumbar spine. Oss eous destructive process seen. IMPRESSION: 1. A 4.5 CM LOBULATED FLUID STRUCTURE RIGHT RETROPERITONEUM, POSSIBLE LYMPHANGIOMA. STABILITY BACK TO AT LEAST 03/12/2021 SUGGEST A BENIGN ETIOLOGY. 2. STAPLE LINE AT THE DISTAL SIGMOID FROM PRIOR RESECTION AND REANASTOMOSIS. NO EVIDENCE FOR RECURREN T/METASTATIC DISEASE. 3. CORRELATE FOR MULTINODULAR GOITER.
== END | disposition home or self-care (01) ==
LOC: RADCTMAIN 09:13
PROVIDERS: ATTEND Internal Medicine Hematology & Oncology
DX: E04.1 Nontoxic single thyroid nodule (principal)
CPT/HCPCS: 82565; 84520; 71260; 74177; 36415; Q9967

== ENCOUNTER → 2024-01-09 | Outpatient (CLI) | payer MEDICARE, OTHER ==
[2024-01-09 10:08] LABS: African American GFR (CKD) >90 (>60 ml/min/1.73 sqM); Blood Urea Nitrogen 19 mg/dL (7-17); Non-African American GFR(CKD) 86 (>60 ml/min/1.73 sqM)
--- NOTE | 2024-01-11 14:03 | CT ---
EXAMINATION TYPE: CT ChestAbdPelvis w con CT DLP: 1478.20 mGycm, Automated exposure control for dose reduction was used. DATE OF EXAM: 01/09/2024 12:11 PM COMPARISON: None. CLINICAL INDICATION:Female, 73 years old with history of C18.7 colon ca; PHH, Hx colon ca, follow up Technique: CT ChestAbdPelvis w con; Multiple axial images were obtained. Two-dimensional coronal and sagittal reconstructions were obtained. Contrast used:100 mL of Isovue 300 with IV Contrast, Oral contrast used: with Oral Contrast Findings: EXAMINATION TYPE: CT ChestAbdPelvis w con CT DLP: 1478.20 mGycm, Automated exposure control for dose reduction was used. DATE OF EXAM: 01/09/2024 12:11 PM COMPARISON: 07/05/2022, 01/04/2022, 08/19/2021, PET/CT 12/04/2020. CLINICAL INDICATION:Female, 73 years old with history of C18.7 colon ca; PHH, Hx colon ca, follow up Technique: Multiple axial images of the chest, abdomen, and pelvis were obtained. Two-dimensional cor onal and sagittal reconstructions were obtained. Contrast used:100 mL of Isovue 300 with IV Contrast, Oral contrast used: with Oral Contrast Findings: CHEST: LUNGS/ PLEURA: No focal consolidation, pneumothorax or pleural effusion. Scattered streaky atelectasi s present. Mild emphysema changes. AIRWAY: Patent and unremarkable. HEART: The heart is mildly enlarged for size particularly the left atrium. MEDIASTINUM: No gross evidence of adenopathy. Small hiatal hernia is present. VASCULATURE: No aortic aneurysm. Right chest wall Opnjmi-i-Tyoy with tip in appropriate position wit hin the superior vena cava. MUSCULOSKELETAL: No acute osseous abnormalities. SOFT TISSUES/LYMPH NODES: Bilateral thyroid gland nodule similar prior. LOWER NECK: No significant findings. ABDOMEN: ABDOMEN LIVER: Stable hepatic cyst. GALLBLADDER AND BILE DUCTS: Unremarkable. PANCREAS: Unremarkable. SPLEEN: Unremarkable. ADRENAL GLANDS: Unremarkable. KIDNEYS AND URETERS: No evidence of hydronephrosis or renal calculus. The ureters are unremarkable. PELVIS BLADDER: Unremarkable REPRODUCTIVE: Calcifications likely representing fibroid change within the uterus. ABDOMEN & PELVIS STOMACH AND BOWEL: No evidence of bowel obstruction. Sigmoid colon and rectum appear without evidence for wall thickening. The appendix is normal. No bowel wall thickening. PERITONEUM: No evidence of pneumoperitoneum or free fluid. Lung the right ureter in the retroperitone um is redemonstration of suspected loculated fluid that was not FDG avid on prior PET/CT. Measuring 4 .1 x 2.5 cm which is not significantly changed from priors given differences in technique. VASCULATURE: No evidence of aortic aneurysm. MUSCULOSKELETAL: No acute osseous abnormalities, multilevel disc degeneration changes throughout the spine. There is moderate to severe degeneration of the hips with subchondral cystic change.41 LYMPH NODES: No gross evidence for lymphadenopathy. SOFT TISSUE/ABDOMINAL WALL: Fat-containing umbilical hernia IMPRESSION: 1. No suspicious mass or adenopathy to suggest recurrence. 2. 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
== END | disposition home or self-care (01) ==
LOC: RADCTMAIN 09:22
PROVIDERS: ATTEND Internal Medicine Hematology & Oncology
DX: C18.7 Malignant neoplasm of sigmoid colon (principal); I10 Essential (primary) hypertension; Z71.3 Dietary counseling and surveillance
CPT/HCPCS: 82565; 84520; 71260; 74177; 36415; Q9967

== ENCOUNTER 2024-01-26 06:37 | Day surgery (SDC) | payer MEDICARE, OTHER ==
[2024-01-23 12:27] VITALS: BMI 30.7
[~2024-01-26 06:37] MED LIST changes: -LACTATED RINGERS 1,000 ML IV SCH; +LIDOCAINE 1% (10MG/ML) FOR IV START INTRADERMA PRN; +ONDANSETRON 4 MG/2 ML VIAL IVP ONE
--- NOTE | 2024-01-26 06:51 | P.PN ---
Subjective Progress Note Date: 01/26/24 CHIEF COMPLAINT: Ventral hernia. HISTORY OF PRESENT ILLNESS: The patient is a 73-year-old female who presents with swelling along the abdomen for over 6 months with pain and tenderness. Findings were consistent with ventral hernia. Now she presents for further evaluation and management. PAST MEDICAL HISTORY: Please see list and reviewed. PAST SURGICAL HISTORY: Please see list and reviewed. MEDICATIONS: Please see list and reviewed. ALLERGIES: Please see list and reviewed. SOCIAL HISTORY: Please see list and reviewed. FAMILY HISTORY: No reports of Crohn disease or ulcerative colitis. REVIEW OF ORGAN SYSTEMS: CONSTITUTIONAL: No reports of fevers or chills. GI: Denies any blood in stools or constipation. HEENT: Denies any trouble with vision, hearing or nosebleeds. No difficulty swallowing. LYMPHATIC: The patient denies any lumps and bumps around the neck. ENDOCRINE: Denies any thyroid disorders. Denies any blood sugar glucose intolerance. RESPIRATORY: Denies pneumonia. Denies any troubles with breathing or dyspnea on exertion. CARDIOVASCULAR: Has atrial fibrillation and on blood thinners. GENITOURINARY: Denies any blood in urine or increased urinary frequency. MUSCULOSKELETAL: Denies any back pain, stiffness, joint arthritis. NEUROLOGIC: Denies any numbness or tingling along the distal extremities. No seizure disorders or headaches. PSYCHIATRIC: No suidical ideation. HEMATOLOGIC: Denies any abnormal bleeding or bruising. BREASTS: Denies any breast lumps, pain or nipple discharge. PHYSICAL EXAM: VITAL SIGNS: Stable GENERAL: Well-developed pleasant female in no acute distress. HEENT: No scleral icterus. Extraocular movements grossly intact. Moist buccal mucosa. NECK: Supple without lymphadenopathy. CHEST: Unlabored respirations. Equal bilateral excursions. CARDIOVASCULAR: Distal 2+ pulses. Abdomen: Approximately 3 cm incarcerated hernia just above the umbilicus. Well healed lower midline incision. MUSCULOSKELETAL: No clubbing, cyanosis, or edema. SKIN: Well perfused. PSYCH: Alert and oriented. No focal or lateralizing signs. ASSESSMENT: 1. Ventral hernia. 2. Atrial fibrillation and on blood thinners PLAN: 1. Recommend proceeding with robotic ventral hernia repair with mesh. 2. Benefits and risks of surgical intervention was discussed including possibility of open technique. 3. DVT prophylaxis. 4. Antibiotic prophylaxis. 5. She is elevated risk being on blood thinners. 6. Nutritional assessment addressed 7. Non-narcotic pain managment reviewed. 8. Abdominal wall block discussed.
[2024-01-26] MEDS ORDERED: fentaNYL (PF) 50 MCG/ML 2 ML AMP IV PRN (07:00)
[2024-01-26] MEDS ORDERED: MIDAZOLAM 2 MG/2 ML VIAL IV PRN (07:00)
[2024-01-26] MEDS: IV FLUID CONTINUATION 1,000 ML IV ONE (07:36)
[2024-01-26] MEDS: ACETAMINOPHEN TAB 500 MG TAB PO PRN (08:02)
[2024-01-26] MEDS: ONDANSETRON 4 MG/2 ML VIAL IVP PRN (08:03)
[2024-01-26] MEDS: HEPARIN SODIUM,PORCINE 5,000 UNIT/ML 1 ML VIAL SQ PRN (08:03)
[2024-01-26] MEDS: MELOXICAM 7.5 MG TAB PO PRN (08:03)
[2024-01-26] MEDS: DEXAMETHASONE SOD PHOSPHATE 4 MG/ML 1 ML VIAL IV ONE (08:04)
[2024-01-26] MEDS: MIDAZOLAM 2 MG/2 ML VIAL IVP ONE (08:13)
[2024-01-26 08:42] LABS: Basophils % (A) 1 %; Eosinophils # (A) 0.1 k/uL (0-0.7); Eosinophils % (A) 1 %; HCT 47.7 % (34.0-46.0); HGB 15.4 gm/dL (11.4-16.0); Lymphocytes # (A) 1.4 k/uL (1.0-4.8); Lymphocytes % (A) 19 %; MCH 29.5 pg (25.0-35.0); MCHC 32.3 g/dL (31.0-37.0); MCV 91.2 fL (80.0-100.0); Mean Platelet Volume 6.9; Monocytes # (A) 0.3 k/uL (0-1.0); Monocytes % (A) 4 %; Neutrophils # (A) 5.5 k/uL (1.3-7.7); Neutrophils % (A) 75 %; Platelet Count 259 k/uL (150-450); RBC 5.22 m/uL (3.80-5.40); RDW 12.8 % (11.5-15.5); WBC 7.3 k/uL (3.8-10.6)
[2024-01-26 08:50] LABS: INR 1.1 (<1.2); Prothrombin Time 11.5 sec (10.0-12.5)
[2024-01-26 08:53] LABS: ALT 18 U/L (4-34); African American GFR (CKD) >90 (>60 ml/min/1.73 sqM); Anion Gap 6 mmol/L; Blood Urea Nitrogen 19 mg/dL (7-17); Calcium 9.3 mg/dL (8.4-10.2); Carbon Dioxide 23 mmol/L (22-30); Chloride 109 mmol/L (98-107); Non-African American GFR(CKD) 90 (>60 ml/min/1.73 sqM); Sodium 138 mmol/L (137-145)
[2024-01-26] MEDS ORDERED: fentaNYL (PF) 50 MCG/ML 2 ML AMP ONE (09:01)
[2024-01-26] MEDS ORDERED: HYDROmorphone (PF) 1 MG/ML ONE (09:01)
[2024-01-26] MEDS ORDERED: ROCURONIUM 10 MG/ML (5 ML VIAL) IV ONE (09:01)
[2024-01-26] MEDS ORDERED: SUCCINYLCHOLINE CHLORIDE 200 MG/10 ML VIAL IV ONE (09:01)
[2024-01-26] MEDS ORDERED: SODIUM CHLORIDE 0.9% (PF) 10 ML VIAL ONE (09:01)
[2024-01-26] MEDS ORDERED: ROPIVACAINE 5 MG/ML 30 ML VIAL ONE (09:01)
[2024-01-26] MEDS ORDERED: GLYCOPYRROLATE 0.2 MG/ML 2 ML VIAL ONE (09:01)
[2024-01-26] MEDS ORDERED: DEXAMETHASONE SOD PHOSPHATE 4 MG/ML 1 ML VIAL ONE (09:01)
[2024-01-26] MEDS ORDERED: NEOSTIGMINE 1 MG/ML 10 ML VIAL ONE (09:01)
[2024-01-26] MEDS ORDERED: PROPOFOL 10 MG/ML 20 ML VIAL IV ONE (09:01)
[2024-01-26 09:05] LABS: Glucose 99 mg/dL (74-99)
[2024-01-26 09:06] LABS: Potassium 4.8 mmol/L (3.5-5.1); Total Bilirubin 2.2 mg/dL (0.2-1.3); Total Protein 7.9 g/dL (6.3-8.2)
[2024-01-26 09:07] LABS: AST 45 U/L (14-36); Alkaline Phosphatase 101 U/L (38-126)
[2024-01-26] MEDS: LIDOCAINE 1%-EPI 1:100,000 20 ML VIAL SQ ONE (09:38)
--- NOTE | 2024-01-26 10:10 | P.ANPRN ---
Procedure Note - Anesthesia - Nerve Block Performed Bilateral Erector Spinae Single Time Out Performed: Yes (811) Date of Procedure: 01/26/24 Location of Patient: PreOp Indication: Acute Post-Operative Pain, Analgesia, Dx/Pain Location ([place]), Requested by Surgeon Specifically requested for management of pain by DrMaxi: Renetat Arriaga Sedation Type: Sedate with meaningful contact maintained Preparation: Sterile Prep Position: Prone Catheter: None Needle Types: Pajunk Needle Gauge: 21 Ultrasound used to visualize needle placement: Yes Ultrasound used to observe medication spread: Yes Injectate: 0.5% Ropivacaine (see comment for volume) (20 cc + 10 cc of Normal saline + 2 mg of decadron on each side) Blood Aspirated: No Pain Paresthesia on Injection Noted: No Resistance on Injection: Normal Image Stored and Saved: Yes Events: Uneventful and Well Tolerated
[2024-01-26] MEDS: LACTATED RINGERS 1,000 ML IV SCH (10:43)
[2024-01-26 11:19] VITALS: TEMP 98
[2024-01-26] MEDS: HYDROmorphone 0.5 MG/0.5 ML SYRINGE IVP PRN (12:05)
[2024-01-26 14:03] VITALS: RESP 16
[2024-01-26 14:26] VITALS: BP 126/78; PULSE 83
--- NOTE | 2024-01-30 10:23 | P.OP ---
Date of Procedure: 01/26/24 Description of Procedure: SURGEON: RENETTA ARRIAGA MD PREOPERATIVE DIAGNOSES: 1. Initial incarcerated ventral hernia 2. Obesity due to excess calories, BMI 31.2 3. Hypertensive heart disease 4. Atrial fibrillation 5. Depressive disorder 6. Chronic anticoagulation POSTOPERATIVE DIAGNOSES: 1. Initial incarcerated incisional hernia, 11 x 5 cm 2. Obesity due to excess calories, BMI 31.2 3. Hypertensive heart disease 4. Atrial fibrillation 5. Depressive disorder 6. Chronic anticoagulation 7. Peritoneal adhesions OPERATION: 1. Robotic-assisted da Jamey Xi laparoscopic repair of initial incarcerated incisional hernia, 11 x 5 cm with mesh, ventralight ST mesh 10 cm x 15 cm 2. Robotic-assisted da Jamey Xi laparoscopic lysis of adhesions Anesthesia: GETA, regional, local Estimated Blood Loss (ml): 5 Pathology: None COMPLICATIONS: None. Operative Findings: 1. Midline epigastric ventral hernia defect 11 x 5 cm 2. Fascia repaired using #1 V-lock suture INDICATIONS: The patient is a 73-year-old female who presents with a personal history of multiple abdominal wall hernias. Surgical intervention with laparoscopic versus robotic and open techniques were reviewed. Placement of mesh was also reviewed. Benefits and risks were thoroughly described. Informed consent was obtained. DESCRIPTION OF PROCEDURE: The patient was brought into the operating room and laid in supine position. After general induction, the abdomen had been prepped and draped in standard sterile fashion. Ioban draping was also placed. Prior to incision, a timeout protocol was confirmed with surgical team regarding the patient's name including procedures to be performed. The robot was primed prior to the procedure. A field block using local anesthetic was placed along hernia site including the proposed port sites. Initial incision was made with an #11 blade along the left upper quadrant. A 0 degree 5 mm laparoscopic trocar entry was performed and insufflated. Three 8 mm ports were placed along the left lateral abdominal wall under direct localization after exchanging the 5-mm for an 8 mm port. Placements of the ports were 15 cm from the target anatomy and 10 cm apart. An accessory 12 mm port was placed at the left upper quadrant for exchange of mesh including sutures. The [employer] Xi robot was previously primed, prepped and draped then docked from the right side of the patient onto the left side of the patient. I then sat at the robot Da Jamey Xi console where working arms of the robot including Bovie cautery connected to robotic scissors, needle m48/m60 tank driver, and graspers placed by the physical therapist assistant. Incarcerated omental contents were found along the upper midline defect including umbilicus. Moderate midline peritoneal adhesions were identified. Findings were consistent with prior incisional hernia. Extensive lysis of adhesions was performed using vessel sealer including hook artery. Length of defect of 1111 cm in width of 5 cm was found consistent with an incarcerated ventral/incisional hernia. The incarcerated contents were reduced as the peritoneal fat was cleaned from the abdominal wall. Next, hemostasis was checked with cautery. The hernia defects were oversewn using #1 nonabsorbable V-lock suture with fascial imbrication x 2. Next, ventralight ST mesh 10 cm x 15 cm was placed with the rough side towards the abdominal wall as to cover the midline defect. 2-0 VLOC 12 inch sutures were used to fixate the mesh. A final endoscopic imaging was obtained. All instruments and pneumoperitoneum were evacuated from the abdominal cavity. The da Jamey Xi robot was undocked from the patient. I re-scrubbed into the case for closure of incisions. The fascia of the 12-mm port was probed and closed using 0 Vicryl and Nikhil Jenkins. The incisions were reapproximated using 4-0 Monocryl in an interrupted subcuticular fashion. Liquid glue was applied to the skin after cleansing the skin with normal saline and dilute hydrogen peroxide. An abdominal binder was placed. An umbilical dressing was placed prior. At the end of the procedure, needle, sponge, and instrument count had been verified correct by surgical nurse practitioner. The patient was taken to the postanesthesia care unit in stable condition. Plan - Discharge Summary Discharge Rx Participant: No New Discharge Prescriptions: New Simethicone [Gas-X] 125 mg PO AC-TID PRN #20 capsule PRN Reason: Pain Acetaminophen Tab [Tylenol Tab] 1,000 mg PO Q6HR PRN #30 tablet PRN Reason: Pain Continue Metoprolol Succinate (ER) [Toprol XL] 50 mg PO QAM Apixaban [Eliquis] 5 mg PO BID methIMAzole [Tapazole] 5 mg PO DIRECTED DULoxetine HCL [Cymbalta] 30 mg PO DAILY Discharge Medication List Apixaban [Eliquis] 5 mg PO BID 07/29/20 [History] Metoprolol Succinate (ER) [Toprol XL] 50 mg PO QAM 07/29/20 [History] methIMAzole [Tapazole] 5 mg PO DIRECTED 07/21/21 [History] DULoxetine HCL [Cymbalta] 30 mg PO DAILY 04/07/23 [History] Acetaminophen Tab [Tylenol Tab] 1,000 mg PO Q6HR PRN #30 tablet 01/26/24 [Rx] Simethicone [Gas-X] 125 mg PO AC-TID PRN #20 capsule 01/26/24 [Rx] Follow up Appointment(s)/Referral(s): Renetta Arriaga MD [STAFF PHYSICIAN] - 01/30/24 6:30 pm (Telehealth) Patient Instructions/Handouts: *Surgery [facility] - (Anesthesia) Discharge Instructions Outpatient Surgery, Laparoscopic Herniorrhaphy (DC), Abdominal Binder (DC), Ventral Hernia Repair (DC) Activity/Diet/Wound Care/Special Instructions: TELEHEALTH - DR WILL CALL YOU BETWEEN 6 pm to 8 pm DO NOT START BLOOD THINNER UNTIL Monday01/29/24 Use ice for pain Eat 60 grams to 80 grams of protein daily for optimal recovery No lifting for 4 pounds in 4 weeks, February 24 NO LONG DRIVES OR AIRPLANE RIDES OVER 30 MINUTES FOR THE NEXT 2 WEEKS DUE TO HIGH RISK OF PULMONARY EMBOLISM/DVTs Using antibacterial soap. December shower. No bathtub soaks for 2 weeks, February 08 Wear abdominal binder daily for comfort except for showering for 2 weeks Use ice along incisions for today to prevent swelling. Use Tylenol, simethicone scheduled for the next 24-48 hours for best pain relief . Discharge Disposition: HOME SELF-CARE
== END 2024-01-26 14:36 | disposition home or self-care (01) ==
LOC: OR 06:37
PROVIDERS: ATTEND Surgery Plastic and Reconstructive Surgery
DX: K43.0 Incisional hernia with obstruction, without gangrene (principal); G89.18 Other acute postprocedural pain; I11.9 Hypertensive heart disease without heart failure; I48.91 Unspecified atrial fibrillation; F32.A Depression, unspecified; K66.0 Peritoneal adhesions (postprocedural) (postinfection); E66.09 Other obesity due to excess calories; Z79.01 Long term (current) use of anticoagulants; Z68.31 Body mass index [BMI] 31.0-31.9, adult; Z79.899 Other long term (current) drug therapy
CPT/HCPCS: 64999; 80053; 85025; 85610; 49592; C1781; J2250; J0330; J1644; J1100; J2710; J0690; J2405; J3010; J1170 ×2; J2795; J2704

== ENCOUNTER → 2024-02-21 | Outpatient (CLI) | payer MEDICARE, OTHER ==
--- NOTE | 2024-02-21 09:34 | US ---
EXAMINATION TYPE: US gallbladder DATE OF EXAM: 02/21/2024 COMPARISON: CT chest abdomen pelvis 01/09/24 CLINICAL INDICATION: Female, 73 years old with history of R10.11 RIGHT UPPER QUADRANT PAIN; RUQ pain - patient states no longer experiencing symptoms TECHNIQUE: Multiple sonographic images of the right upper quadrant are obtained. FINDINGS: EXAM MEASUREMENTS: Liver Length: 11.7 cm Gallbladder Wall: 0.16 cm CBD: 0.36 cm Right Kidney: 10.4 x 4.4 x 4.6 cm TANK CREWMEMBER NOTES: Pancreas: limited visualization due to overlying bowel gas Liver: No masses noted Gallbladder: Appears wnl Evidence for sonographic Leung's sign: No CBD: wnl Right Kidney: wnl The visualized portions of the pancreas unremarkable. Liver is unremarkable without focal lesion iden tified. Gallbladder appears within normal limits without evidence of wall thickening, cholelithiasis, or surrounding fluid. Negative sonographic Leung sign. Common bile duct is within normal limits. Ri ght kidney demonstrates no hydronephrosis, nephrolithiasis, or solid mass. IMPRESSION: No ultrasound evidence for an acute process.
== END | disposition home or self-care (01) ==
LOC: RADUSWWP 08:56
PROVIDERS: ATTEND Surgery Plastic and Reconstructive Surgery
DX: R10.11 Right upper quadrant pain (principal)
CPT/HCPCS: 76705

== ENCOUNTER → 2024-07-16 | Outpatient (CLI) | payer MEDICARE, OTHER ==
[2024-07-16 10:06] LABS: African American GFR (CKD) 85 (>60 ml/min/1.73 sqM); Blood Urea Nitrogen 15 mg/dL (7-17); Non-African American GFR(CKD) 74 (>60 ml/min/1.73 sqM)
--- NOTE | 2024-07-16 13:24 | CT ---
EXAMINATION TYPE: CT ChestAbdPelvis w con CT DLP: 1795 mGycm, Automated exposure control for dose reduction was used. DATE OF EXAM: 07/16/2024 11:40 AM COMPARISON: Multiple CT Chest Abdomen Pelvis with most recent 01/09/2024 CLINICAL INDICATION:Female, 73 years old with history of C18.7 COLON CANCER I10 Z71.3; PHH, COLON CA Technique: Multiple axial images of the chest, abdomen, and pelvis were obtained following the intrav enous administration of 100 mL Isovue-300. Oral contrast was administered. Two-dimensional coronal an d sagittal reconstructions were obtained. Findings: CHEST: LUNGS/ PLEURA: No focal consolidation, pneumothorax or pleural effusion. Scattered streaky linear sca rring present. Mild emphysema changes. No suspicious pulmonary nodule or mass. AIRWAY: Patent and unremarkable. HEART: The heart is mildly enlarged for size particularly the left atrium. No pericardial effusion. MEDIASTINUM: No gross evidence of adenopathy. Small hiatal hernia is present. VASCULATURE: No aortic aneurysm. Right chest wall [id number]-u-[id number] with tip in appropriate position wit hin the superior vena cava. MUSCULOSKELETAL: No acute osseous abnormalities. No aggressive osseous lesion. Multilevel degenerativ e disc disease. SOFT TISSUES/LYMPH NODES: Increased size of right lateral chest wall 1.8 cm superficial ovoid lesion (series 3, image 48), previously measured 1.1 cm. LOWER NECK: Similar appearance of multinodular thyroid gland with coarse calcifications.. ABDOMEN: ABDOMEN LIVER: Stable hepatic cyst. GALLBLADDER AND BILE DUCTS: Unremarkable. PANCREAS: Unremarkable. SPLEEN: Unremarkable. ADRENAL GLANDS: Unremarkable. KIDNEYS AND URETERS: No evidence of hydronephrosis or renal calculus. The enhance symmetrically. Cont rast is demonstrated within both collecting systems on delayed phase. 1.5 cm medial left kidney heter ogenous lesion (series 10, image 24). This is mildly increased in size than expected 2019 when it was approximately 1.0 cm. PELVIS BLADDER: Underdistended, limiting evaluation. REPRODUCTIVE: Calcifications likely representing fibroid change within the uterus. ABDOMEN & PELVIS STOMACH AND BOWEL: Enteric contrast reaches the rectum. No evidence of bowel obstruction. Sigmoid col on and rectum appear without evidence for wall thickening. Anastomosis in the region of the rectosigm oid junction without evidence of wall thickening. The appendix is normal. No bowel wall thickening. PERITONEUM: No evidence of pneumoperitoneum or free fluid. Adjacent to the right ureter in the retrop eritoneum is redemonstration of loculated fluid that was not FDG avid on prior PET/CT. Measuring 4.9 x 2.4 cm which is not significantly changed from priors given differences in technique. VASCULATURE: No evidence of aortic aneurysm. MUSCULOSKELETAL: No acute osseous abnormalities, multilevel disc degeneration changes throughout the spine. Levocurvature of the lumbar spine. There is moderate to severe osteoarthritic changes of the h ips with subchondral cystic change. No aggressive osseous lesion. Stable grade 1 anterolisthesis of L 4 on L5 without evidence of pars defects. LYMPH NODES: No evidence for lymphadenopathy. SOFT TISSUE/ABDOMINAL WALL: Postsurgical changes of the midline anterior lower abdominal wall. IMPRESSION: 1. Postsurgical changes of the colon without evidence for local recurrence. 2. Marginal increase in size of medial left kidney 1.5 cm indeterminate lesion dating back to 2019. Further evaluation with MR abdomen renal mass protocol is recommended. 3. 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 I4. Increasing size of indeterminate right lateral chest superficial lesion measuring up to 1.8 cm. D ermatology consult is recommended. [facility], , 07/16/2024 1:22 PM
== END | disposition home or self-care (01) ==
LOC: RADCTMAIN 09:27
PROVIDERS: ATTEND Internal Medicine Hematology & Oncology
DX: C18.7 Malignant neoplasm of sigmoid colon (principal); I10 Essential (primary) hypertension; M16.0 Bilateral primary osteoarthritis of hip; K76.89 Other specified diseases of liver; Z71.3 Dietary counseling and surveillance; Z98.890 Other specified postprocedural states
CPT/HCPCS: 36415; 71260; 74177; 82565; 84520

== ENCOUNTER → 2024-07-30 | Outpatient (CLI) | payer MEDICARE, OTHER ==
--- NOTE | 2024-07-30 09:50 | MM ---
Reason for Exam: Screening (asymptomatic). Last mammogram was performed 2 year(s) and 0 month(s) ago. Patient History: Menarche at age 12. First Full-Term at age 39. Late child-bearing (after 30). Postmenopausal. 04/09/2020, Benign Core Biopsy on the left side. Sister had breast cancer, age 50. Sister had breast cancer. Risk Values: Esme 5 year model risk: 5.6%. NCI Lifetime model risk: 11.7%. Prior Study Comparison: 04/09/2020 Left Diagnostic Mammogram, [facility]. 12/29/2020 Bilateral Diagnostic Mammogram, [facility]. 07/26/2022 Bilateral MG 3D screening mammo w/cad, [facility]. Tissue Density: The breasts are heterogeneously dense, which may obscure small masses. Findings: Analyzed By CAD. Left breast biopsy clip. Right breast Mrvmnq-m-Gigi slightly obscures the posterior aspect of the Myoview. Right breast: There is no suspicious group of microcalcifications or new suspicious mass. Left breast: There is no suspicious group of microcalcifications or new suspicious mass. Overall Assessment: Benign, BI-RAD 2 Management: Screening Mammogram of both breasts in [address] [facility] will attempt to contact patient to return for supplemental views and ultrasound if indicated. Patient should continue monthly self-breast exams. A clinical breast exam by your physician is recommended on an annual basis. This exam should not preclude additional follow-up of suspicious palpable abnormalities. Note on Esme scores and lifetime risk: 1. A Esme score greater than 3% is considered moderate risk. If this is the case, consider specialist referral to assess eligibility for a risk reducing agent. 2. If overall lifetime risk for the development of breast cancer is 20% or higher, the patient may qualify for future screening with alternating mammogram and breast MRI. [facility], , 07/30/2024 9:47 AM. Electronically signed and approved by: Osei Villarreal DO
== END | disposition home or self-care (01) ==
LOC: RADMAMWWP 09:08
PROVIDERS: ATTEND Internal Medicine Geriatric Medicine
DX: Z12.31 Encounter for screening mammogram for malignant neoplasm of breast (principal); Z13.820 Encounter for screening for osteoporosis; Z78.0 Asymptomatic menopausal state; Z80.3 Family history of malignant neoplasm of breast; R92.333 Mammographic heterogeneous density, bilateral breasts; Z98.82 Breast implant status
CPT/HCPCS: 77063; 77067; 77080

== ENCOUNTER → 2024-08-27 | Outpatient (CLI) | payer MEDICARE, OTHER ==
--- NOTE | 2024-08-27 16:13 | MR ---
EXAMINATION TYPE: MR abdomen wo/w con DATE OF EXAM: 08/27/2024 9:25 AM COMPARISON: Prior CT July 16, 2024 CLINICAL INDICATION: Female, 73 years old with history of C18.7 colon ca, Hx of colon cancer, abnorma l CT imaging IV Contrast: 9 cc Gadobutrol (None if empty) CONTRAST: Standard multiplanar, multisequence MRI departmental protocol images were obtained without contrast a nd with 9 mL intravenous Gadobutrol gadolinium contrast. FINDINGS: Kidneys: Kidneys are symmetric and normal in size. Corresponding to recent CT along the medial aspect of the upper to mid pole of the left kidney and there is persistent round circumscribed 1.3 cm lesio n having slight diminished T1 and T2 signal with some mild heterogeneous post contrast enhancement. L esion tough to distinctly characterize due to small size. Remainder of both kidneys shows no concerni ng solid or cystic mass Other: Lung bases are grossly clear. The liver, gallbladder, spleen, and both adrenal glands appear w ithin normal limits. There is some pancreatic atrophy with occasional tiny cyst or cystic lesion, for reference a 5 mm lesion in the body axial image 31. No biliary or pancreatic ductal dilatation. No a bnormal small or large bowel dilatation. Persistent thin-walled cyst or lobulated fluid collection in the posterior right lower quadrant measuring 5.0 x 4.5 cm coronal image 14 consistent with known lym phangioma. There is scoliosis and multilevel degenerative change in the lumbar spine. Significant spi nal canal stenosis at L4-L5 level is seen. IMPRESSION: Nonspecific findings medial left renal lesion. It is only slow growing since 2020 CT. Mal ignant etiology not entirely excluded but presence of slow growth and low signal on T2-weighted image s with minimal linear internal enhancement all favor a benign etiology. At minimum continued imaging monitoring is advised. [facility], , 08/27/2024 4:11 PM
== END | disposition home or self-care (01) ==
LOC: RADMRIMAIN 08:06
PROVIDERS: ATTEND Internal Medicine Hematology & Oncology
DX: C18.7 Malignant neoplasm of sigmoid colon (principal); N28.9 Disorder of kidney and ureter, unspecified; Z85.038 Personal history of other malignant neoplasm of large intestine
CPT/HCPCS: 74183; A9585

== ENCOUNTER → 2025-02-11 | Outpatient (CLI) | payer MEDICARE, OTHER ==
[2025-02-11 09:30] LABS: African American GFR (CKD) >90 (>60 ml/min/1.73 sqM); Blood Urea Nitrogen 22 mg/dL (7-17); Non-African American GFR(CKD) 87 (>60 ml/min/1.73 sqM)
--- NOTE | 2025-02-11 11:43 | CT ---
EXAMINATION TYPE: CT ChestAbdPelvis w con DATE OF EXAM: 02/11/2025 11:03 AM COMPARISON: 07/16/2024 CLINICAL INDICATION: Female, 74 years old with history of C18.7 MALIGNANT NEOPLASM OF SIGMOID COLON, Hx sigmoid colon ca TECHNIQUE: CT ChestAbdPelvis w con , with sagittal coronal reformats. If MIP/3-D images were created, there are created on a separate workstation. Contrast used:100 mL of Isovue 300 with IV Contrast, (none if empty) Oral contrast used: with Oral Contrast (none if empty) CT DLP: 1371.90 mGycm, Automated exposure control for dose reduction was used. FINDINGS: CT CHEST: There is irregular hypodensity within the right lobe thyroid measuring 1.3 cm. A larger hypodense are as within the left lobe thyroid measuring 1.8 cm. Some calcification and enlargement below the isthmu s is present. Ultrasound recommended for additional thyroid evaluation. No suspicious lung nodules or focal infiltrates are present. No enlarged mediastinal or hilar adenopathy is evident. No significant coronary artery calcification s. The ascending aorta diameter at the level of the main pulmonary artery is 3.4 cm. The main pulmonary artery diameter at the bifurcation is 2.[address] ABDOMEN: Liver: Normal Spleen: Normal Pancreas: Somewhat atrophic Adrenal glands: The adrenal glands are normal. Gallbladder: Normal Kidneys: No masses are evident. No hydronephrosis is present. No cysts are present. Delayed images were obtained through the kidneys, which remain unremarkable. Aorta: Vascular calcification is within the aorta. Inferior vena cava: Normal. CT PELVIS: Within the right hemipelvis there is a soft tissue density measuring 6.2 x 2.2 cm. This ap pears somewhat more lateral than previously identified anterior to the psoas muscle. Prior measuremen t 4.9 x 2.4 cm example image series 3 image 89. Loops of bowel within the abdomen and pelvis are normal. There are loops of bowel which are incom pletely distended or lack oral contrast limiting their evaluation. No local recurrent sigmoid neoplas m identified. Appendix: Normal as visualized. Urinary bladder: Normal. Genitourinary structures: Uterus contains a couple of calcifications may be calcified fibroids. Adnex a appear normal. Osseous structures: No suspicious lytic or sclerotic lesions. Advanced degenerative changes with subc hondral cyst formation is within the femoral heads and acetabulum. Degenerative disc changes and face t changes are within the lumbar spine. IMPRESSION: 1. Subtle enlargement of the soft tissue density anterior to the right psoas muscle right lower quadr ant. 2. No additional areas suspicious for metastatic disease or recurrence. 3. Stable appearing heterogenous thyroid. Consider evaluation with ultrasound. [facility], , 02/11/2025 11:41 AM
== END | disposition home or self-care (01) ==
LOC: RADCTMAIN 08:26
PROVIDERS: ATTEND Internal Medicine Hematology & Oncology
DX: C18.7 Malignant neoplasm of sigmoid colon (principal); E07.89 Other specified disorders of thyroid; J98.4 Other disorders of lung
CPT/HCPCS: 82565; 84520; 71260; 74177; 36415; Q9967

== ENCOUNTER → 2025-03-06 | Outpatient (CLI) | payer MEDICARE, OTHER ==
--- NOTE | 2025-03-09 08:43 | PE ---
EXAMINATION TYPE: PET CT fusion skull to thigh DATE OF EXAM: 03/06/2025 CLINICAL INDICATION:Female, 74 years old with history of C18.7 COLON CANCER; TECHNIQUE: Following the intravenous administration of 10.98 mCi of F-18 FDG, whole body images are performed from the skull base to the midthigh. Images are reviewed on the computer in the coronal, axial, and sagittal planes. Reconstructed rotating images are created on independent workstation and reviewed on the computer. A non-contrast CT is performed in conjunction with the PET scan. Glucose level 103 mg/dL CT DLP: 768 mGycm, Automated exposure control for dose reduction was used. COMPARISON: CT 02/11/2025, 07/16/2024, 01/09/2024, 07/07/2023, PET/CT 12/04/2020, MRI: 08/27/2024 FINDINGS: Mediastinal SUV mean is 2.6. Hepatic parenchyma SUV mean is 0.3. SKULL BASE AND NECK: Multinodular thyroid gland with microcalcifications. There is focal increased radiotracer uptake with in the right thyroid lobe with a maximum SUV of 8.3. Right-sided palatine tonsilloliths. Increased radiotracer uptake within the right palatine tonsils co mpared to the left with a maximum SUV of 7.3. Likely related to inflammatory/infectious process. CHEST, MEDIASTINUM, AND HILAR REGION: Right lateral chest wall subcutaneous tissue 1.9 cm lesion. Demonstrates a max SUV of 3.4. ABDOMEN AND PELVIS: Postsurgical changes with anastomosis at the rectosigmoid junction. No focal wall thickening in this region. No suspicious radiotracer activity. Lobulated well-circumscribed cystic lesion measuring 5.5 x 2.2 cm anterior to the right psoas muscle within the right lower quadrant redemonstrated. No suspicious FDG activity. This is favored represent a lymphangioma. MUSCULOSKELETAL STRUCTURES: No suspicious radiotracer activity. OTHER CT: Multiple posterior scalp subcutaneous lesions likely representing sebaceous cysts versus pi lomatricomas. Anterior right chest wall Mediport catheter distal tip terminating at the superior cavo atrial junction. Cardiomegaly. Elevation of the right hemidiaphragm. Punctate nonobstructing right re nal upper pole calculus. Calcified fibroid uterus. Bilateral lower lobe dependent subsegmental atelec tasis with scattered linear scarring or atelectasis within the lungs. Multilevel degenerative changes of the spine. Advanced osteoarthritic changes of both hips. IMPRESSION: 1. No suspicious radiotracer activity to suggest colon cancer recurrence/metastasis. 2. Right lower quadrant cystic lesion redemonstrated probably representing a lymphangioma. No suspic ious radiotracer activity. 3. Right lateral chest subcutaneous tissue lesion with low-level FDG activity. This is indeterminate but favored to represent a benign lesion such as a sebaceous cyst. Consider dermatology consult. 4. Right-sided palatine tonsilloliths with increased radiotracer uptake suggesting an infectious/inf lammatory process. 5. Multinodular thyroid gland with focally increased radiotracer uptake within the right thyroid lob e again. Consider further evaluation with thyroid ultrasound and possibly sampling to rule out primar y thyroid neoplasm. [facility], , 03/09/2025 8:40 AM
== END | disposition home or self-care (01) ==
LOC: RADPETMAIN 08:21
PROVIDERS: ATTEND Internal Medicine Hematology & Oncology
DX: C18.7 Malignant neoplasm of sigmoid colon (principal); J35.8 Other chronic diseases of tonsils and adenoids; L72.3 Sebaceous cyst
CPT/HCPCS: 78815; A9552